=== PATIENT | male | born 1950 | race Two or more races ===

== ENCOUNTER 2021-02-14 07:01 | Day surgery (SDC) | payer OTHER, MEDICAID, SELFPAY ==
--- NOTE | 2021-02-11 16:35 | MHC.SHP ---
Pre-Procedural Eval Section A Date of Service: 02/11/21 The patient is an INPATIENT: No Changes since office visit: No Cold of Flu in the past 2 weeks, No New Medical Problems, No Changes in Medication and No Patient answered all questions The History & Physical has been completed within 30 days and I have reviewed it.: Yes Section B Chief Complaint: cataract Allergies: Allergies Allergy/AdvReac Type Severity Reaction Status Date / Time aspirin [ASPIRIN] Allergy Severe ANAPHYLAXIS Unverified 02/19/20 15:27 ibuprofen [From MOTRIN] Allergy Severe ANAPHYLAXIS Unverified 02/19/20 15:27 Penicillins Allergy Severe ANAPHYLAXIS Unverified 02/19/20 15:27 asenapine [From SAPHRIS] Allergy Intermediate ITCHING Unverified 02/19/20 15:27 influenza virus vaccine, Allergy Intermediate DIZZINESS/S Unverified 02/19/20 15:27 specific OB/CP [FLU VACCINE] quetiapine [From SEROQUEL] Allergy Intermediate HTN Unverified 02/19/20 15:27 morphine [MORPHINE] Allergy Unknown Unknown Unverified 02/08/21 14:53 penicillin G Allergy Unknown Unknown Verified 02/08/21 14:53 ChlorproMAZINE Allergy Unknown Unknown Uncoded 02/08/21 14:53 Clindamycin HCl Allergy Unknown Unknown Uncoded 02/08/21 14:53 Plan Diagnosis/Plan: Unchanged I have reviewed the history and physical and performed a pertinent physical examination on my patient. No changes have occurred unless specified.
[2021-02-14 08:24] VITALS: BP 133/89; PULSE 76; RESP 16; TEMP 36.2; O2SAT 96; BMI 27.6
[2021-02-14] MEDS: Tetracaine HCl/PF 0.5% Oph Sol 4 ML DROPS 1 DROP EYE-RIGHT (08:28)
--- NOTE | 2021-02-14 08:31 | HO.ANESPROP2 ---
HPI - Anesthesia Eval Consult details Narrative: 70 yo male patient for Right cataract extraction, IOL insertion PMFSH Active Problems Active Problems: States heart does not pump well . No documentation of this in medical records. Last echo from 2011 done for CP was normal with EF 60-65%. 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 Past Medical History Medical History Arthritis Back pain BPH (benign prostatic hyperplasia) Depression Elevated cholesterol History of traumatic head injury HTN (hypertension) Schizophrenia Sleep apnea Family History Family history of problems with anesthesia: No Surgical History Surgical History H/O colonoscopy History of esophagogastroduodenoscopy (EGD) History of gastric surgery History of surgery Hx of cataract extraction Hx of cholecystectomy Hx of cystoscopy History of Problems with Anesthesia: No Social History Social History Patient Tobacco Use Status: Never used Tobacco Use of substances other than those prescribed or required for medical reasons: No Advance Directives Information Provided: No Meds Allergies Allergy/AdvReac Type Severity Reaction Status Date / Time aspirin [ASPIRIN] Allergy Severe ANAPHYLAXIS Verified 02/14/21 08:28 ibuprofen [From MOTRIN] Allergy Severe ANAPHYLAXIS Verified 02/14/21 08:28 Penicillins Allergy Severe ANAPHYLAXIS Verified 02/14/21 08:28 asenapine [From SAPHRIS] Allergy Intermediate ITCHING Verified 02/14/21 08:28 influenza virus vaccine, Allergy Intermediate DIZZINESS/S Verified 02/14/21 08:28 specific OB/CP [FLU VACCINE] quetiapine [From SEROQUEL] Allergy Intermediate HTN Verified 02/14/21 08:28 morphine [MORPHINE] Allergy Unknown Unknown Verified 02/14/21 08:28 penicillin G Allergy Unknown Unknown Verified 02/14/21 08:28 ChlorproMAZINE Allergy Unknown Unknown Uncoded 02/08/21 14:53 Clindamycin HCl Allergy Unknown Unknown Uncoded 02/08/21 14:53 Active Medications: Current Medications Generic Name Dose Route Start Last Admin Trade Name Freq PRN Reason Stop Dose Admin Povidone Iodine 1 appl 02/14/21 07:49 Povidone Iodine 5 % Ophth Soln 30 Ml Bottle EYE-RIGHT PREOP PRN Pre-Op Surgical Implant Prophy Home Medications Medication Instructions Recorded Confirmed Last Taken Type Rexulti 02/08/21 02/08/21 Unknown History acetaminophen 325 mg tablet (Mapap mg 02/08/21 Unknown History (acetaminophen)) amlodipine 02/08/21 Unknown History atorvastatin 20 mg tablet 20 mg PO DAILY 02/08/21 02/08/21 Unknown History fluticasone propionate 50 1 spray INTRANASAL DAILY 02/08/21 02/08/21 Unknown History mcg/actuation nasal spray,suspension lorazepam 0.5 mg tablet (Ativan) mg 02/08/21 Unknown History losartan 02/08/21 Unknown History metoprolol tartrate 25 mg tablet mg 02/08/21 Unknown History mirtazapine 45 mg tablet 45 mg PO BEDTIME 02/08/21 02/08/21 Unknown History olanzapine 10 mg tablet 10 mg PO BEDTIME 02/08/21 02/08/21 Unknown History pantoprazole 02/08/21 Unknown History prazosin 5 mg capsule mg 02/08/21 Unknown History sildenafil 50 mg tablet (Viagra) 50 mg PO DAILY PRN 02/08/21 02/08/21 Unknown History solifenacin 5 mg tablet (Vesicare) mg PO 02/08/21 Unknown History trazodone 50 mg tablet 50 mg PO BEDTIME 02/08/21 02/08/21 Unknown History venlafaxine 225 mg tablet,extended mg PO 02/08/21 Unknown History release 24 hr Exam Exam Date and Time: February 14, 2021 0831 Height,Weight and Vital Signs: Height 5 ft 9 in Weight 84.822 kg Last Vital Signs Temp 97.2 F 02/14/21 08:24 Pulse 76 02/14/21 08:24 Resp 16 02/14/21 08:24 BP 133/89 02/14/21 08:24 Pulse Ox 96 02/14/21 08:24 Airway Mallampati Class: III TM Dist: >3cm Neck ROM: Full Loose/Missing/Broken Teeth: Yes (Some missing) Heart: RRR Lungs: CTAB Assessment and Plan Assessment Anesthesia Assessment: Anesthesia Plan Discussed and Chart Reviewed Final Anesthetic Review Family History of Problems with Anesthesia: No History of Problems with Anesthesia: No NPO: Yes ASA Class: III Final Preanesthetic Review: No Changes in Pt Med Stat, Meds/Allgs Chart Reviewed, Consent Obtained/Reviewed and Anes Risks/Benef Reviewed Patient Risk: Intermediate Procedure Risk: Low Assessment/Block/Sedation in SS: Assess/Block/Sedation-SS Anesthetic Plan Anesthetic Plan: MAC: Disposition: Standard PACU
[2021-02-14] MEDS: Tropicamide 1 % Ophth Sol 3 ML BTL 1 DROP EYE-RIGHT ×3 (08:33→08:38)
[2021-02-14] MEDS: Phenylephrine HCL 2.5% Oph SoL 2 ML BOTTLE 1 DROP EYE-RIGHT ×3 (08:35→08:39)
--- NOTE | 2021-02-14 09:30 | HO.PNOPHT ---
Ophthalmology Procedure Procedure Date of Service: 02/14/21 Ophthalmology Viscoelastic: Priyank Cedeñot Dual Pack Pro Ophthalmology Lenses: [id number] [id number] (19) Procedure Notes: PREOPERATIVE DIAGNOSIS: Decreased visual acuity right eye secondary to cataract POSTOPERATIVE DIAGNOSIS: Same PROCEDURE: Right cataract extraction with intraocular lens insertion SURGEON: Heladio Rossi M.D. ANESTHESIA: Topical/MAC ESTIMATED BLOOD LOSS: None COMPLICATIONS: None After obtaining informed consent, the patient was brought to the operating room suite and placed in the supine position. After adequate sedation per anesthesia, topical drops of Tetracaine were given to the right eye. The eye was then prepped and draped in the usual sterile fashion. The operating room microscope was then positioned over the operative eye and a lid speculum placed. A paracentesis was created. Viscoelastic was then instilled into the anterior chamber. A three plane incision was then created temporally, utilizing a 2.85 mm keratome. Capsulotomy forceps were then utilized to create a circular tear capsulotomy. Hydrodissection and hydrodelineation were carried out until adequate mobilization of the nucleus occurred. Phacoemulsification was then utilized to remove the dense central nucleus followed by removal of the cortical material utilizing the automated aspiration irrigation unit. Viscoelastic was instilled into the posterior capsular bag followed by placement of a posterior chamber intraocular lens without difficulty. The residual Viscoelastic was then removed utilizing the automated IA machine. The wound was checked and found to be watertight. The patient tolerated the procedure well and the lid speculum was removed. Intracameral injection of Vigamox 0.1 mL followed by a subtenon injection of Kenalog-40 0.2 mL were administered. The patient will be seen in the a.m.
[2021-02-14 10:00] VITALS: BP 145/90; PULSE 73; RESP 16; TEMP 36.1; O2SAT 98
== END 2021-02-14 10:14 | disposition home or self-care (01) ==
PROVIDERS: Visit Provider Ophthalmology
PROC: (CPT 66985; principal; 2021-02-14 09:40)
DX: H25.11 Age-related nuclear cataract, right eye (principal); H53.8 Other visual disturbances; Z96.1 Presence of intraocular lens; I10 Essential (primary) hypertension; J45.909 Unspecified asthma, uncomplicated; Z79.899 Other long term (current) drug therapy; Z88.8 Allergy status to other drugs, medicaments and biological substances
CPT/HCPCS: 66984; J2250; J3010; J3300; V2632

== ENCOUNTER 2021-09-09 04:22 | Emergency (ER) | payer OTHER, MEDICAID, SELFPAY ==
--- NOTE | ~2021-09-09 | XR_ITS ---
EXAMINATION: XR CHEST CLINICAL INFORMATION: Cough, Covid positive COMPARISON: 07/23/2013 TECHNIQUE: Frontal view of the chest was obtained. FINDINGS: Lung volumes are symmetric. No focal consolidation is seen. No evidence of pneumothorax, pleural effusion, or pulmonary edema. The cardiomediastinal contour is unremarkable. No acute osseous findings are seen. XR/XR chest 1V IMPRESSION: No acute cardiopulmonary findings.
[2021-09-09 04:42] VITALS: BP 129/77; BP 130/88; PULSE 81; PULSE 90; RESP 18; TEMP 37.2; O2SAT 95; O2SAT 99; BMI 28.0
--- NOTE | 2021-09-09 04:52 | ED.URI ---
HPI - URI/Sore Throat General Chief Complaint: General Medical Stated Complaint: COVID SYMPTOMS Time Seen by Provider: 09/09/21 04:51 Source: patient and foreign language interpreter Mode of arrival: EMS Limitations: no limitations History of Present Illness HPI Narrative: vaccinated x 3 first two were Pfizer he has the booster but is not sure which one it was MD elicited complaint: rhinorrhea and other (nausea, myalgias, doesn't feel well, feels weak) Pertinent past history: other (home COVID test positive yesterday) Onset (ago): day(s) (symptoms started on 09/08) Consistency: constant Severity: mild Description of mucous: watery Able to tolerate fluids by mouth: Yes Exacerbating factors: nothing Relieving factors: nothing Context: sick contacts (spoke to someone on a bus who wasn't wearing a mask) Associated symptoms: chills, myalgias, rhinorrhea, cough and nausea Treatments prior to arrival: none Related Data Home Medications Medication Instructions Recorded Confirmed Rexulti 02/08/21 02/08/21 acetaminophen 325 mg tablet (Mapap mg 02/08/21 (acetaminophen)) amlodipine 02/08/21 atorvastatin 20 mg tablet 20 mg PO DAILY 02/08/21 02/08/21 fluticasone propionate 50 1 spray INTRANASAL DAILY 02/08/21 02/08/21 mcg/actuation nasal spray,suspension lorazepam 0.5 mg tablet (Ativan) mg 02/08/21 losartan 02/08/21 metoprolol tartrate 25 mg tablet mg 02/08/21 mirtazapine 45 mg tablet 45 mg PO BEDTIME 02/08/21 02/08/21 olanzapine 10 mg tablet 10 mg PO BEDTIME 02/08/21 02/08/21 pantoprazole 02/08/21 prazosin 5 mg capsule mg 02/08/21 sildenafil 50 mg tablet (Viagra) 50 mg PO DAILY PRN 02/08/21 02/08/21 solifenacin 5 mg tablet (Vesicare) mg PO 02/08/21 trazodone 50 mg tablet 50 mg PO BEDTIME 02/08/21 02/08/21 venlafaxine 225 mg tablet,extended mg PO 02/08/21 release 24 hr Allergies Allergy/AdvReac Type Severity Reaction Status Date / Time aspirin [ASPIRIN] Allergy Severe ANAPHYLAXIS Verified 02/14/21 08:28 ibuprofen [From MOTRIN] Allergy Severe ANAPHYLAXIS Verified 02/14/21 08:28 Penicillins Allergy Severe ANAPHYLAXIS Verified 02/14/21 08:28 asenapine [From SAPHRIS] Allergy Intermediate ITCHING Verified 02/14/21 08:28 influenza virus vaccine, Allergy Intermediate DIZZINESS/S Verified 02/14/21 08:28 specific OB/CP [FLU VACCINE] quetiapine [From SEROQUEL] Allergy Intermediate HTN Verified 02/14/21 08:28 morphine [MORPHINE] Allergy Unknown Unknown Verified 02/14/21 08:28 penicillin G Allergy Unknown Unknown Verified 02/14/21 08:28 ChlorproMAZINE Allergy Unknown Unknown Uncoded 02/08/21 14:53 Clindamycin HCl Allergy Unknown Unknown Uncoded 02/08/21 14:53 Review of Systems Review of Systems: Constitutional : No Fever, pos Chills, pos Fatigue, pos Malaise ENT/Mouth : No sore throat, pos Rhinorrhea Eyes: No Eye Pain, No Swelling, No Redness Cardiovascular : No Chest Pain, No SOB, No Dyspnea on Exertion, No Orthopnea, No Edema, No Palpitations Respiratory : pos Cough, No Sputum, No Wheezing Gastrointestinal : pos Nausea, No Vomiting, No Diarrhea, No Constipation, No abdominal Pain, No Hematochezia, No Melena Genitourinary : No Dysuria, No Urinary Frequency, No Hematuria, Musculoskeletal : No joint pain, No Myalgias, No Joint Swelling Skin : No Skin Lesions, No rash Neuro : pos Weakness, No Numbness, No Dizziness, No Headache Psych : No Anxiety/Panic, No Depression Heme/Lymph: No Bruising, No Bleeding,No Lymphadenopathy Endocrine : No Polyuria, No Polydipsia All other systems reviewed and are negative PMFSH Past Medical History Attestation statement: The following information was validated with the patient. Medical History Arthritis Asthma Back pain BPH (benign prostatic hyperplasia) Depression Elevated cholesterol History of traumatic head injury HTN (hypertension) Schizophrenia Sleep apnea Surgical History H/O colonoscopy History of esophagogastroduodenoscopy (EGD) History of gastric surgery History of surgery Hx of cataract extraction Hx of cholecystectomy Hx of cystoscopy Social History Social History Patient Tobacco Use Status: Never used Tobacco Advance Directives: No Physical Exam Vital Signs: Vital Signs: Last Vital Signs Temp 99.0 F 09/09/21 04:42 Pulse 81 09/09/21 04:42 Resp 18 09/09/21 04:42 BP 129/77 09/09/21 04:42 Pulse Ox 95 09/09/21 04:42 BMI result Body Mass Index 28.0 Appearance: Alert. Oriented X3. No acute distress. Eyes: Pupils equal, round and reactive to light. ENT: Pharynx normal. Neck: Normal inspection. Neck supple. CVS: Normal heart rate and rhythm. Pulses normal. Respiratory: No respiratory distress. Breath sounds normal. Abdomen: Soft and non-tender. Skin: Skin warm and dry. Normal skin color. Normal skin turgor. Extremities: No lower extremity edema. No calf ttp Neuro: Oriented X 3. No motor deficit. No sensory deficit. Course Course Course Narrative: referral form sent for mAb at [facility] patient aware and agrees to go labs stable, no CP/SOB 95% on RA, CXR negative for pneumonia can be managed as outpatient MDM - URI/Sore Throat MDM Narrative Medical decision making narrative: 71 yo male with hx of TBI, HTN, HLD, asthma vaccinated x 3 for COVID reports not feeling well, runny nose, nausea and home COVID test positive yesterday. At this time VS are stable. Will obtain basic labs, CXR, tylenol and zofran. Will refer to [facility] Ab center - he isn't good candidate for paxlovid given his medications including amlodipine, trazodone, atorvastatin. Dispo per results and findings O2 sat > 94% Lab Data Result diagrams: 09/09/21 05:30 09/09/21 05:30 Labs: Lab Results 09/09/21 09/09/21 09/09/21 Range/Units 05:30 05:30 05:30 WBC 6.7 (4.8-10.8) X10*3/uL RBC 3.86 L (4.60-5.80) X10*6/uL Hgb 12.1 L (14.0-18.0) g/dl Hct 36.0 L (42.0-52.0) % MCV 93.3 (80.0-98.0) fL MCH 31.3 (27.0-33.0) pg MCHC 33.6 (31.0-36.0) g/dl RDW 13.4 (11.0-16.0) % Plt Count 158 L (160-400) X10*3/uL MPV 10.5 (9.4-12.4) fL Immature Gran % (Auto) 0.3 (0.0-0.4) % Neut % (Auto) 64.1 (45-73) % Lymph % (Auto) 17.0 L (20-40) % Boyd % (Auto) 12.9 H (2-11) % Eos % (Auto) 5.4 H (0-4) % Baso % (Auto) 0.3 (0-2) % Lymph # (Auto) 1.1 L (1.2-4.9) X10*3/uL Boyd # (Auto) 0.9 (0.1-1.2) X10*3/uL Eos # (Auto) 0.4 (0.0-0.4) X10*3/uL Baso # (Auto) 0.0 (0.0-0.2) X10*3/uL Abs Immat Gran (auto) 0.02 (0.00-0.03) X10*3/uL Absolute Neuts (auto) 4.3 (2.0-8.3) x10*3/uL Absolute Nucleated RBC 0.000 (0.0-0.012) X10*3/uL Nucleated RBC % (auto) 0.0 (0.0-0.2) /100WBC Sodium 137 (135-145) mmol/L Potassium 4.0 (3.3-5.1) mmol/L Chloride 102 (96-108) mmol/L Carbon Dioxide 28 (22-29) mmol/L Anion Gap 11 L (12-20) BUN 9 (9-16) mg/dL Creatinine 1.16 (0.5-1.4) mg/dL Estim Creat Clear Calc 64.3 Estimated GFR > 60 Random Glucose 81 (60-115) mg/dL Calcium 8.4 (8.4-10.2) mg/dL Magnesium 2.1 (1.6-2.6) mg/dL Total Bilirubin 0.6 (0.0-1.0) mg/dL Direct Bilirubin 0.2 (0.0-0.5) mg/dL AST 23 (5-37) U/L ALT 17 (0-40) U/L Alkaline Phosphatase 73 (39-117) U/L Troponin I High Sens (<3.5-35.0) ng/L Total Protein 5.6 L (6.5-8.0) g/dL Albumin 3.6 (3.5-5.0) g/dL COVID-19 (MIKEY) Positive A (Negative) COVID-19 Clin Com See Note Influenza Type A (YULI) (Negative) Influenza Type B (YULI) (Negative) Influenza A & B Note 09/09/21 09/09/21 Range/Units 05:30 05:30 WBC (4.8-10.8) X10*3/uL RBC (4.60-5.80) X10*6/uL Hgb (14.0-18.0) g/dl Hct (42.0-52.0) % MCV (80.0-98.0) fL MCH (27.0-33.0) pg MCHC (31.0-36.0) g/dl RDW (11.0-16.0) % Plt Count (160-400) X10*3/uL MPV (9.4-12.4) fL Immature Gran % (Auto) (0.0-0.4) % Neut % (Auto) (45-73) % Lymph % (Auto) (20-40) % Boyd % (Auto) (2-11) % Eos % (Auto) (0-4) % Baso % (Auto) (0-2) % Lymph # (Auto) (1.2-4.9) X10*3/uL Boyd # (Auto) (0.1-1.2) X10*3/uL Eos # (Auto) (0.0-0.4) X10*3/uL Baso # (Auto) (0.0-0.2) X10*3/uL Abs Immat Gran (auto) (0.00-0.03) X10*3/uL Absolute Neuts (auto) (2.0-8.3) x10*3/uL Absolute Nucleated RBC (0.0-0.012) X10*3/uL Nucleated RBC % (auto) (0.0-0.2) /100WBC Sodium (135-145) mmol/L Potassium (3.3-5.1) mmol/L Chloride (96-108) mmol/L Carbon Dioxide (22-29) mmol/L Anion Gap (12-20) BUN (9-16) mg/dL Creatinine (0.5-1.4) mg/dL Estim Creat Clear Calc Estimated GFR Random Glucose (60-115) mg/dL Calcium (8.4-10.2) mg/dL Magnesium (1.6-2.6) mg/dL Total Bilirubin (0.0-1.0) mg/dL Direct Bilirubin (0.0-0.5) mg/dL AST (5-37) U/L ALT (0-40) U/L Alkaline Phosphatase (39-117) U/L Troponin I High Sens < 3.5 (<3.5-35.0) ng/L Total Protein (6.5-8.0) g/dL Albumin (3.5-5.0) g/dL COVID-19 (MIKEY) (Negative) COVID-19 Clin Com Influenza Type A (YULI) Negative (Negative) Influenza Type B (YULI) Negative (Negative) Influenza A & B Note See Note ECG Data Attestation: I personally reviewed and interpreted this ECG as follows: ECG interpretation date: 09/09/21 ECG interpretation time: 05:35 Interpretation: Rate: 77 Rhythm: NSR [place]: keft Normal P waves. Normal JESS. RBBB ST T wave : nonspecific no ZABRINA qTC: slightly prolonged prior studies: no acute ischemia RBBB is old 2011 The study has been interpreted contemporaneously by me. Discharge Plan Discharge Clinical Impression: COVID-19 Patient Disposition: Home, Self-Care Instructions: COVID-19 (Coronavirus Disease 2019) (ED) Additional Instructions: return to ED for any worsening symptoms or concerns regrese al departamento de emergencias si tiene dificultad para respirar o si mcdowell saturaci?n de ox?maurizio por debajo del 92%. El centro monoclonal lo llamar? a mcdowell casa para recibir tratamiento. use aleshia m?scara, ponga en cuarentena y proteja a los dem?s por favor cuarentena por 7 bocanegra Prescriptions: No Action acetaminophen [Mapap (acetaminophen)] 325 mg Tablet 0RF atorvastatin 20 mg Tablet 20 mg PO DAILY 0RF olanzapine 10 mg Tablet 10 mg PO BEDTIME 0RF prazosin 5 mg Capsule 0RF lorazepam [Ativan] 0.5 mg Tablet 0RF mirtazapine 45 mg Tablet 45 mg PO BEDTIME 0RF fluticasone propionate [Flonase] 50 mcg/actuation [place],Suspension 1 spray INTRANASAL DAILY 0RF metoprolol tartrate 25 mg Tablet 0RF amlodipine 0RF losartan 0RF pantoprazole 0RF trazodone 50 mg Tablet 50 mg PO BEDTIME 0RF sildenafil [Viagra] 50 mg Tablet 50 mg PO DAILY PRN (Reason: Erectile Dysfunction) 0RF solifenacin [Vesicare] 5 mg Tablet PO 0RF venlafaxine 225 mg Tablet Extended Release 24hr PO 0RF Rexulti 0RF Print Language: Icelandic
--- NOTE | 2021-09-09 04:54 | ECG_ITS ---
Test Reason : CHEST PAIN Blood Pressure : / mmHG Vent. Rate : 077 BPM Atrial Rate : 077 BPM P-R Int : 192 ms QRS Dur : 152 ms QT Int : 448 ms P-R-T Axes : 050 -21 021 degrees QTc Int : 506 ms Normal sinus rhythm Right bundle branch block Abnormal ECG When compared with ECG of 26-SEP-2011 10:29, Nonspecific T wave abnormality now evident in Anterior leads Referred By: Daniella Lloyd Electronically Signed By:LISSETTE RIDDLE MD
[2021-09-09] MEDS: Acetaminophen 325 MG TABLET 650 MG PO (05:32)
[2021-09-09] MEDS: Ondansetron ODT 4 MG TAB.RAPDIS TRANSLINGU (05:33)
[2021-09-09 05:37] LABS: Basophils Percent Auto 0.3 % (0-2); Eosinophils Absolute Auto 0.4 X10*3/uL (0.0-0.4); Eosinophils Percent Auto 5.4 % (0-4); Hemoglobin 12.1 g/dl (14.0-18.0); Imm Gran Abs Auto 0.02 X10*3/uL (0.00-0.03); Imm Gran Pct Auto 0.3 % (0.0-0.4); Lymphocytes Absolute Auto 1.1 X10*3/uL (1.2-4.9); MANUAL DIFF FLAG NO; Mean Corpuscular HGB Conc 33.6 g/dl (31.0-36.0); Mean Corpuscular Hemoglobin 31.3 pg (27.0-33.0); Mean Corpuscular Volume 93.3 fL (80.0-98.0); Mean Platelet Volume 10.5 fL (9.4-12.4); Monocytes Absolute Auto 0.9 X10*3/uL (0.1-1.2); Monocytes Percent Auto 12.9 % (2-11); Neutrophils Absolute Auto 4.3 x10*3/uL (2.0-8.3); Neutrophils Percent Auto 64.1 % (45-73); Platelet Count 158 X10*3/uL (160-400); Red Blood Count 3.86 X10*6/uL (4.60-5.80); Red Cell Distribution Width 13.4 % (11.0-16.0); White Blood Count 6.7 X10*3/uL (4.8-10.8)
[2021-09-09 05:42] LABS: COVID-19 Test Positive (Negative); IDNOW Serial# 16C4AD1C
[2021-09-09 05:52] LABS: Influenza A Negative (Negative); Influenza B2 Negative (Negative)
[2021-09-09 05:56] LABS: Troponin-I High Sensitivity < 3.5 ng/L (<3.5-35.0)
[2021-09-09 06:10] LABS: Alanine Aminotransferase 17 U/L (0-40); Albumin Level 3.6 g/dL (3.5-5.0); Alkaline Phosphatase 73 U/L (39-117); Aspartate Amino Transferase 23 U/L (5-37); Bilirubin Direct 0.2 mg/dL (0.0-0.5); Bilirubin Total 0.6 mg/dL (0.0-1.0); Blood Urea Nitrogen 9 mg/dL (9-16); Calcium 8.4 mg/dL (8.4-10.2); Creatinine Clr Calc Pharmacy 64.3; Estimated Glomerular Filt Rate > 60; Glucose Random 81 mg/dL (60-115); Magnesium 2.1 mg/dL (1.6-2.6); Total Protein 5.6 g/dL (6.5-8.0)
[2021-09-09 06:19] LABS: Anion Gap 11 (12-20); Carbon Dioxide 28 mmol/L (22-29); Chloride 102 mmol/L (96-108); Sodium 137 mmol/L (135-145)
== END 2021-09-09 07:34 | disposition home or self-care (01) ==
PROVIDERS: Emergency Provider Emergency Medicine
DX: U07.1 COVID-19 (principal); M79.10 Myalgia, unspecified site; R05.9 Cough, unspecified; R68.83 Chills (without fever); Z79.899 Other long term (current) drug therapy
CPT/HCPCS: 71045; 80048; 80076; 83735; 84484; 85025; 87502; 87635; 93005; 99283

== ENCOUNTER 2022-08-16 10:39 | Outpatient (REF) | payer MEDICARE, OTHER, SELFPAY ==
[2022-08-16 13:32] LABS: MANUAL DIFF FLAG NO
[2022-08-16 13:47] LABS: Basophils Absolute Auto 0.1 X10*3/uL (0.0-0.2); Basophils Percent Auto 0.7 % (0-2); Eosinophils Absolute Auto 0.5 X10*3/uL (0.0-0.4); Eosinophils Percent Auto 6.9 % (0-4); Hematocrit 41.1 % (42.0-52.0); Hemoglobin 13.8 g/dl (14.0-18.0); Imm Gran Abs Auto 0.01 X10*3/uL (0.00-0.03); Imm Gran Pct Auto 0.1 % (0.0-0.4); Lymphocytes Absolute Auto 2.3 X10*3/uL (1.2-4.9); Lymphocytes Percent Auto 33.3 % (20-40); Mean Corpuscular HGB Conc 33.6 g/dl (31.0-36.0); Mean Corpuscular Hemoglobin 31.7 pg (27.0-33.0); Mean Corpuscular Volume 94.5 fL (80.0-98.0); Mean Platelet Volume 10.9 fL (9.4-12.4); Monocytes Absolute Auto 0.7 X10*3/uL (0.1-1.2); Monocytes Percent Auto 10.3 % (2-11); Neutrophils Absolute Auto 3.3 x10*3/uL (2.0-8.3); Neutrophils Percent Auto 48.7 % (45-73); Platelet Count 190 X10*3/uL (160-400); Red Blood Count 4.35 X10*6/uL (4.60-5.80); Red Cell Distribution Width 13.1 % (11.0-16.0); White Blood Count 6.8 X10*3/uL (4.8-10.8)
[2022-08-16 14:01] LABS: Alanine Aminotransferase 23 U/L (0-40); Albumin Level 3.9 g/dL (3.5-5.0); Alkaline Phosphatase 79 U/L (39-117); Anion Gap 10 (12-20); Aspartate Amino Transferase 23 U/L (5-37); Bilirubin Total 0.5 mg/dL (0.0-1.0); Blood Urea Nitrogen 10 mg/dL (9-16); Calcium 8.9 mg/dL (8.4-10.2); Carbon Dioxide 31 mmol/L (22-29); Chloride 104 mmol/L (96-108); Estimated Glomerular Filt Rate > 60; Glucose Random 95 mg/dL (60-115); Sodium 141 mmol/L (135-145); Total Protein 5.9 g/dL (6.5-8.0)
[2022-08-16 14:06] LABS: Estimated Average Glucose 126 mg/dL
[2022-08-16 14:11] LABS: PSA,Total (Free>4and<10) 0.27 ng/mL (0.00-4.00); TSH reflex Free T4 2.96 uIU/mL (0.32-4.0)
== END 2022-08-16 10:40 | disposition home or self-care (01) ==
LOC: HO.10HDL 10:39
PROVIDERS: Visit Provider Nurse Practitioner Family
DX: Z13.0 Encounter for screening for diseases of the blood and blood-forming organs and certain disorders involving the immune mechanism (principal); Z12.5 Encounter for screening for malignant neoplasm of prostate; Z13.29 Encounter for screening for other suspected endocrine disorder; D64.9 Anemia, unspecified
CPT/HCPCS: 36415; 80053; 83036; 84153; 84443; 85025

== ENCOUNTER 2022-09-21 15:23 | Outpatient (REF) | payer MEDICARE, OTHER, SELFPAY ==
--- NOTE | ~2022-09-21 | XR_ITS ---
EXAMINATION: XR CHEST CLINICAL INFORMATION: R06.02 - Shortness of breath COMPARISON: Chest radiographs 09/09/2021, 07/14/2013 TECHNIQUE: 2 views of the chest were obtained. FINDINGS: There is subtle subsegmental airspace opacity anterior lateral right mid zone. There is no lobar or segmental airspace consolidation. No air bronchogram. The costophrenic sulci are clear and there is no effusion. Heart size normal. The hilar and mediastinal contours are normal. No acute bony abnormality. Again, there are numerous surgical clips upper abdomen. XR/XR chest 2V IMPRESSION: -Small subsegmental airspace opacity or atelectasis anterior lateral right mid zone. -Lungs otherwise clear. No vascular congestion. No effusion.
== END 2022-09-21 15:24 | disposition home or self-care (01) ==
LOC: HO.XRAY 15:23
PROVIDERS: PCP Internal Medicine; Visit Provider Nurse Practitioner Family
DX: R06.02 Shortness of breath (principal); R50.9 Fever, unspecified
CPT/HCPCS: 71046

== ENCOUNTER 2022-11-22 07:33 | Outpatient (REF) | payer MEDICARE, SELFPAY ==
[2022-11-22 07:43] LABS: MANUAL DIFF FLAG NO
[2022-11-22 08:37] LABS: Basophils Percent Auto 0.6 % (0-2); Eosinophils Absolute Auto 0.6 X10*3/uL (0.0-0.4); Eosinophils Percent Auto 8.3 % (0-4); Hematocrit 41.7 % (42.0-52.0); Hemoglobin 13.9 g/dl (14.0-18.0); Imm Gran Abs Auto 0.01 X10*3/uL (0.00-0.03); Imm Gran Pct Auto 0.1 % (0.0-0.4); Lymphocytes Absolute Auto 2.2 X10*3/uL (1.2-4.9); Lymphocytes Percent Auto 31.9 % (20-40); Mean Corpuscular HGB Conc 33.3 g/dl (31.0-36.0); Mean Corpuscular Hemoglobin 31.4 pg (27.0-33.0); Mean Corpuscular Volume 94.3 fL (80.0-98.0); Mean Platelet Volume 10.9 fL (9.4-12.4); Monocytes Absolute Auto 0.7 X10*3/uL (0.1-1.2); Monocytes Percent Auto 9.5 % (2-11); Neutrophils Absolute Auto 3.4 x10*3/uL (2.0-8.3); Neutrophils Percent Auto 49.6 % (45-73); Platelet Count 181 X10*3/uL (160-400); Red Blood Count 4.42 X10*6/uL (4.60-5.80); Red Cell Distribution Width 13.2 % (11.0-16.0); White Blood Count 6.9 X10*3/uL (4.8-10.8)
[2022-11-22 09:17] LABS: Cholesterol 150 mg/dL; HDL Cholesterol 45 mg/dL; Iron 110 mcg/dL (45-160); LDL Cholesterol Calculated 75 mg/dl; Percent Iron Saturation 37 % (15-50); Total Iron Binding Capacity 297 mcg/dL (228-428); Triglycerides 152 mg/dL; Unsaturated Iron Binding 187 ug/dL
[2022-11-22 09:37] LABS: Ferritin 119 ng/mL (20-250); Vitamin D 25-OH Total 64.5 ng/mL (>30)
[2022-11-22 09:50] LABS: Creatinine Urine 120.69 mg/dL; Microalbumin Urine < 5.0 mg/L
== END 2022-11-22 07:34 | disposition home or self-care (01) ==
LOC: HO.LAB 07:33
PROVIDERS: PCP Nurse Practitioner Family; Visit Provider Nurse Practitioner Family
DX: Z13.21 Encounter for screening for nutritional disorder (principal); Z13.220 Encounter for screening for lipoid disorders; Z13.0 Encounter for screening for diseases of the blood and blood-forming organs and certain disorders involving the immune mechanism; I10 Essential (primary) hypertension; D64.9 Anemia, unspecified
CPT/HCPCS: 36415; 80061; 82043; 82306; 82728; 83540; 85025

== ENCOUNTER → 2022-12-15 08:36 | Outpatient (BNVA) | payer MEDICARE, OTHER, SELFPAY | PROVIDERS: Visit Provider Nurse Practitioner ==

== ENCOUNTER 2022-12-28 14:22 | Outpatient (REF) | payer MEDICARE, OTHER, SELFPAY ==
[2022-12-28 15:35] LABS: Vitamin D 25-OH Total 60.3 ng/mL (>30)
== END 2022-12-28 14:23 | disposition home or self-care (01) ==
LOC: HO.LAB 14:22
PROVIDERS: PCP Nurse Practitioner Family; Visit Provider Nurse Practitioner Family
DX: E55.9 Vitamin D deficiency, unspecified (principal)
CPT/HCPCS: 36415; 82306

== ENCOUNTER 2023-01-05 08:15 | Outpatient (AMB) | payer MEDICARE, OTHER, SELFPAY ==
--- NOTE | 2023-01-05 08:19 | A.OFFVIS_ITS ---
Intake Vital Signs 01/05/23 08:20 Height 5 ft 9 in Weight 193 lb BMI 28.5 BP 140/76 H Blood Pressure Location Lt brachial Position Sitting Pulse 76 Intake Visit Reasons: Follow up constipation Intake Note: Follow up for Constipation. Patient cc: acid reflex with burning sensation and some swallowing problems. Denies any other GI issues. Electrical Installation Supervisor Required: Yes Electrical Installation Supervisor Name: Amy [facility] Accompanied by: Self / Same As Patient Allergies aspirin [ASPIRIN] Allergy (Severe, Verified 01/05/23 08:18) ANAPHYLAXIS ibuprofen [From MOTRIN] Allergy (Severe, Verified 01/05/23 08:18) ANAPHYLAXIS Penicillins Allergy (Severe, Verified 01/05/23 08:18) ANAPHYLAXIS asenapine [From SAPHRIS] Allergy (Intermediate, Verified 01/05/23 08:18) ITCHING influenza virus vaccine, specific [FLU VACCINE] Allergy (Intermediate, Verified 01/05/23 08:18) DIZZINESS/SOB/CP quetiapine [From SEROQUEL] Allergy (Intermediate, Verified 01/05/23 08:18) HTN morphine [MORPHINE] Allergy (Unknown, Verified 01/05/23 08:18) Unknown penicillin G Allergy (Unknown, Verified 01/05/23 08:18) Unknown ChlorproMAZINE Allergy (Unknown, Uncoded 08/10/22 12:53) Unknown Clindamycin HCl Allergy (Unknown, Uncoded 08/10/22 12:53) Unknown HPI Follow up constipation HPI Details Assessment & Plan (1) Pre-op examination: ?Code(s): Z01.818 - Encounter for other preprocedural examination ?Plan: [place] #[place] His last scope was [address] Pendleton. He complains of a lot of gas and bloating. He has a gas pill he takes every 6 hours that is not very helpful. He also has periumbilical pain. 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 He complains of bloating and with discussion he is suffering CIC with incomplete evacuation and tenesmus. Has failed all OTC's will start LInzess? 72 and titrate. He is also c/o N/V that happens about 5 times a week, usually in the afternoon. I will try to get an EGD as well. There are no prior problems with anesthesia or sedation His asthma is well controlled and he has a hx of CHF and no insight into how well this is controlled, he shows me he has nitrogylcerin for heart pain. He does not have a account officer at the moment. He has had cardiac tests at [facility]. He will now need cardiac clearance. No ID problems. He says his sister had CRC at age 50.? Return office visit in 3 weeks and of course after the procedures (2) Sleep apnea: ?Comment: uses CPAP ?Code(s): G47.30 - Sleep apnea, unspecified (3) Congestive heart failure: ?Code(s): I50.9 - Heart failure, unspecified (4) Schizophrenia: ?Code(s): F20.9 - Schizophrenia, unspecified (5) Chronic idiopathic constipation: ?Code(s): K59.04 - Chronic idiopathic constipation (6) Family history of colon cancer: ?Comment: sister in 50's ?Code(s): Z80.0 - Family history of malignant neoplasm of digestive organs ? ? ? Medications: New linaclotide (Linze ss) 72 mcg PO QAM 30 c aps 3RF K59.04 - Chronic i diopathic constipa tion ? peg 3350-electroly pedro 236-22.74-6.74 -5.86 gram (Golyt rukhsana) ?? until feca l effluent is najma r; do not exceed a total volume of 2 ,000 mL 240 mL PO Q10M 4,0 00 mL 0RF 1 day Z12.11 - Encounter for screening for malignant neoplas m of colon ? COLONOSCOPY not yet scheduled BIOPSY TODAY'S VISIT [place] # Amy, Live He received the LInzess and at 72mcg it is moving his bowels well. This has resolved the tenesmus but not the upper abd bloating with eating. This continues to be puzzling but of course were also still waiting on the upper endoscopy to see if this can to our diagnostic information. Again, he has a history of having stomach surgery for severe ulcer disease and I am uncertain how much this is impacting his symptoms. Doorknob c/o itching on shins. No new meds, no bauer, no other locations. I will prescribe Hydrocortisone cream as a courtesy. RJOV 3 mos [facility] Medical History (Updated 01/05/23 @ 08:39 by ANN Banda) Anemia Arthritis Asthma Back pain BPH (benign prostatic hyperplasia) Depression Elevated cholesterol History of traumatic head injury HTN (hypertension) Nausea and vomiting Schizophrenia Shortness of breath Sleep apnea Surgical History H/O colonoscopy History of esophagogastroduodenoscopy (EGD) History of gastric surgery History of surgery Hx of cataract extraction Hx of cholecystectomy Hx of cystoscopy Family History Mother Cancer Father Prostate cancer Brother No problems noted. Sister Colon cancer Social History Housing: Apartment Alcohol intake: never Patient Tobacco Use Status: Never used Tobacco e-Cigarette/Vaping Use: Never Used service: No Current occupational status: disabled Cognitive needs: No Hearing needs: No Vision needs: No Review of Systems Const Denies fatigue, Denies fever(s), Denies night sweats, Denies poor appetite and Denies weight loss ENT Reports Normal hearing present, Denies dental pain, Denies dysphagia, Denies hearing loss, Denies mouth pain, Denies odynophagia, Denies throat swelling, Denies tongue swelling and Reports other (Dentition adequate) Card Reports no additional complaints Resp Reports no additional complaints GI Denies abdominal pain, Denies melena, Reports bloating, Denies hematochezia, Reports constipation, Denies GI cramping, Denies dysphagia, Denies excessive flatus, Denies early satiety, Reports heartburn, Denies diarrhea, Denies nausea, Denies odynophagia, Denies vomiting and Denies hematemesis Skin/Breast Denies pruritus, Denies lesions, Denies rash and Denies jaundice Neuro Reports Normal hearing present and Denies Abnormal speech present Endo Denies fatigue Aller/Immun Denies throat swelling and Denies tongue swelling Physical Exam Vital Signs: Last Vital Signs Pulse 76 01/05/23 08:20 BP 140/76 H 01/05/23 08:20 BMI result Body Mass Index 28.5 Const General: cooperative, no acute distress, well developed and well groomed Nutritional Appearance: average body habitus and well nourished Orientation/consciousness: oriented to person, oriented to place and oriented to time Limitations: language barrier HEENT Head: Yes normocephalic and Yes atraumatic Eyes General: appearance normal, both eyes and all related structures Pupils: Equal, round and reactive pupils present Neck Neck: Yes normal visual inspection and Yes no lymphadenopathy Thyroid: Thyroid normal Resp Effort & Inspection: normal respiratory effort and able to speak in complete sentences Auscultation: clear to auscultation bilaterally Cardio Rate: regular rate Rhythm: regular rhythm Heart sounds: Normal, physiologic split S2 sound present Peripheral pulses: radial pulses present and posterior tibial pulses present GI Inspection: No distended and No Abdominal panniculus present Palpation (GI): Soft to palpation, nontender, no guarding, not rigid and No hepatosplenomegaly present Percussion: Yes normal to percussion Auscultation: normal bowel sounds Rectal Exam - Male: Yes deferred Skin General skin exam: no rashes or lesions noted, turgor normal, skin not dry, no jaundice, No spider nevi and no striae Rashes: no rashes Nails: normal Neuro General: oriented to person, oriented to place and oriented to time Cranial nerves: Yes Equal, round and reactive pupils present and Yes Normal hearing present Speech: No Abnormal speech present Extrem General: Yes normal to inspection, No clubbing, No cyanosis and No edema Psych Appearance: grossly normal and well kempt Mental Status: mental status grossly normal Speech and movement: Normal speech and movement present Affect: normal affect Attitude: cooperative Thought process: Normal thought process present and not confabulating Thought content: Normal thought content present Insight: Limited insight present (Psych) Judgement: Limited judgement present (Psych) Assessment & Plan Assessment & Plan (1) Chronic idiopathic constipation: Code(s): K59.04 - Chronic idiopathic constipation Plan: . COLONOSCOPY/EGD not yet scheduled BIOPSY TODAY'S VISIT [place] # Amy, Live He received the LInzess and at 72mcg it is moving his bowels well. This has resolved the tenesmus but not the upper abd bloating with eating. This continues to be puzzling but of course were also still waiting on the upper endoscopy to see if this can to our diagnostic information. Again, he has a history of having stomach surgery for severe ulcer disease and I am uncertain how much this is impacting his symptoms. Doorknob c/o itching on shins. No new meds, no bauer, no other locations. I will prescribe Hydrocortisone cream as a courtesy. PRESTON 3 mos (2) Family history of colon cancer: Comment: sister in 50's Code(s): Z80.0 - Family history of malignant neoplasm of digestive organs (3) Rash and nonspecific skin eruption: Comment: on shins bilaterally Code(s): R21 - Rash and other nonspecific skin eruption Medications: New hydrocortisone 1% (Anti-Itch (hydrocortisone)) 1 appl topical TID 28.4 grams 3RF R21 - Rash and other nonspecific skin eruption Refilled linaclotide (Linzess) 72 mcg PO QAM 30 caps 6RF K59.04 - Chronic idiopathic constipation Coding Level of Care Code Est Pt Level 3 (42638) Diagnoses Chronic idiopathic constipation K59.04 Family history of colon cancer Z80.0 Rash and nonspecific skin eruption R21
[2023-01-05 08:20] VITALS: BP 140/76; PULSE 76; BMI 28.5
== END 2023-01-05 09:06 | disposition home or self-care (01) ==
PROVIDERS: PCP Nurse Practitioner Family; Visit Provider Nurse Practitioner
DX: K59.04 Chronic idiopathic constipation (principal); Z80.0 Family history of malignant neoplasm of digestive organs; R21 Rash and other nonspecific skin eruption
CPT/HCPCS: 99213

== ENCOUNTER → 2023-01-05 08:15 | Outpatient (BNVA) | payer MEDICARE, OTHER, SELFPAY | PROVIDERS: PCP Nurse Practitioner Family; Visit Provider Nurse Practitioner | DX: K59.04 Chronic idiopathic constipation (principal); R21 Rash and other nonspecific skin eruption; Z80.0 Family history of malignant neoplasm of digestive organs | CPT/HCPCS: 99212 ==

== ENCOUNTER 2023-02-20 09:07 | Outpatient (AMB) | payer MEDICARE, OTHER, SELFPAY ==
--- NOTE | 2023-02-20 09:19 | MHC.PC.OV ---
Vital Signs 02/20/23 09:22 02/20/23 09:41 Height 5 ft 9 in Weight 197 lb 4 oz BMI 29.1 BP 110/70 Blood Pressure Location Lt brachial Position Sitting Pulse 47 L 64 Pulse Source Pulse Oximeter Pulse Oximeter Pulse Oximetry (%) 96 Oxygen Delivery Method Room Air Intake Visit Reasons: F/Up HTN, CHF, schizophrenia Intake Note: Patient is here to follow up on HTN, CHF, Schizopgernia. Liquefied Natural Gas Operator Required: Yes Liquefied Natural Gas Operator Language: Entertainment Centre Manager Name: Jackie [id number]) Information Interpreted: non-clinical & clinical User Experience Designer: Not Required per policy Accompanied by: Self / Same As Patient Allergies aspirin [ASPIRIN] Allergy (Severe, Verified 02/20/23 09:22) ANAPHYLAXIS ibuprofen [From MOTRIN] Allergy (Severe, Verified 02/20/23 09:22) ANAPHYLAXIS Penicillins Allergy (Severe, Verified 02/20/23 09:22) ANAPHYLAXIS asenapine [From SAPHRIS] Allergy (Intermediate, Verified 02/20/23 09:22) ITCHING influenza virus vaccine, specific [FLU VACCINE] Allergy (Intermediate, Verified 02/20/23 09:22) DIZZINESS/SOB/CP quetiapine [From SEROQUEL] Allergy (Intermediate, Verified 02/20/23 09:22) HTN morphine [MORPHINE] Allergy (Unknown, Verified 02/20/23 09:22) Unknown penicillin G Allergy (Unknown, Verified 02/20/23 09:22) Unknown ChlorproMAZINE Allergy (Unknown, Uncoded 02/20/23 09:22) Unknown Clindamycin HCl Allergy (Unknown, Uncoded 02/20/23 09:22) Unknown Tobacco use date assessed: 02/20/23 Fall risk assessment: No Falls in past year Last assessed Fall Risk: 02/20/23 Dental Screening Dental Screen Date: 02/20/23 Did you have a dental visit in the last 12 months?: Yes Did you have a dental problem in the last 6 months where you did not have access to dental care?: No Was dental information given to patient?: Patient has dentist HPI HPI Comments History of Present Illness Details 72-year-old male the history of hypertension,ED, depression,CHF, schizophrenia, ANAYA and elevated cholesterol.?Patient last seen in November presents today for follow up. Review of the notes patient has been seen by Gastroenterology for history of chronic idiopathic constipation patient was started on Linzess with good effect, patient's last colonoscopy was over 15 years ago plan for EGD and colonoscopy. However patient reported that he had nitroglycerin for chest pain to be will require cardiac clearance, patient was previously referred to Dr. Montgomery for history CHF however he no showed for this appointment. Patient reports today that he follows with Dr Danuta Torrespden [facility], will request last office note. Patient has a noted subconjunctival hemorrhage to right eye that he states occurred from blowing his nose. Denies any vison changes Patient also reports that he has pain in his right nostril, scabbed noted in right nostril patient advised to use humidifier to put moisture into the air can use [id number] nasal saline to help moisten mucous membranes. [facility] Medical History (Updated 01/05/23 @ 08:39 by ANN Banda) Nausea and vomiting Shortness of breath Anemia Asthma BPH (benign prostatic hyperplasia) Arthritis Back pain History of traumatic head injury Schizophrenia Depression Sleep apnea Elevated cholesterol HTN (hypertension) Surgical History History of surgery Hx of cataract extraction Hx of cystoscopy Hx of cholecystectomy History of gastric surgery History of esophagogastroduodenoscopy (EGD) H/O colonoscopy Family History (Updated 02/20/23 @ 09:21 by DARREN Rucker) Mother Cancer Father Prostate cancer Brother No problems noted. Sister Colon cancer Other Mental health disorder Social History Housing: Apartment Alcohol intake: never Patient Tobacco Use Status: Never used Tobacco e-Cigarette/Vaping Use: Never Used Second Hand Smoke Exposure: No service: No Current occupational status: disabled Cognitive needs: No Hearing needs: No Vision needs: No Questionnaire Thrive Questionnaire Date Thrive assessed: 08/10/22 BENY-7 AMB Questionnaire BENY-7 Date BENY - 7 assessed: 11/20/22 Source: Developed by Drs. Sourav Dela Cruz, Camila Lau, Gerard Nuñez and colleagues, with an educational dc from [employer] Review of Systems Const Denies chills, Denies fatigue, Denies fever(s) and Denies poor appetite Eyes Denies no additional complaints ENT Reports Normal hearing present Card Denies chest pain, Denies syncope, Denies rapid heart rate and Denies dyspnea Resp Denies cough and Denies dyspnea GI Denies change in stool character, Denies constipation, Denies diarrhea, Denies nausea and Denies vomiting Denies dysuria, Denies urinary frequency and Denies urinary urgency Neuro Reports Normal hearing present, Denies confusion and Denies syncope Psych Denies confusion Endo Denies fatigue Physical exam (Primary Care) Vital Signs: Last Vital Signs Pulse 64 02/20/23 09:41 BP 110/70 02/20/23 09:22 Pulse Ox 96 02/20/23 09:22 Oxygen Delivery Method Room Air 02/20/23 09:22 BMI result Body Mass Index 29.1 Tobacco/Smoking Status: Tobacco use Status Tobacco use date assessed 02/20/23 02/20/23 09:32 Patient Tobacco Use Status Never used Tobacco 02/20/23 09:19 e-Cigarette/Vaping Use Never Used 02/20/23 09:19 Thrive Assessment: Date of Thrive Assessment Date Thrive assessed 08/10/22 02/20/23 09:19 Const General: No confusion Orientation/consciousness: No confusion HENMT Head: Yes normocephalic and Yes atraumatic Eyes Conjunctivae: conjunctivae normal Chest Chest palpation & inspection: normal inspection of the chest Resp Effort & Inspection: normal respiratory effort Auscultation: clear to auscultation bilaterally, no crackles, no rhonchi and no wheezes Cardio Rate: regular rate Rhythm: regular rhythm Heart sounds: S1 normal heart sound present and S2 normal heart sound present GI Inspection: Yes normal to inspection Neuro General: No confusion Cranial nerves: Yes Normal hearing present Extrem General: No edema Assessment and Plan Assessment & Plan (1) Schizophrenia: Code(s): F20.9 - Schizophrenia, unspecified Plan: Continue to follow with Dr. Eagle psychiatrist. Continue on current medications. (2) HTN (hypertension): Code(s): I10 - Essential (primary) hypertension Plan: Continue on Imdur and metoprolol (3) Congestive heart failure: Code(s): I50.9 - Heart failure, unspecified Plan: Last office note requested by patient's user experience designer Dr. Tipton. (4) Hypercholesteremia: Code(s): E78.00 - Pure hypercholesterolemia, unspecified Plan: Continue on atorvastatin 20 mg daily. Avoid fried foods, chicken skin, eggs, butter,margarine, pastries and?? red meat. (5) Depression: Code(s): F32.9 - Major depressive disorder, single episode, unspecified Plan: Continue on current medications and continue to follow with psychiatrist. (6) Subconjunctival hemorrhage of right eye: Code(s): H11.31 - Conjunctival hemorrhage, right eye Plan: should resolve in 1-2 weeks. Plan follow up in 3 months Orders: Orders Complete Blood Count Auto Diff Today Z13.0 - Encounter for screening for diseases of the blood and blood-forming organs and certain disorders involving the immune mechanism Lipid Panel Today E78.00 - Pure hypercholesterolemia, unspecified Comprehensive Delta. Panel Fast Today I10 - Essential (primary) hypertension Medications: Refilled ascorbic acid (vitamin C) 500 mg PO DAILY 90 caps 3RF triamcinolone acetonide 0.5% 1 appl topical BID 15 grams 3RF Coding Level of Care Code Est Pt Level 4 (39663) Diagnoses Schizophrenia F20.9 HTN (hypertension) I10 Congestive heart failure I50.9 Hypercholesteremia E78.00 Depression F32.9 Subconjunctival hemorrhage of right eye H11.31
[2023-02-20 09:22] VITALS: BP 110/70; PULSE 47; O2SAT 96; BMI 29.1
[2023-02-20 09:41] VITALS: PULSE 64
== END 2023-02-20 09:54 | disposition home or self-care (01) ==
PROVIDERS: PCP Internal Medicine; Visit Provider Nurse Practitioner Family
DX: F20.9 Schizophrenia, unspecified (principal); I11.0 Hypertensive heart disease with heart failure; I50.9 Heart failure, unspecified; F32.9 Major depressive disorder, single episode, unspecified; E78.00 Pure hypercholesterolemia, unspecified; H11.31 Conjunctival hemorrhage, right eye
CPT/HCPCS: 99214

== ENCOUNTER 2023-04-06 08:30 | Outpatient (AMB) | payer MEDICARE, OTHER, SELFPAY ==
--- NOTE | 2023-04-06 08:32 | A.OFFVIS_ITS ---
Intake Vital Signs 04/06/23 08:35 Height 5 ft 9 in Weight 194 lb 0.108 oz BMI 28.6 BP 149/81 H Blood Pressure Location Lt brachial Position Sitting Pulse 55 Intake Visit Reasons: 3 weeks follow up Intake Note: Bill presents in the office as a 3 week follow up. CC: He states that he is not having any GI concerns but he does have a vein that popped out on his left left. He states that the cardio dr said he heart tests all came out good so he is unsure of this vein in his leg. Obiee Lead Developer Required: Yes Obiee Lead Developer Name: Chanda [id number] Allergies aspirin [ASPIRIN] Allergy (Severe, Verified 04/06/23 08:36) ANAPHYLAXIS ibuprofen [From MOTRIN] Allergy (Severe, Verified 04/06/23 08:36) ANAPHYLAXIS Penicillins Allergy (Severe, Verified 04/06/23 08:36) ANAPHYLAXIS asenapine [From SAPHRIS] Allergy (Intermediate, Verified 04/06/23 08:36) ITCHING influenza virus vaccine, specific [FLU VACCINE] Allergy (Intermediate, Verified 04/06/23 08:36) DIZZINESS/SOB/CP quetiapine [From SEROQUEL] Allergy (Intermediate, Verified 04/06/23 08:36) HTN morphine [MORPHINE] Allergy (Unknown, Verified 04/06/23 08:36) Unknown penicillin G Allergy (Unknown, Verified 04/06/23 08:36) Unknown ChlorproMAZINE Allergy (Unknown, Uncoded 04/06/23 08:36) Unknown Clindamycin HCl Allergy (Unknown, Uncoded 04/06/23 08:36) Unknown HPI 3 weeks follow up HPI Details Assessment & Plan (1) Chronic idiopathic constipation: Code(s): K59.04 - Chronic idiopathic constipation Plan: . He received the LInzess and at 72mcg it is moving his bowels well. This has resolved the tenesmus but not the upper abd bloating with eating. This continues to be puzzling but of course were also still waiting on the upper endoscopy to see if this can to our diagnostic information. Again, he has a history of having stomach surgery for severe ulcer disease and I am uncertain how much this is impacting his symptoms. Doorknob c/o itching on shins. No new meds, no bauer, no other locations. I will prescribe Hydrocortisone cream as a courtesy. RJOV 3 mos (2) Family history of colon cancer: Comment: sister in 50's Code(s): Z80.0 - Family history of malignant neoplasm of digestive organs (3) Rash and nonspecific skin eruption: Comment: on shins bilaterally Code(s): R21 - Rash and other nonspecific skin eruption Medications: New hydrocortisone 1% (Anti-Itch (hydroc ortisone)) 1 appl topical TI D 28.4 grams 3RF R21 - Rash and oth er nonspecific ski n eruption Refilled linaclotide (Linze ss) 72 mcg PO QAM 30 caps 6RF K59.04 - Chronic i diopathic constipa tion EGD/COLONOSCOPY BIOPSY TODAY'S VISIT [place] #Khushboo Davis His upper abd bloating has resolved, unsure why. Per haps the Linzess needed more time to work. He is doing well moving his bowels. The only problem is the ongoing itching on his shins and he never received of cortisone cream so I will try res sending it. We will waiting for cardiology clearance to schedule the procedures but he now has been cleared. He says all of his test to come out good in his cardiac conditions are well controlled. Return office visit in 6 months and of course I will see him after the procedures as well. [facility] Medical History Nausea and vomiting Shortness of breath Anemia Asthma BPH (benign prostatic hyperplasia) Arthritis Back pain History of traumatic head injury Schizophrenia Depression Sleep apnea Elevated cholesterol HTN (hypertension) Surgical History History of surgery Hx of cataract extraction Hx of cystoscopy Hx of cholecystectomy History of gastric surgery History of esophagogastroduodenoscopy (EGD) H/O colonoscopy Family History Mother Cancer Father Prostate cancer Brother No problems noted. Sister Colon cancer Other Mental health disorder Social History Housing: Apartment Alcohol intake: never Patient Tobacco Use Status: Never used Tobacco e-Cigarette/Vaping Use: Never Used Second Hand Smoke Exposure: No service: No Current occupational status: disabled Cognitive needs: No Hearing needs: No Vision needs: No Review of Systems Const Denies fatigue, Denies fever(s), Denies night sweats, Denies poor appetite and Denies weight loss ENT Reports Normal hearing present, Denies dental pain, Denies dysphagia, Denies hearing loss, Denies mouth pain, Denies odynophagia, Denies throat swelling, Denies tongue swelling and Reports other (Dentition adequate) Card Reports no additional complaints Resp Reports no additional complaints GI Denies abdominal pain, Denies melena, Reports bloating, Denies hematochezia, Reports constipation, Denies GI cramping, Denies dysphagia, Denies excessive flatus, Denies early satiety, Denies heartburn, Denies diarrhea, Denies nausea, Denies odynophagia, Denies vomiting and Denies hematemesis Skin/Breast Denies pruritus, Denies lesions, Denies rash and Denies jaundice Neuro Reports Normal hearing present and Denies Abnormal speech present Endo Denies fatigue Aller/Immun Denies throat swelling and Denies tongue swelling Physical Exam Vital Signs: Last Vital Signs Pulse 55 04/06/23 08:35 BP 149/81 H 04/06/23 08:35 BMI result Body Mass Index 28.6 Const General: cooperative, no acute distress, well developed and well groomed Nutritional Appearance: average body habitus and well nourished Orientation/consciousness: oriented to person, oriented to place and oriented to time Limitations: language barrier HEENT Head: Yes normocephalic and Yes atraumatic Eyes General: appearance normal, both eyes and all related structures Pupils: Equal, round and reactive pupils present Neck Neck: Yes normal visual inspection and Yes no lymphadenopathy Thyroid: Thyroid normal Resp Effort & Inspection: normal respiratory effort and able to speak in complete sentences Auscultation: clear to auscultation bilaterally Cardio Rate: regular rate Rhythm: regular rhythm Heart sounds: Normal, physiologic split S2 sound present Peripheral pulses: radial pulses present and posterior tibial pulses present GI Inspection: No distended and No Abdominal panniculus present Palpation (GI): Soft to palpation, nontender, no guarding, not rigid and No h epatosplenomegaly present Percussion: Yes normal to percussion Auscultation: normal bowel sounds Rectal Exam - Male: Yes deferred Skin General skin exam: no rashes or lesions noted, turgor normal, skin not dry, no jaundice, No spider nevi and no striae Rashes: no rashes Nails: normal Neuro General: oriented to person, oriented to place and oriented to time Cranial nerves: Yes Equal, round and reactive pupils present and Yes Normal hearing present Speech: No Abnormal speech present Extrem General: Yes normal to inspection, No clubbing, No cyanosis and No edema Psych Appearance: grossly normal and well kempt Mental Status: mental status grossly normal Speech and movement: Normal speech and movement present Affect: normal affect Attitude: cooperative Thought process: Normal thought process present and not confabulating Thought content: Normal thought content present Insight: Fair insight present (Psych) Judgement: Fair judgement present (Psych) Assessment & Plan Assessment & Plan (1) Chronic idiopathic constipation: Code(s): K59.04 - Chronic idiopathic constipation Plan: EGD/COLONOSCOPY BIOPSY TODAY'S VISIT [place] #Khushboo Davis His upper abd bloating has resolved, unsure why. Per haps the Christines needed more time to work. He is doing well moving his bowels. The only problem is the ongoing itching on his shins and he never received of cortisone cream so I will try res sending it. We will waiting for cardiology clearance to schedule the procedures but he now has been cleared. He says all of his test to come out good in his cardiac conditions are well controlled. Return office visit in 6 months and of course I will see him after the procedures as well. (2) Rash and nonspecific skin eruption: Comment: on shins bilaterally Code(s): R21 - Rash and other nonspecific skin eruption Medications: Refilled hydrocortisone 1% (Anti-Itch (hydrocortisone)) 1 appl topical TID 28.4 grams 3RF R21 - Rash and other nonspecific skin eruption linaclotide (Linzess) 72 mcg PO QAM 30 caps 6RF K59.04 - Chronic idiopathic constipation Coding Level of Care Code Est Pt Level 3 (79913) Diagnoses Chronic idiopathic constipation K59.04 Rash and nonspecific skin eruption R21
[2023-04-06 08:35] VITALS: BP 149/81; PULSE 55; BMI 28.6
== END 2023-04-06 08:53 | disposition home or self-care (01) ==
PROVIDERS: PCP Nurse Practitioner Family; Visit Provider Nurse Practitioner
DX: K59.04 Chronic idiopathic constipation (principal); R21 Rash and other nonspecific skin eruption
CPT/HCPCS: 99213

== ENCOUNTER → 2023-04-06 08:30 | Outpatient (BNVA) | payer MEDICARE, OTHER, SELFPAY | PROVIDERS: PCP Nurse Practitioner Family; Visit Provider Nurse Practitioner | DX: K59.04 Chronic idiopathic constipation (principal); R21 Rash and other nonspecific skin eruption | CPT/HCPCS: 99212 ==

== ENCOUNTER 2023-04-27 08:41 | Outpatient (REF) | payer MEDICARE, OTHER, SELFPAY ==
[2023-04-27 08:52] LABS: MANUAL DIFF FLAG NO
[2023-04-27 09:25] LABS: Basophils Percent Auto 0.7 % (0-2); Eosinophils Absolute Auto 0.3 X10*3/uL (0.0-0.4); Eosinophils Percent Auto 4.5 % (0-4); Hematocrit 42.4 % (42.0-52.0); Hemoglobin 14.2 g/dl (14.0-18.0); Imm Gran Abs Auto 0.01 X10*3/uL (0.00-0.03); Imm Gran Pct Auto 0.2 % (0.0-0.4); Lymphocytes Absolute Auto 2.1 X10*3/uL (1.2-4.9); Lymphocytes Percent Auto 34.5 % (20-40); Mean Corpuscular HGB Conc 33.5 g/dl (31.0-36.0); Mean Corpuscular Hemoglobin 31.7 pg (27.0-33.0); Mean Corpuscular Volume 94.6 fL (80.0-98.0); Mean Platelet Volume 11.3 fL (9.4-12.4); Monocytes Absolute Auto 0.5 X10*3/uL (0.1-1.2); Monocytes Percent Auto 8.9 % (2-11); Neutrophils Absolute Auto 3.1 x10*3/uL (2.0-8.3); Neutrophils Percent Auto 51.2 % (45-73); Platelet Count 144 X10*3/uL (160-400); Red Blood Count 4.48 X10*6/uL (4.60-5.80); Red Cell Distribution Width 13.2 % (11.0-16.0); White Blood Count 6.1 X10*3/uL (4.8-10.8)
[2023-04-27 10:01] LABS: Alanine Aminotransferase 25 U/L (0-40); Albumin Level 4.3 g/dL (3.5-5.0); Alkaline Phosphatase 71 U/L (39-117); Anion Gap 10 (12-20); Aspartate Amino Transferase 34 U/L (5-37); Bilirubin Total 0.6 mg/dL (0.0-1.0); Blood Urea Nitrogen 12 mg/dL (9-16); Calcium 9.2 mg/dL (8.4-10.2); Carbon Dioxide 30 mmol/L (22-29); Chloride 106 mmol/L (96-108); Cholesterol 104 mg/dL (<200); Estimated Glomerular Filt Rate > 60; Glucose Fasting 109 mg/dL (60-99); HDL Cholesterol 42 mg/dL (>40); LDL Cholesterol Calculated 47 mg/dL (<100); Potassium 3.9 mmol/L (3.3-5.1); Sodium 142 mmol/L (135-145); Total Protein 6.7 g/dL (6.5-8.0); Triglycerides 77 mg/dL (<150)
== END 2023-04-27 08:42 | disposition home or self-care (01) ==
LOC: HO.LAB 08:41
PROVIDERS: PCP Nurse Practitioner Family; Visit Provider Nurse Practitioner Family
DX: Z13.0 Encounter for screening for diseases of the blood and blood-forming organs and certain disorders involving the immune mechanism (principal); E78.00 Pure hypercholesterolemia, unspecified; I10 Essential (primary) hypertension
CPT/HCPCS: 36415; 80053; 80061; 85025

== ENCOUNTER 2023-06-07 10:42 | Outpatient (AMB) | payer MEDICARE, OTHER, SELFPAY ==
[2023-06-07 10:43] VITALS: BP 130/82; PULSE 70; O2SAT 97; BMI 28.4
--- NOTE | 2023-06-07 10:43 | MHC.PC.OV ---
Vital Signs 06/07/23 10:43 Height 5 ft 9 in Weight 192 lb BMI 28.4 BP 130/82 Blood Pressure Location Lt brachial Position Sitting Pulse 70 Pulse Source Pulse Oximeter Pulse Oximetry (%) 97 Oxygen Delivery Method Room Air Intake Visit Reasons: 3 month f/u Fuel Pilot Engineer Required: Yes Accounts Payable Processor: Not Required per policy Accompanied by: Self / Same As Patient Allergies aspirin [ASPIRIN] Allergy (Severe, Verified 06/07/23 10:44) ANAPHYLAXIS ibuprofen [From MOTRIN] Allergy (Severe, Verified 06/07/23 10:44) ANAPHYLAXIS Penicillins Allergy (Severe, Verified 06/07/23 10:44) ANAPHYLAXIS asenapine [From SAPHRIS] Allergy (Intermediate, Verified 06/07/23 10:44) ITCHING influenza virus vaccine, specific [FLU VACCINE] Allergy (Intermediate, Verified 06/07/23 10:44) DIZZINESS/SOB/CP quetiapine [From SEROQUEL] Allergy (Intermediate, Verified 06/07/23 10:44) HTN morphine [MORPHINE] Allergy (Unknown, Verified 06/07/23 10:44) Unknown penicillin G Allergy (Unknown, Verified 06/07/23 10:44) Unknown ChlorproMAZINE Allergy (Unknown, Uncoded 06/07/23 10:44) Unknown Clindamycin HCl Allergy (Unknown, Uncoded 06/07/23 10:44) Unknown Medication List - Last Reconciled 06/07/23 by Frank Ochoa MD acetaminophen ER (Arthritis Pain Relief (acetaminophen) ER) 650 mg PO BID PRN albuterol 90 mcg/actuation 90 mcg inhalation Q6H PRN ascorbic acid (vitamin C) 500 mg PO DAILY atorvastatin 20 mg PO DAILY blood sugar diagnostic ([facility] G2 strips) test daily blood-glucose meter ([facility] G2) As directed chlorpromazine 100 mg orally 1 tab orally at 4pm and at bedtime; chlorpromazine 25 mg PO TID clonidine HCl 0.1 mg PO BEDTIME CPAP CPAP supplies CPAP (CPAP Machine/Device) As directed ferrous sulfate 325 mg PO DAILY fexofenadine (Allergy Relief (fexofenadine)) 180 mg PO DAILY fluticasone propionate 50 mcg/actuation 1 spray intranasal DAILY hydrocortisone 1% (Anti-Itch (hydrocortisone)) 1 appl topical TID isosorbide mononitrate ER 30 mg PO QAM linaclotide (Linzess) 72 mcg PO QAM metoprolol succinate ER 50 mg PO DAILY mirtazapine 30 mg PO BEDTIME nystatin 5 mL PO QID olanzapine (Zyprexa) 20 mg PO BEDTIME pantoprazole (Protonix) 20 mg PO DAILY peg 3350-electrolytes 236-22.74-6.74 -5.86 gram (Golytely) 240 mL PO Q10M 1 day polyvinyl alcohol 1.4% 1 drp ophthalmic (eye) QID prazosin 2 mg orally 1 cap QHS, take with 5mg dose to make 7mg; prazosin 5 mg PO BEDTIME sacubitril-valsartan 49-51 mg (Entresto) 1 tab PO BID sildenafil (Viagra) 50 mg PO DAILY PRN simethicone 125 mg PO BEDTIME PRN solifenacin (Vesicare) 5 mg PO DAILY trazodone 150 mg PO DAILY venlafaxine ER 150 mg PO DAILY Tobacco use date assessed: 02/20/23 Fall risk assessment: No Falls in past year Last assessed Fall Risk: 06/07/23 Dental Screening Dental Screen Date: 06/07/23 Did you have a dental visit in the last 12 months?: Yes Did you have a dental problem in the last 6 months where you did not have access to dental care?: No Was dental information given to patient?: Patient has dentist HPI 3 month f/u HPI Details asthma hypertension and irritable bowel disease; stable on rx; compliant [facility] Medical History Nausea and vomiting Shortness of breath Anemia Asthma BPH (benign prostatic hyperplasia) Arthritis Back pain History of traumatic head injury Schizophrenia Depression Sleep apnea Elevated cholesterol HTN (hypertension) Surgical History History of surgery Hx of cataract extraction Hx of cystoscopy Hx of cholecystectomy History of gastric surgery History of esophagogastroduodenoscopy (EGD) H/O colonoscopy Family History Mother Cancer Father Prostate cancer Brother No problems noted. Sister Colon cancer Other Mental health disorder Social History Housing: Apartment Alcohol intake: never Patient Tobacco Use Status: Never used Tobacco e-Cigarette/Vaping Use: Never Used Second Hand Smoke Exposure: No service: No Current occupational status: disabled Cognitive needs: No Hearing needs: No Vision needs: No Questionnaire PHQ-9 Over the last 2 weeks, how often have you been bothered by any of the following problems? 1. Little interest or pleasure in doing things: several days 2. Feeling down, depressed, or hopeless: several days 3. Trouble falling or staying asleep, or sleeping too much: not at all 4. Feeling tired or having little energy: not at all 5. Poor appetite or overeating: not at all 6. Feeling bad about yourself - or that you are a failure or have let yourself or your family down: not at all 7. Trouble concentrating on things, such as reading the newspaper or watching television: not at all 8. Moving or speaking so slowly that other people could have noticed. Or the opposite - being so fidgety or restless that you have been moving around a lot more than usual: not at all 9. Thoughts that you would be better off or of hurting yourself in some way: not at all Total score: 2 Depression Screening Interpretation: Negative Depression Screening Done: Yes Source: Developed by Drs. Sourav Dela Cruz, Camila Lau, Gerard Nuñez and colleagues, with an educational dc from [email or web address]. Thrive Questionnaire Date Thrive assessed: 06/07/23 I am a: Patient What is your living situation today?: I have a steady place to live Within the past 12 months, did the food you bought not last and you didn't have the money to get more?: Never true Within the past 12 months, did you worry whether your food would run out before you got money to buy more?: Never true Do you have trouble paying for medicines?: No Do you have trouble getting transportation to medical appointments?: No Do you have trouble paying your heating and electricity bill?: No Do you have trouble taking care of your child, family member or friend?: No Do you have trouble with day-to-day activities such as bathing, preparing meals, shopping, managing finances, etc.?: No Are you currently unemployed and looking for a job?: No Are you interested in more education?: No Please select the resources that you would like help with: None AUDIT C Alcohol Use Questionnaire (AUDIT-C) 1. How often do you have a drink containing alcohol?: Never 3. How often do you have six or more drinks on one occasion?: Never Total Score: 0 BENY-7 AMB Questionnaire BENY-7 Date BENY - 7 assessed: 06/07/23 Feeling nervous, anxious, or on edge: 0 = Not at all Not being able to stop or control worryin = Not at all Worrying too much about different things: 0 = Not at all Trouble relaxin = Not at all Being so restless that it is hard to sit still: 0 = Not at all Becoming easily annoyed or irritable: 0 = Not at all Feeling afraid as if something awful might happen: 0 = Not at all Total BENY-7 score (0-4 normal; 5-9 mild; 10-14 moderate; 15-21 severe): 0 Source: Developed by Drs. Sourav Dela Cruz, Camila Lau, Gerard Nuñez and colleagues, with an educational dc from [email or web address]. Review of Systems Const Denies chills, Denies headache(s) and Denies weight loss ENT Denies headache(s) Card Denies chest pain, Denies syncope, Denies irregular heart rhythm and Denies dyspnea Resp Denies chest congestion, Denies cough and Denies dyspnea GI Denies abdominal pain, Denies change in stool character, Denies nausea and Denies vomiting Musc Denies deformity and Denies joint swelling Neuro Denies syncope and Denies headache(s) Physical exam (Primary Care) Vital Signs: Last Vital Signs Pulse 70 06/07/23 10:43 BP 130/82 06/07/23 10:43 Pulse Ox 97 06/07/23 10:43 Oxygen Delivery Method Room Air 06/07/23 10:43 BMI result Body Mass Index 28.4 Tobacco/Smoking Status: Tobacco use Status Tobacco use date assessed 02/20/23 06/07/23 10:47 Patient Tobacco Use Status Never used Tobacco 06/07/23 10:47 e-Cigarette/Vaping Use Never Used 06/07/23 10:47 PHQ-9: PHQ-9 Score PHQ-9: Total score 2 06/07/23 10:58 Depression Screening Interpretation: Negative Thrive Assessment: Date of Thrive Assessment Date Thrive assessed 06/07/23 06/07/23 10:47 Const General: cooperative, comfortable, no acute distress and alert Neck Neck: Yes no lymphadenopathy Thyroid: Thyroid normal Resp Effort & Inspection: normal respiratory effort Auscultation: clear to auscultation bilaterally Percussion: percussion normal Cardio Jugular venous distension: no JVD Palpation: normal PMI Rate: regular rate Rhythm: regular rhythm Heart sounds: S1 normal heart sound present and S2 normal heart sound present GI Inspection: Yes normal to inspection Palpation (GI): No hepatosplenomegaly present Skin General skin exam: no rashes or lesions noted Extrem General: Yes no clubbing, cyanosis or edema Assessment and Plan Assessment & Plan (1) Asthma: Code(s): J45.909 - Unspecified asthma, uncomplicated Plan: stable; same rx (2) Elevated cholesterol: Code(s): E78.00 - Pure hypercholesterolemia, unspecified Plan: stable; same rx (3) HTN (hypertension): Code(s): I10 - Essential (primary) hypertension Plan: stable; same rx Orders: Orders XR lumbar spine 2-3V Today M54.9 - Dorsalgia, unspecified Medications: Refilled ascorbic acid (vitamin C) 500 mg PO DAILY 90 caps 3RF isosorbide mononitrate ER 30 mg PO QAM 90 tabs 3RF I20.9 - Angina pectoris, unspecified pantoprazole (Protonix) 20 mg PO DAILY 90 tabs 3RF R12 - Heartburn metoprolol succinate ER 50 mg PO DAILY 90 tabs 3RF I10 - Essential (primary) hypertension atorvastatin 20 mg PO DAILY 90 tabs 3RF E78.00 - Pure hypercholesterolemia, unspecified Coding Level of Care Code Est Pt Level 4 (88360) Diagnoses Asthma J45.909 Elevated cholesterol E78.00 HTN (hypertension) I10
== END 2023-06-07 11:05 | disposition home or self-care (01) ==
PROVIDERS: PCP Nurse Practitioner Family; Visit Provider Internal Medicine
DX: J45.909 Unspecified asthma, uncomplicated (principal); E78.00 Pure hypercholesterolemia, unspecified; I10 Essential (primary) hypertension
CPT/HCPCS: 99214

== ENCOUNTER 2023-06-07 11:12 | Outpatient (REF) | payer MEDICARE, SELFPAY ==
--- NOTE | ~2023-06-07 | XR_ITS ---
EXAMINATION: XR LUMBOSACRAL SPINE CLINICAL INFORMATION: Patient could not lay on left side, so right laterals were performed COMPARISON: January 30, 2017 TECHNIQUE: Three views of the lumbosacral spine. FINDINGS: Surgical clips in the upper abdomen. Mild levoscoliosis of the lumbar spine. Facet arthritis in the mid to lower lumbar spine. Straightening of the normal lumbar lordosis. Progression of advanced multilevel lumbar spondylosis with multilevel loss of disc space height and hypertrophic change most notable at L4-L5 and L5-S1. XR/XR lumbar spine 2-3V IMPRESSION: Progression of advanced multilevel lumbar spondylosis most notable at L4-L5 and L5-S1.
== END 2023-06-07 11:13 | disposition home or self-care (01) ==
LOC: HO.XRAY 11:12
PROVIDERS: PCP Internal Medicine; Visit Provider Internal Medicine
DX: M54.9 Dorsalgia, unspecified (principal)
CPT/HCPCS: 72100

== ENCOUNTER 2023-08-27 08:00 | Outpatient (REF) | payer MEDICARE, SELFPAY ==
[2023-08-27 08:48] LABS: Alanine Aminotransferase 28 U/L (0-40); Albumin Level 3.9 g/dL (3.5-5.0); Alkaline Phosphatase 82 U/L (39-117); Anion Gap 9 (12-20); Aspartate Amino Transferase 38 U/L (5-37); Bilirubin Total 0.7 mg/dL (0.0-1.0); Blood Urea Nitrogen 10 mg/dL (9-16); Calcium 8.6 mg/dL (8.4-10.2); Carbon Dioxide 31 mmol/L (22-29); Chloride 105 mmol/L (96-108); Cholesterol 110 mg/dL (<200); Estimated Glomerular Filt Rate > 60; Glucose Fasting 96 mg/dL (60-99); HDL Cholesterol 49 mg/dL (>40); LDL Cholesterol Calculated 50 mg/dL (<100); Potassium 3.5 mmol/L (3.3-5.1); Sodium 141 mmol/L (135-145); Total Protein 6.1 g/dL (6.5-8.0); Triglycerides 59 mg/dL (<150)
== END 2023-08-27 08:01 | disposition home or self-care (01) ==
LOC: HO.LAB 08:00
PROVIDERS: PCP Internal Medicine; Visit Provider Nurse Practitioner Family
DX: I10 Essential (primary) hypertension (principal); E78.00 Pure hypercholesterolemia, unspecified
CPT/HCPCS: 36415; 80053; 80061

== ENCOUNTER 2023-09-11 08:31 | Outpatient (AMB) | payer MEDICARE, SELFPAY ==
[2023-09-11 08:36] VITALS: BP 130/62; PULSE 49; O2SAT 97; BMI 28.8
--- NOTE | 2023-09-11 08:36 | A.OFFPC_ITS ---
Vital Signs 09/11/23 08:36 Height 5 ft 9 in Weight 195 lb BMI 28.8 BP 130/62 Blood Pressure Location Lt brachial Position Sitting Pulse 49 L Pulse Source Pulse Oximeter Pulse Oximetry (%) 97 Oxygen Delivery Method Room Air Intake Visit Reasons: 3 month f/u Intake Note: Patient is here to follow up on 3 months Asbestos Pipe Supervisor Required: Yes Asbestos Pipe Supervisor Language: Albanian Allergies aspirin [ASPIRIN] Allergy (Severe, Verified 09/11/23 08:37) ANAPHYLAXIS ibuprofen [From MOTRIN] Allergy (Severe, Verified 09/11/23 08:37) ANAPHYLAXIS Penicillins Allergy (Severe, Verified 09/11/23 08:37) ANAPHYLAXIS asenapine [From SAPHRIS] Allergy (Intermediate, Verified 09/11/23 08:37) ITCHING influenza virus vaccine, specific [FLU VACCINE] Allergy (Intermediate, Verified 09/11/23 08:37) DIZZINESS/SOB/CP quetiapine [From SEROQUEL] Allergy (Intermediate, Verified 09/11/23 08:37) HTN morphine [MORPHINE] Allergy (Unknown, Verified 09/11/23 08:37) Unknown penicillin G Allergy (Unknown, Verified 09/11/23 08:37) Unknown ChlorproMAZINE Allergy (Unknown, Uncoded 09/11/23 08:37) Unknown Clindamycin HCl Allergy (Unknown, Uncoded 09/11/23 08:37) Unknown Medication List - Last Reconciled 09/11/23 by Frank Ochoa MD acetaminophen ER (Arthritis Pain Relief (acetaminophen) ER) 650 mg PO BID PRN albuterol 90 mcg/actuation 90 mcg inhalation Q6H PRN ascorbic acid (vitamin C) 500 mg PO DAILY atorvastatin 20 mg PO DAILY blood sugar diagnostic ([employer] G2 strips) test daily blood-glucose meter ([employer] G2) As directed chlorpromazine 100 mg orally 1 tab orally at 4pm and at bedtime; chlorpromazine 25 mg PO TID clonidine HCl 0.1 mg PO BEDTIME CPAP CPAP supplies CPAP (CPAP Machine/Device) As directed ferrous sulfate 325 mg PO DAILY fexofenadine (Allergy Relief (fexofenadine)) 180 mg PO DAILY fluticasone propionate 50 mcg/actuation 1 spray intranasal DAILY hydrocortisone 1% (Anti-Itch (hydrocortisone)) 1 appl topical TID isosorbide mononitrate ER 30 mg PO QAM linaclotide (Linzess) 72 mcg PO QAM metoprolol succinate ER 50 mg PO DAILY mirtazapine 30 mg PO BEDTIME nystatin 5 mL PO QID olanzapine (Zyprexa) 20 mg PO BEDTIME pantoprazole (Protonix) 20 mg PO DAILY peg 3350-electrolytes 236-22.74-6.74 -5.86 gram (Golytely) 240 mL PO Q10M 1 day polyvinyl alcohol 1.4% 1 drp ophthalmic (eye) QID prazosin 2 mg orally 1 cap QHS, take with 5mg dose to make 7mg; prazosin 5 mg PO BEDTIME sacubitril-valsartan 49-51 mg (Entresto) 1 tab PO BID sildenafil (Viagra) 50 mg PO DAILY PRN simethicone 125 mg PO BEDTIME PRN solifenacin 5 mg PO DAILY trazodone 150 mg PO DAILY venlafaxine ER 150 mg PO DAILY Tobacco use date assessed: 09/11/23 Fall risk assessment: No Falls in past year Last assessed Fall Risk: 09/11/23 Dental Screening Dental Screen Date: 06/07/23 HPI 3 month f/u HPI Details hyperlipidemia on rx; doing well and compliant on rx PFSH Medical History Nausea and vomiting Shortness of breath Anemia Asthma BPH (benign prostatic hyperplasia) Arthritis Back pain History of traumatic head injury Schizophrenia Depression Sleep apnea Elevated cholesterol HTN (hypertension) Surgical History History of surgery Hx of cataract extraction Hx of cystoscopy Hx of cholecystectomy History of gastric surgery History of esophagogastroduodenoscopy (EGD) H/O colonoscopy Family History Mother Cancer Father Prostate cancer Brother No problems noted. Sister Colon cancer Other Mental health disorder Social History Housing: Apartment Alcohol intake: never Patient Tobacco Use Status: Never used Tobacco e-Cigarette/Vaping Use: Never Used Second Hand Smoke Exposure: No service: No Current occupational status: disabled Cognitive needs: No Hearing needs: No Vision needs: No Questionnaire Thrive Questionnaire Date Thrive assessed: 06/07/23 AUDIT C Alcohol Use Questionnaire (AUDIT-C) 1. How often do you have a drink containing alcohol?: Never 3. How often do you have six or more drinks on one occasion?: Never Total Score: 0 BENY-7 AMB Questionnaire BENY-7 Date BENY - 7 assessed: 06/07/23 Source: Developed by Drs. Sourav Dela Cruz, Camila Lau, Gerard Nuñez and colleagues, with an educational dc from [employer]. Review of Systems Const Denies chills, Denies headache(s) and Denies weight loss ENT Denies headache(s) Card Denies chest pain, Denies syncope, Denies irregular heart rhythm and Denies dyspnea Resp Denies chest congestion, Denies cough and Denies dyspnea GI Denies abdominal pain, Denies change in stool character, Denies nausea and Denies vomiting Musc Denies deformity and Denies joint swelling Neuro Denies syncope and Denies headache(s) Physical exam (Primary Care) Vital Signs: Last Vital Signs Pulse 49 L 09/11/23 08:36 BP 130/62 09/11/23 08:36 Pulse Ox 97 09/11/23 08:36 Oxygen Delivery Method Room Air 09/11/23 08:36 BMI result Body Mass Index 28.8 Tobacco/Smoking Status: Tobacco use Status Tobacco use date assessed 09/11/23 09/11/23 08:38 Patient Tobacco Use Status Never used Tobacco 09/11/23 08:38 e-Cigarette/Vaping Use Never Used 09/11/23 08:38 Thrive Assessment: Date of Thrive Assessment Date Thrive assessed 06/07/23 09/11/23 08:38 Const General: cooperative, comfortable, no acute distress and alert Neck Neck: Yes no lymphadenopathy Thyroid: Thyroid normal Resp Effort & Inspection: normal respiratory effort Auscultation: clear to auscultation bilaterally Percussion: percussion normal Cardio Jugular venous distension: no JVD Palpation: normal PMI Rate: regular rate Rhythm: regular rhythm Heart sounds: S1 normal heart sound present and S2 normal heart sound present GI Inspection: Yes normal to inspection Palpation (GI): No hepatosplenomegaly present Skin General skin exam: no rashes or lesions noted Extrem General: Yes no clubbing, cyanosis or edema Assessment and Plan Assessment & Plan (1) Hypercholesteremia: Code(s): E78.00 - Pure hypercholesterolemia, unspecified Plan: stable; same rx Orders: Orders Lipid Panel Today Z13.220 - Encounter for screening for lipoid disorders Glucose Fasting Today R73.9 - Hyperglycemia, unspecified Hemoglobin A1c Today R73.9 - Hyperglycemia, unspecified Thyroid Stimulating Hormone Today Z13.29 - Encounter for screening for other suspected endocrine disorder Coding Level of Care Code Est Pt Level 3 (90010) Diagnoses Hypercholesteremia E78.00
== END 2023-09-11 09:20 | disposition home or self-care (01) ==
PROVIDERS: PCP Nurse Practitioner Family; Visit Provider Internal Medicine
DX: E78.00 Pure hypercholesterolemia, unspecified (principal)
CPT/HCPCS: 99213

== ENCOUNTER 2023-09-11 09:26 | Outpatient (REF) | payer MEDICARE, SELFPAY ==
[2023-09-11 12:22] LABS: Thyroid Stimulating Hormone 1.91 uIU/mL (0.32-4.0)
== END 2023-09-11 09:27 | disposition home or self-care (01) ==
LOC: HO.LAB 09:26
PROVIDERS: PCP Internal Medicine; Visit Provider Internal Medicine
DX: R73.9 Hyperglycemia, unspecified (principal); Z13.29 Encounter for screening for other suspected endocrine disorder; Z13.220 Encounter for screening for lipoid disorders
CPT/HCPCS: 36415; 84443

== ENCOUNTER 2023-10-05 08:30 | Outpatient (AMB) | payer MEDICARE, SELFPAY ==
--- NOTE | 2023-10-05 08:30 | A.OFFVIS_ITS ---
Vital Signs 10/05/23 08:50 Height 5 ft 9 in Weight 199 lb 11.821 oz BMI 29.5 BP 125/75 Blood Pressure Location Rt brachial Position Sitting Pulse 85 Intake Visit Reasons: 6 month follow up CIC Intake Note: Bill returns to in office 6 months follow up of CIC. CC: Patient c/o acid reflux that is worst at night. He also reports feeling the need to have a BM but when he goes nothing comes out. He also c/o epigastric pain. Patient requesting more cream for the itching . [employer]eer [employer] Required: Yes Allergies aspirin [ASPIRIN] Allergy (Severe, Verified 10/05/23 09:00) ANAPHYLAXIS ibuprofen [From MOTRIN] Allergy (Severe, Verified 10/05/23 09:00) ANAPHYLAXIS Penicillins Allergy (Severe, Verified 10/05/23 09:00) ANAPHYLAXIS asenapine [From SAPHRIS] Allergy (Intermediate, Verified 10/05/23 09:00) ITCHING influenza virus vaccine, specific [FLU VACCINE] Allergy (Intermediate, Verified 10/05/23 09:00) DIZZINESS/SOB/CP quetiapine [From SEROQUEL] Allergy (Intermediate, Verified 10/05/23 09:00) HTN morphine [MORPHINE] Allergy (Unknown, Verified 10/05/23 09:00) Unknown penicillin G Allergy (Unknown, Verified 10/05/23 09:00) Unknown ChlorproMAZINE Allergy (Unknown, Uncoded 09/11/23 08:37) Unknown Clindamycin HCl Allergy (Unknown, Uncoded 09/11/23 08:37) Unknown HPI HPI 6 month follow up CIC: Details: Assessment & Plan (1) Chronic idiopathic constipation: Code(s): K59.04 - Chronic idiopathic constipation Plan: Sinhala #[facility] His upper abd bloating has resolved, unsure why. Per haps the Linzess needed more time to work. He is doing well moving his bowels. The only problem is the ongoing itching on his shins and he never received of cortisone cream so I will try res sending it. We will waiting for cardiology clearance to schedule the procedures but he now has been cleared. He says all of his test to come out good in his cardiac conditions are well controlled. Return office visit in 6 months and of course I will see him after the procedures as well. (2) Rash and nonspecific skin eruption: Comment: on shins bilaterally Code(s): R21 - Rash and other nonspecific skin eruption Medications: Refilled hydrocortisone 1% (Anti-Itch (hydrocortisone)) 1 appl topical TID 28.4 grams 3RF R21 - Rash and other nonspecific skin eruption linaclotide (Linzess) 72 mcg PO QAM 30 caps 6RF K59.04 - Chronic idiopathic constipation CORRESPONDENCE On 06/29/23 @ 09:54 Janna Browning Wrote To Janna Browning our office has made several attempts to get ahold of pt 2calls and a ltr was mailed, with no response from pt. removing from list. On 06/07/23 @ 10:59 Janna Browning Wrote To Janna Browning Janna Browning completed item. On 06/07/23 @ 09:06 Janna Browning Wrote To Janna Browning pt called to scheduled, lvm to cb. On 05/25/23 @ 10:27 Janna Browning Wrote To Janna Browning lvm, ltr mailed On 05/02/23 @ 14:12 Janna Browning Wrote To Janna Browning ty, added to booking note, contacting pt to scheduled. Janna Browning completed item. COLONOSCOPY BIOPSY TODAY'S VISIT Sinhala #[id number] He is having more burning in his chest despite taking his protonix qam. I sounds like he is having a fade later in the day. He has not been getting his Linzess and is having bloating and CIC, so I will have my staff call and look in to this. I also will add famotidine qhs to his pantoprazole he also has hemorrhoid cream. Walking him down to schedulers for colonoscopy ROV 4 weeks. [facility]MERLY [facility] Medical History (Updated 10/05/23 @ 08:32 by ANN Banda) Pre-op examination COVID-19 Nausea and vomiting Shortness of breath Anemia Asthma BPH (benign prostatic hyperplasia) Arthritis Back pain History of traumatic head injury Schizophrenia Depression Sleep apnea Elevated cholesterol HTN (hypertension) Surgical History History of surgery Hx of cataract extraction Hx of cystoscopy Hx of cholecystectomy History of gastric surgery History of esophagogastroduodenoscopy (EGD) H/O colonoscopy Family History Mother Cancer Father Prostate cancer Brother No problems noted. Sister Colon cancer Other Mental health disorder Social History Housing: Apartment Alcohol intake: never Patient Tobacco Use Status: Never used Tobacco e-Cigarette/Vaping Use: Never Used Second Hand Smoke Exposure: No service: No Current occupational status: disabled Cognitive needs: No Hearing needs: No Vision needs: No Review of Systems Const Denies fatigue, Denies fever(s), Denies night sweats, Denies poor appetite and Denies weight loss ENT Reports Normal hearing present, Denies dental pain, Denies dysphagia, Denies hearing loss, Denies mouth pain, Denies odynophagia, Denies throat swelling, D enies tongue swelling and Reports other (Dentition adequate) Card Reports no additional complaints Resp Reports no additional complaints GI Details: Denies abdominal pain, Denies melena, Reports bloating, Denies hematochezia, Reports constipation, Denies GI cramping, Denies dysphagia, Denies excessive flatus, Denies early satiety, Reports heartburn, Denies diarrhea, Denies nausea, Denies odynophagia, Denies vomiting and Denies hematemesis Skin/Breast Denies pruritus, Denies lesions, Denies rash and Denies jaundice Neuro Reports Normal hearing present and Denies Abnormal speech present Endo Denies fatigue Aller/Immun Denies throat swelling and Denies tongue swelling Physical Exam Vital Signs: Last Vital Signs Pulse 85 10/05/23 08:50 BP 125/75 10/05/23 08:50 BMI result Body Mass Index 29.5 Const General: cooperative, no acute distress, well developed and well groomed Nutritional Appearance: well nourished and overweight Orientation/consciousness: oriented to person, oriented to place and oriented to time Limitations: language barrier HEENT Head: Yes normocephalic and Yes atraumatic Eyes General: appearance normal, both eyes and all related structures Pupils: Equal, round and reactive pupils present Neck Neck: Yes normal visual inspection and Yes no lymphadenopathy Thyroid: Thyroid normal Resp Effort & Inspection: normal respiratory effort and able to speak in complete sentences Auscultation: clear to auscultation bilaterally Cardio Rate: regular rate Rhythm: regular rhythm Heart sounds: Normal, physiologic split S2 sound present Peripheral pulses: radial pulses present and posterior tibial pulses present GI Inspection: No distended and No Abdominal panniculus present Palpation (GI): Soft to palpation, nontender, no guarding, not rigid and No hepatosplenomegaly present Percussion: Yes normal to percussion Auscultation: normal bowel sounds Rectal Exam - Male: Yes deferred Skin General skin exam: no rashes or lesions noted, turgor normal, skin not dry, no jaundice, No spider nevi and no striae Rashes: no rashes Nails: normal Neuro General: oriented to person, oriented to place and oriented to time Cranial nerves: Yes Equal, round and reactive pupils present and Yes Normal hearing present Speech: No Abnormal speech present Extrem General: Yes normal to inspection, No clubbing, No cyanosis and No edema Psych Appearance: grossly normal and well kempt Mental Status: mental status grossly normal Speech and movement: Normal speech and movement present Affect: normal affect Attitude: cooperative Thought process: Normal thought process present and not confabulating Thought content: Normal thought content present Insight: Limited insight present (Psych) Judgement: Limited judgement present (Psych) Assessment & Plan Assessment & Plan (1) Chronic idiopathic constipation: Code(s): K59.04 - Chronic idiopathic constipation Category: Medical (2) Family history of colon cancer: Comment: sister in 50's Code(s): Z80.0 - Family history of malignant neoplasm of digestive organs Category: Medical (3) Nausea and vomiting: Code(s): R11.2 - Nausea with vomiting, unspecified Category: Medical Plan Sinhala #[id number] He is having more burning in his chest despite taking his protonix qam. I sounds like he is having a fade later in the day. He has not been getting his Linzess and is having bloating and CIC, so I will have my staff call and look in to this. I also will add famotidine qhs to his pantoprazole he also has hemorrhoid cream. Walking him down to schedulers for colonoscopy ROV 4 weeks. Medications: New famotidine (Pepcid) 40 mg PO BEDTIME 30 tabs 6RF Refilled linaclotide (Linzess) 72 mcg PO QAM 30 caps 6RF K59.04 - Chronic idiopathic constipation Coding Level of Care Code Est Pt Level 3 (69844) Diagnoses Chronic idiopathic constipation K59.04 Family history of colon cancer Z80.0 Nausea and vomiting R11.2
[2023-10-05 08:50] VITALS: BP 125/75; PULSE 85; BMI 29.5
== END 2023-10-05 09:40 | disposition home or self-care (01) ==
PROVIDERS: PCP Internal Medicine; Visit Provider Nurse Practitioner
DX: K59.04 Chronic idiopathic constipation (principal); Z80.0 Family history of malignant neoplasm of digestive organs; R11.2 Nausea with vomiting, unspecified
CPT/HCPCS: 99213

== ENCOUNTER → 2023-10-05 08:30 | Outpatient (BNVA) | payer MEDICARE, SELFPAY | PROVIDERS: PCP Internal Medicine; Visit Provider Nurse Practitioner | DX: K59.04 Chronic idiopathic constipation (principal); R11.2 Nausea with vomiting, unspecified; Z80.0 Family history of malignant neoplasm of digestive organs; Z79.899 Other long term (current) drug therapy | CPT/HCPCS: 99212 ==

== ENCOUNTER 2023-11-09 11:52 | Outpatient (AMB) | payer MEDICARE, SELFPAY ==
--- NOTE | 2023-11-09 12:14 | A.OFFVIS_ITS ---
Vital Signs 11/09/23 12:35 Height 5 ft 9 in Weight 196 lb 3.382 oz BMI 29.0 BP 154/93 H Blood Pressure Location Lt brachial Position Sitting Pulse 65 Intake Visit Reasons: 4 week follow up Intake Note: Bill presents in the office as a 4 week follow up. CC: He states that he is not having any concerns today - he feels much better than he did from his last visit. Exit Booth Agent Required: Yes Exit Booth Agent Name: Miguel [id number] Allergies aspirin [ASPIRIN] Allergy (Severe, Verified 11/09/23 12:38) ANAPHYLAXIS ibuprofen [From MOTRIN] Allergy (Severe, Verified 11/09/23 12:38) ANAPHYLAXIS Penicillins Allergy (Severe, Verified 11/09/23 12:38) ANAPHYLAXIS asenapine [From SAPHRIS] Allergy (Intermediate, Verified 11/09/23 12:38) ITCHING influenza virus vaccine, specific [FLU VACCINE] Allergy (Intermediate, Verified 11/09/23 12:38) DIZZINESS/SOB/CP quetiapine [From SEROQUEL] Allergy (Intermediate, Verified 11/09/23 12:38) HTN morphine [MORPHINE] Allergy (Unknown, Verified 11/09/23 12:38) Unknown penicillin G Allergy (Unknown, Verified 11/09/23 12:38) Unknown ChlorproMAZINE Allergy (Unknown, Uncoded 11/09/23 12:38) Unknown Clindamycin HCl Allergy (Unknown, Uncoded 11/09/23 12:38) Unknown HPI HPI 4 week follow up: Details: Assessment & Plan (1) Chronic idiopathic constipation: Code(s): K59.04 - Chronic idiopathic constipation Category: Medical (2) Family history of colon cancer: Comment: sister in 50's Code(s): Z80.0 - Family history of malignant neoplasm of digestive organs Category: Medical (3) Nausea and vomiting: Code(s): R11.2 - Nausea with vomiting, unspecified Category: Medical Plan Polish #[id number] He is having more burning in his chest despite taking his protonix qam. I sounds like he is having a fade later in the day. He has not been getting his Linzess and is having bloating and CIC, so I will have my staff call and look in to this. I also will add famotidine qhs to his pantoprazole he also has hemorrhoid cream. Walking him down to schedulers for colonoscopy ROV 4 weeks. Medications: New famotidine (Pepcid) 40 mg PO BEDTIME 30 tabs 6RF Refilled linaclotide (Linzess) 72 mcg PO QAM 30 caps 6RF K59.04 - Chronic idiopathic constipation COLONOSCOPY Scheduled for 03/31/2024 BIOPSY CORRESPONDENCE On 10/09/23 @ 09:08 Jenn aVlle Wrote To ÁngelSeptember Per pharmacist they can't run it until they receive Rx for Pantoprazole BID. On 10/05/23 @ 16:46 Jaz Neal Wrote To Jenn Valle V see if we can get his pantoprazole for twice a day dosing and if this is better. On 10/05/23 @ 15:45 Hetal Morales Wrote To ÁngelSeptember (2) Nimesh patients - LVM on MA line stating that his pepcid has a copay of $30 and she states this is too expensive and it is not working for him. She wants to know if there is something else that can sent that would be a better alternative for patient. Her phone number is TODAY'S VISIT Polish #[phone] With the addition of bid pantoprazole, he is now doing well! We were not able to get the famotidine. Now with the LInzess he is satisfied with his GI regimen. He is aware of his colonoscopy date. He already has an appt to see me after the colonoscopy He will call if he needs me prior to then. [facility] Medical History Pre-op examination COVID-19 Nausea and vomiting Shortness of breath Anemia Asthma BPH (benign prostatic hyperplasia) Arthritis Back pain History of traumatic head injury Schizophrenia Depression Sleep apnea Elevated cholesterol HTN (hypertension) Surgical History History of surgery Hx of cataract extraction Hx of cystoscopy Hx of cholecystectomy History of gastric surgery History of esophagogastroduodenoscopy (EGD) H/O colonoscopy Family History Mother Cancer Father Prostate cancer Brother No problems noted. Sister Colon cancer Other Mental health disorder Social History Housing: Apartment Alcohol intake: never Patient Tobacco Use Status: Never used Tobacco e-Cigarette/Vaping Use: Never Used Second Hand Smoke Exposure: No service: No Current occupational status: disabled Cognitive needs: No Hearing needs: No Vision needs: No Review of Systems Const Denies fatigue, Denies fever(s), Denies night sweats, Denies poor appetite and Denies weight loss ENT Reports Normal hearing present, Denies dental pain, Denies dysphagia, Denies hearing loss, Denies mouth pain, Denies odynophagia, Denies throat swelling, Denies tongue swelling and Reports other (Dentition adequate) Card Reports no additional complaints Resp Reports no additional complaints GI Details: Denies abdominal pain, Denies melena, Denies bloating, Denies hematochezia, Reports constipation, Denies GI cramping, Denies dysphagia, Denies excessive flatus, Denies early satiety, Reports heartburn, Denies diarrhea, Denies nausea, Denies odynophagia, Denies vomiting and Denies hematemesis Skin/Breast Denies pruritus, Denies lesions, Denies rash and Denies jaundice Neuro Reports Normal hearing present and Denies Abnormal speech present Endo Denies fatigue Aller/Immun Denies throat swelling and Denies tongue swelling Physical Exam Vital Signs: Last Vital Signs Pulse 65 11/09/23 12:35 BP 154/93 H 11/09/23 12:35 BMI result Body Mass Index 29.0 Const General: cooperative, no acute distress, well developed and well groomed Nutritional Appearance: well nourished and overweight Orientation/consciousness: oriented to person, oriented to place and oriented to time Limitations: language barrier HEENT Head: Yes normocephalic and Yes atraumatic Eyes General: appearance normal, both eyes and all related structures Pupils: Equal, round and reactive pupils present Neck Neck: Yes normal visual inspection and Yes no lymphadenopathy Thyroid: Thyroid normal Resp Effort & Inspection: normal respiratory effort and able to speak in complete sentences Auscultation: clear to auscultation bilaterally Cardio Rate: regular rate Rhythm: regular rhythm Heart sounds: Normal, physiologic split S2 sound present Peripheral pulses: radial pulses present and posterior tibial pulses present GI Inspection: No distended and No Abdominal panniculus present Palpation (GI): Soft to palpation, nontender, no guarding, not rigid and No hepatosplenomegaly present Percussion: Yes normal to percussion Auscultation: normal bowel sounds Rectal Exam - Male: Yes deferred Skin General skin exam: no rashes or lesions noted, turgor normal, skin not dry, no jaundice, No spider nevi and no striae Rashes: no rashes Nails: normal Neuro General: oriented to person, oriented to place and oriented to time Cranial nerves: Yes Equal, round and reactive pupils present and Yes Normal hearing present Speech: No Abnormal speech present Extrem General: Yes normal to inspection, No clubbing, No cyanosis and No edema Psych Appearance: grossly normal and well kempt Mental Status: mental status grossly normal Speech and movement: Normal speech and movement present Affect: normal affect Attitude: cooperative Thought process: Normal thought process present and not confabulating Thought content: Normal thought content present Insight: Fair insight present (Psych) and Limited insight present (Psych) Judgement: Fair judgement present (Psych) and Limited judgement present (Psych) Assessment & Plan Assessment & Plan (1) Nausea and vomiting: Code(s): R11.2 - Nausea with vomiting, unspecified Category: Medical (2) Chronic idiopathic constipation: Code(s): K59.04 - Chronic idiopathic constipation Category: Medical Plan Polish #[id number] With the addition of bid pantoprazole, he is now doing well! We were not able to get the famotidine. Now with the LInzess he is satisfied with his GI regimen. He is aware of his colonoscopy date. He already has an appt to see me after the colonoscopy He will call if he needs me prior to then. Coding Level of Care Code Est Pt Level 3 (99764) Diagnoses Nausea and vomiting R11.2 Chronic idiopathic constipation K59.04
[2023-11-09 12:35] VITALS: BP 154/93; PULSE 65; BMI 29.0
== END 2023-11-09 12:50 | disposition home or self-care (01) ==
PROVIDERS: PCP Internal Medicine; Visit Provider Nurse Practitioner
DX: R11.2 Nausea with vomiting, unspecified (principal); K59.04 Chronic idiopathic constipation
CPT/HCPCS: 99213

== ENCOUNTER → 2023-11-09 11:52 | Outpatient (BNVA) | payer MEDICARE, SELFPAY | PROVIDERS: PCP Internal Medicine; Visit Provider Nurse Practitioner | DX: K59.04 Chronic idiopathic constipation (principal); R11.2 Nausea with vomiting, unspecified | CPT/HCPCS: 99212 ==

== ENCOUNTER 2023-12-11 09:16 | Outpatient (AMB) | payer MEDICARE, SELFPAY ==
[2023-12-11 09:27] VITALS: BP 120/60; PULSE 66; O2SAT 98; BMI 28.9
--- NOTE | 2023-12-11 09:27 | A.OFFPC_ITS ---
Vital Signs 12/11/23 09:27 Height 5 ft 9 in Weight 196 lb BMI 28.9 BP 120/60 Blood Pressure Location Lt brachial Position Sitting Pulse 66 Pulse Source Pulse Oximeter Pulse Oximetry (%) 98 Oxygen Delivery Method Room Air Intake Visit Reasons: 3 Month F/U Lining Cementer Required: Yes Lining Cementer Name: [email or web address]) Technology Instructor: Not Required per policy Accompanied by: Self / Same As Patient Allergies aspirin [ASPIRIN] Allergy (Severe, Verified 12/11/23 09:28) ANAPHYLAXIS ibuprofen [From MOTRIN] Allergy (Severe, Verified 12/11/23 09:28) ANAPHYLAXIS Penicillins Allergy (Severe, Verified 12/11/23 09:28) ANAPHYLAXIS asenapine [From SAPHRIS] Allergy (Intermediate, Verified 12/11/23 09:28) ITCHING influenza virus vaccine, specific [FLU VACCINE] Allergy (Intermediate, Verified 12/11/23 09:28) DIZZINESS/SOB/CP quetiapine [From SEROQUEL] Allergy (Intermediate, Verified 12/11/23 09:28) HTN morphine [MORPHINE] Allergy (Unknown, Verified 12/11/23 09:28) Unknown penicillin G Allergy (Unknown, Verified 12/11/23 09:28) Unknown ChlorproMAZINE Allergy (Unknown, Uncoded 12/11/23 09:28) Unknown Clindamycin HCl Allergy (Unknown, Uncoded 12/11/23 09:28) Unknown Medication List - Last Reconciled 12/11/23 by Frank Ochoa MD acetaminophen ER (Arthritis Pain Relief (acetaminophen) ER) 650 mg PO BID PRN albuterol 90 mcg/actuation 90 mcg inhalation Q6H PRN ascorbic acid (vitamin C) (Vitamin C) 500 mg PO DAILY atorvastatin 20 mg PO DAILY blood sugar diagnostic (HOTEL Top-Level Domain G2 strips) test daily blood-glucose meter (HOTEL Top-Level Domain G2) As directed brexpiprazole (Rexulti) 1 mg PO DAILY chlorpromazine 100 mg orally 1 tab orally at 4pm and at bedtime; chlorpromazine 25 mg PO TID CPAP CPAP supplies CPAP (CPAP Machine/Device) As directed famotidine (Pepcid) 40 mg PO BEDTIME ferrous sulfate 325 mg PO DAILY fexofenadine (Allergy Relief (fexofenadine)) 180 mg PO DAILY fluticasone propionate 50 mcg/actuation 1 spray intranasal DAILY hydroxyzine HCl 25 mg PO BID PRN linaclotide (Linzess) 72 mcg PO QAM metoprolol succinate ER 50 mg PO DAILY mirtazapine 30 mg PO BEDTIME olanzapine (Zyprexa) 20 mg PO BEDTIME pantoprazole (Protonix) 20 mg PO BID peg 3350-electrolytes 236-22.74-6.74 -5.86 gram (Golytely) 240 mL PO Q10M 1 day polyvinyl alcohol 1.4% 1 drp ophthalmic (eye) QID prazosin 5 mg PO BEDTIME sacubitril-valsartan 49-51 mg (Entresto) 1 tab PO BID solifenacin 5 mg PO DAILY trazodone 150 mg PO DAILY venlafaxine ER 150 mg PO DAILY Tobacco use date assessed: 09/11/23 Fall risk assessment: No Falls in past year Last assessed Fall Risk: 12/11/23 Dental Screening Dental Screen Date: 06/07/23 HPI 3 Month F/U HPI Details HTN ANAYA and schizophrenia; sees psych and doing well; uses CPAP regul jack PFS Medical History Pre-op examination COVID-19 Nausea and vomiting Shortness of breath Anemia Asthma BPH (benign prostatic hyperplasia) Arthritis Back pain History of traumatic head injury Schizophrenia Depression Sleep apnea Elevated cholesterol HTN (hypertension) Surgical History History of surgery Hx of cataract extraction Hx of cystoscopy Hx of cholecystectomy History of gastric surgery History of esophagogastroduodenoscopy (EGD) H/O colonoscopy Family History Mother Cancer Father Prostate cancer Brother No problems noted. Sister Colon cancer Other Mental health disorder Social History Housing: Apartment Alcohol intake: never Patient Tobacco Use Status: Never used Tobacco e-Cigarette/Vaping Use: Never Used Second Hand Smoke Exposure: No service: No Current occupational status: disabled Cognitive needs: No Hearing needs: No Vision needs: No Questionnaire Thrive Questionnaire Date Thrive assessed: 06/07/23 BENY-7 AMB Questionnaire BENY-7 Date BENY - 7 assessed: 06/07/23 Source: Developed by Drs. Sourav Dela Cruz, Camila Lau, Gerard Nuñez and colleagues, with an educational dc from [employer]. Review of Systems Const Denies chills, Denies headache(s) and Denies weight loss ENT Denies headache(s) Card Denies chest pain, Denies syncope, Denies irregular heart rhythm and Denies dyspnea Resp Denies chest congestion, Denies cough and Denies dyspnea GI Denies abdominal pain, Denies change in stool character, Denies nausea and Denies vomiting Musc Denies deformity and Denies joint swelling Neuro Denies syncope and Denies headache(s) Physical exam (Primary Care) Vital Signs: Last Vital Signs Pulse 66 12/11/23 09:27 BP 120/60 12/11/23 09:27 Pulse Ox 98 12/11/23 09:27 Oxygen Delivery Method Room Air 12/11/23 09:27 BMI result Body Mass Index 28.9 Tobacco/Smoking Status: Tobacco use Status Tobacco use date assessed 09/11/23 12/11/23 09:37 Patient Tobacco Use Status Never used Tobacco 12/11/23 09:37 e-Cigarette/Vaping Use Never Used 12/11/23 09:37 Thrive Assessment: Date of Thrive Assessment Date Thrive assessed 06/07/23 12/11/23 09:37 Const General: cooperative, comfortable, no acute distress and alert Neck Neck: Yes no lymphadenopathy Thyroid: Thyroid normal Resp Effort & Inspection: normal respiratory effort Auscultation: clear to auscultation bilaterally Percussion: percussion normal Cardio Jugular venous distension: no JVD Palpation: normal PMI Rate: regular rate Rhythm: regular rhythm Heart sounds: S1 normal heart sound present and S2 normal heart sound present GI Inspection: Yes normal to inspection Palpation (GI): No hepatosplenomegaly present Skin General skin exam: no rashes or lesions noted Extrem General: Yes no clubbing, cyanosis or edema Assessment and Plan Assessment & Plan (1) HTN (hypertension): Code(s): I10 - Essential (primary) hypertension Plan: stable; same rx (2) Schizophrenia: Code(s): F20.9 - Schizophrenia, unspecified Plan: stable; per psych (3) Sleep apnea: Comment: uses CPAP Code(s): G47.30 - Sleep apnea, unspecified Plan: cont rx Coding Level of Care Code Est Pt Level 4 (14481) Diagnoses HTN (hypertension) I10 Schizophrenia F20.9 Sleep apnea G47.30
== END 2023-12-11 09:43 | disposition home or self-care (01) ==
PROVIDERS: PCP Internal Medicine; Visit Provider Internal Medicine
DX: I10 Essential (primary) hypertension (principal); F20.9 Schizophrenia, unspecified; G47.30 Sleep apnea, unspecified
CPT/HCPCS: 99214

== ENCOUNTER 2024-01-04 08:14 | Emergency (ER) | payer MEDICARE, SELFPAY ==
--- NOTE | ~2024-01-04 | CT_ITS ---
EXAMINATION: CT ABDOMEN AND PELVIS WITHOUT CONTRAST CLINICAL INFORMATION: Left flank pain. COMPARISON: 11/17/2012 TECHNIQUE: Multidetector volumetric imaging was performed from the superior aspect of the liver through the pubic symphysis. Sagittal and coronal reformatted images were obtained on the technologist's workstation. This CT examination was performed using dose optimization techniques as appropriate, variously including the following: *Automated exposure control *Adjustment of mA and/or kV according to patient size (this includes techniques or standardized protocols for targeted exams where dose is matched to indication/reason for exam; i.e. extremities or head) *Use of iterative reconstruction technique DLP: 539 mGy-cm FINDINGS: LUNG BASES: No pleural or pericardial effusion. Small hiatal hernia. LIVER, GALLBLADDER, AND BILIARY TREE: The noncontrast liver is unremarkable. No biliary ductal dilatation is present. The gallbladder is surgically absent. PANCREAS: Fatty infiltration. SPLEEN: Not enlarged. ADRENAL GLANDS: No adrenal mass. KIDNEYS AND URETERS: Mild fullness of the right renal collecting system. No left hydronephrosis. No obstructing calculus is identified. No perinephric fluid collection. BLADDER: Underdistended. No bladder calculus. GASTROINTESTINAL TRACT: No small bowel obstruction. The appendix is within normal limits. ABDOMINAL WALL: No significant hernia is appreciated. LYMPH NODES: No bulky lymphadenopathy. VASCULAR: Multiple caliber abdominal aorta. PELVIC VISCERA: Unremarkable. OSSEOUS STRUCTURES: No destructive bone lesions. CT/CT abdomen pelvis wo IV con IMPRESSION: Mild fullness of the right renal collecting system. No obstructing calculus.
[2024-01-04 08:19] VITALS: BP 148/93; PULSE 80; RESP 16; TEMP 36.1; O2SAT 96; BMI 32.7
[2024-01-04 08:33] LABS: MANUAL DIFF FLAG NO
[2024-01-04 08:35] LABS: Basophils Absolute Auto 0.1 X10*3/uL (0.0-0.2); Basophils Percent Auto 0.6 % (0-2); Eosinophils Absolute Auto 0.3 X10*3/uL (0.0-0.4); Eosinophils Percent Auto 3.1 % (0-4); Hematocrit 40.8 % (42.0-52.0); Imm Gran Abs Auto 0.03 X10*3/uL (0.00-0.03); Imm Gran Pct Auto 0.4 % (0.0-0.4); Lymphocytes Absolute Auto 1.4 X10*3/uL (1.2-4.9); Lymphocytes Percent Auto 17.2 % (20-40); Mean Corpuscular HGB Conc 34.3 g/dl (31.0-36.0); Mean Corpuscular Hemoglobin 32.6 pg (27.0-33.0); Mean Corpuscular Volume 95.1 fL (80.0-98.0); Mean Platelet Volume 10.5 fL (9.4-12.4); Monocytes Absolute Auto 0.8 X10*3/uL (0.1-1.2); Monocytes Percent Auto 9.3 % (2-11); Neutrophils Absolute Auto 5.8 x10*3/uL (2.0-8.3); Neutrophils Percent Auto 69.4 % (45-73); Platelet Count 145 X10*3/uL (160-400); Red Blood Count 4.29 X10*6/uL (4.60-5.80); Red Cell Distribution Width 13.2 % (11.0-16.0); White Blood Count 8.3 X10*3/uL (4.8-10.8)
[2024-01-04 08:42] LABS: Appearance Urine Clear; Color Urine Yellow; Glucose Urine UA Negative (Negative); Leukocyte Esterase Urine Negative (Negative); Nitrite Urine Negative (Negative); PH 5.5 (5.0-9.0); Specific Gravity - Urine <= 1.005 (1.005-1.025); Urine Blood Negative (Negative); Urine Ketones Negative (Negative); Urine Protein Negative (Neg-Trace)
[2024-01-04 08:55] LABS: Alanine Aminotransferase 18 U/L (0-40); Alkaline Phosphatase 81 U/L (39-117); Anion Gap 10 (12-20); Aspartate Amino Transferase 23 U/L (5-37); Bilirubin Total 0.8 mg/dL (0.0-1.0); Blood Urea Nitrogen 9 mg/dL (9-16); Calcium 9.4 mg/dL (8.4-10.2); Carbon Dioxide 29 mmol/L (22-29); Chloride 105 mmol/L (96-108); Creatinine Clr Calc Pharmacy 65.1; Estimated Glomerular Filt Rate > 60; Glucose Random 93 mg/dL (60-115); Sodium 140 mmol/L (135-145); Total Protein 6.4 g/dL (6.5-8.0)
--- NOTE | 2024-01-04 10:18 | ED.MALEGU ---
HPI - Male Genitourinary General Chief complaint: Urogenital-Male Stated complaint: groin pain Time Seen by Provider: 01/04/24 09:15 History of Present Illness HPI Narrative: Patient complains of discomfort with urination for 1-2 weeks, there is a burning sensation, no fever no vomiting He also complains of some back pain in the middle and on the left side worse with movement, pain does radiate towards the groin area He denies any incontinence no change to bowel or bladder he is eating and drinking normally and has no significant abdominal pain Denies headache neck pain, no chest pain He did have some diarrhea yesterday but today it is all normal, no nausea or vomiting Related Data Home Medications ?Medication ?Instructions ?Recorded ?Confirmed chlorpromazine 100 mg tablet 100 mg PO .COMPLEX 08/10/22 12/11/23 olanzapine 20 mg tablet (Zyprexa) 20 mg PO BEDTIME 08/10/22 12/11/23 prazosin 5 mg capsule 5 mg PO BEDTIME 08/10/22 12/11/23 trazodone 150 mg tablet 150 mg PO DAILY 08/10/22 12/11/23 venlafaxine 150 mg 150 mg PO DAILY 08/10/22 12/11/23 capsule,extended release 24 hr albuterol 90 mcg/actuation aerosol 90 mcg inhalation Q6H PRN 09/25/22 12/11/23 inhaler polyvinyl alcohol 1.4 % eye drops 1 drp ophthalmic (eye) QID 02/20/23 12/11/23 chlorpromazine 25 mg tablet 25 mg PO TID 04/06/23 12/11/23 mirtazapine 30 mg tablet 30 mg PO BEDTIME 04/06/23 12/11/23 brexpiprazole 1 mg tablet (Rexulti) 1 mg PO DAILY 10/05/23 12/11/23 hydroxyzine HCl 25 mg tablet 25 mg PO BID PRN 10/05/23 12/11/23 ascorbic acid (vitamin C) 500 mg 500 mg PO DAILY 11/09/23 12/11/23 tablet (Vitamin C) Previous Rx's ?Medication ?Instructions ?Recorded acetaminophen 650 mg 650 mg PO BID PRN pain #180 tabs 09/25/22 tablet,extended release (Arthritis Pain Relief (acetaminophen) ER) blood sugar diagnostic ([facility] #50 ea 10/27/22 G2 strips) blood-glucose meter (Totsy G2) #1 ea 10/27/22 CPAP #1 ea 11/22/22 CPAP (CPAP Machine/Device) #1 ea 11/22/22 peg 3350-electrolytes 236 240 ml PO Q10M 1 day #4,000 mL 12/15/22 gram-22.74 gram-6.74 gram-5.86 gram solution (Golytely) atorvastatin 20 mg tablet 20 mg PO DAILY #90 tabs 06/07/23 solifenacin 5 mg tablet 5 mg PO DAILY #90 tabs 08/10/23 metoprolol succinate 50 mg 50 mg PO DAILY #90 tabs 09/15/23 tablet,extended release 24 hr famotidine 40 mg tablet (Pepcid) 40 mg PO BEDTIME #30 tabs 10/05/23 linaclotide 72 mcg capsule 72 mcg PO QAM #30 caps 10/05/23 (Linzess) pantoprazole 20 mg tablet,delayed 20 mg PO BID #180 tabs 10/09/23 release (Protonix) sacubitril 49 mg-valsartan 51 mg 1 tab PO BID #180 tabs 10/27/23 tablet (Entresto) fexofenadine 180 mg tablet 180 mg PO DAILY #30 tabs 12/14/23 (Allergy Relief (fexofenadine)) ferrous sulfate 325 mg (65 mg 325 mg PO DAILY #90 tabs 12/22/23 iron) tablet fluticasone propionate 50 1 spray intranasal DAILY #16 grams 12/23/23 mcg/actuation nasal spray,suspension phenazopyridine 200 mg tablet 200 mg PO TID Discomfort with 01/04/24 (Pyridium) urination 6 doses #6 tabs Allergies Allergy/AdvReac Type Severity Reaction Status Date / Time aspirin [ASPIRIN] Allergy Severe ANAPHYLAXIS Verified 01/04/24 08:25 ibuprofen [From MOTRIN] Allergy Severe ANAPHYLAXIS Verified 01/04/24 08:25 Penicillins Allergy Severe ANAPHYLAXIS Verified 01/04/24 08:25 asenapine [From SAPHRIS] Allergy Intermediate ITCHING Verified 01/04/24 08:25 influenza virus vaccine, Allergy Intermediate DIZZINESS/S Verified 01/04/24 08:25 specific OB/CP [FLU VACCINE] quetiapine [From SEROQUEL] Allergy Intermediate HTN Verified 01/04/24 08:25 morphine [MORPHINE] Allergy Unknown Unknown Verified 01/04/24 08:25 ChlorproMAZINE Allergy Unknown Unknown Uncoded 12/11/23 09:28 Clindamycin HCl Allergy Unknown Unknown Uncoded 12/11/23 09:28 [facility] Past Medical History Source: nursing notes reviewed Medical History Pre-op examination COVID-19 Nausea and vomiting Shortness of breath Anemia Asthma BPH (benign prostatic hyperplasia) Arthritis Back pain History of traumatic head injury Schizophrenia Depression Sleep apnea Elevated cholesterol HTN (hypertension) Surgical History History of surgery Hx of cataract extraction Hx of cystoscopy Hx of cholecystectomy History of gastric surgery History of esophagogastroduodenoscopy (EGD) H/O colonoscopy Family History Family History Mother Cancer Father Prostate cancer Brother No problems noted. Sister Colon cancer Other Mental health disorder Social History Social History Housing: Apartment Alcohol intake: never Patient Tobacco Use Status: Never used Tobacco e-Cigarette/Vaping Use: Never Used Second Hand Smoke Exposure: No Advance Directives: No Advance Directives Information Provided: Yes service: No Current occupational status: disabled Cognitive needs: No Hearing needs: No Vision needs: No Physical Exam Vital Signs: Vital Signs: Last Vital Signs Temp 96.9 F 01/04/24 08:19 Pulse 72 01/04/24 12:15 Resp 17 01/04/24 12:15 BP 144/65 H 01/04/24 12:15 Pulse Ox 97 01/04/24 12:15 O2 Del Method Room Air 01/04/24 12:15 BMI result Body Mass Index 32.7 General appearance no distress, comfortable cooperative The neck is supple Chest is clear to auscultation bilateral Heart no murmur auscultated Abdomen was soft and nontender no rebound no guarding The back had some mild left lower lumbar tenderness and some left midline tenderness Skin no rashes Extremities full range motion x4 Neuro gait and balance are normal, interaction comprehension expression all normal, motor is 5/5 x4 and sensation in distal extremities intact and symmetrical Course Course Course Narrative: Patient remained comfortable throughout ER visit, a urinalysis was double checked because of his complaint about burning urination both samples were clear and normal no sign of infection A CBC showed normal white count, hemoglobin 14 and hematocrit 40.8 with platelets of 145, this is not new and he will follow with his doctor Chemistry was without any acute abnormalities, LFTs without acute abnormality Chlamydia and gonorrhea tests were negative Urinalysis negative CT abdomen and pelvis was done to make sure he did not have a kidney stone and there were no acute findings on the CT of abdomen and pelvis Patient remains comfortable throughout visit and repeat abdominal exam remains benign Likely patient has some musculoskeletal back pain, I could not explain the dysuria and to see if it helps I wrote for a few days of Pyridium Medical Decision Making Lab Data MDM Lab Attestation statement: I reviewed the patient's lab results. 01/04/24 08:30 01/04/24 08:30 Labs: Lab Results 01/04/24 01/04/24 01/04/24 Range/Units 08:30 08:35 10:58 WBC 8.3 (4.8-10.8) X10*3/uL RBC 4.29 L (4.60-5.80) X10*6/uL Hgb 14.0 (14.0-18.0) g/dl Hct 40.8 L (42.0-52.0) % MCV 95.1 (80.0-98.0) fL MCH 32.6 (27.0-33.0) pg MCHC 34.3 (31.0-36.0) g/dl RDW 13.2 (11.0-16.0) % Plt Count 145 L (160-400) X10*3/uL MPV 10.5 (9.4-12.4) fL Immature Gran % (Auto) 0.4 (0.0-0.4) % Neut % (Auto) 69.4 (45-73) % Lymph % (Auto) 17.2 L (20-40) % Campbell % (Auto) 9.3 (2-11) % Eos % (Auto) 3.1 (0-4) % Baso % (Auto) 0.6 (0-2) % Lymph # (Auto) 1.4 (1.2-4.9) X10*3/uL [place] # (Auto) 0.8 (0.1-1.2) X10*3/uL Eos # (Auto) 0.3 (0.0-0.4) X10*3/uL Baso # (Auto) 0.1 (0.0-0.2) X10*3/uL Abs Immat Gran (auto) 0.03 (0.00-0.03) X10*3/uL Absolute Neuts (auto) 5.8 (2.0-8.3) x10*3/uL Absolute Nucleated RBC 0.000 (0.0-0.012) X10*3/uL Nucleated RBC % (auto) 0.0 (0.0-0.2) /100WBC Sodium 140 (135-145) mmol/L Potassium 4.0 (3.3-5.1) mmol/L Chloride 105 (96-108) mmol/L Carbon Dioxide 29 (22-29) mmol/L Anion Gap 10 L (12-20) BUN 9 (9-16) mg/dL Creatinine 1.06 (0.5-1.4) mg/dL Estim Creat Clear Calc 65.1 Estimated GFR > 60 Random Glucose 93 (60-115) mg/dL Calcium 9.4 D (8.4-10.2) mg/dL Total Bilirubin 0.8 (0.0-1.0) mg/dL AST 23 (5-37) U/L ALT 18 (0-40) U/L Alkaline Phosphatase 81 (39-117) U/L Total Protein 6.4 L (6.5-8.0) g/dL Albumin 4.0 (3.5-5.0) g/dL Urine Color Yellow Urine Appearance Clear Urine pH 5.5 (5.0-9.0) Ur Specific [place] <= 1.005 (1.005-1.025) Urine Protein Negative (Neg-Trace) mg/dL Urine Glucose (UA) Negative (Negative) mg/dL Urine Ketones Negative (Negative) mg/dL Urine Blood Negative (Negative) Urine Nitrite Negative (Negative) Ur Leukocyte Esterase Negative (Negative) Urine RBC (0-2) /HPF Urine WBC (0-5) /HPF Ur Squamous Epith Cells (0-2) /HPF Urine Bacteria (None Seen) Hyaline Casts (0-2) /LPF Chlam trachomat DNA PCR NOT DETECTED (Not Detect.) N.gonorrhoeae DNA (PCR) NOT DETECTED (Not Detect.) 01/04/24 Range/Units 13:14 WBC (4.8-10.8) X10*3/uL RBC (4.60-5.80) X10*6/uL Hgb (14.0-18.0) g/dl Hct (42.0-52.0) % MCV (80.0-98.0) fL MCH (27.0-33.0) pg MCHC (31.0-36.0) g/dl RDW (11.0-16.0) % Plt Count (160-400) X10*3/uL MPV (9.4-12.4) fL Immature Gran % (Auto) (0.0-0.4) % Neut % (Auto) (45-73) % Lymph % (Auto) (20-40) % [place] % (Auto) (2-11) % Eos % (Auto) (0-4) % Baso % (Auto) (0-2) % Lymph # (Auto) (1.2-4.9) X10*3/uL [place] # (Auto) (0.1-1.2) X10*3/uL Eos # (Auto) (0.0-0.4) X10*3/uL Baso # (Auto) (0.0-0.2) X10*3/uL Abs Immat Gran (auto) (0.00-0.03) X10*3/uL Absolute Neuts (auto) (2.0-8.3) x10*3/uL Absolute Nucleated RBC (0.0-0.012) X10*3/uL Nucleated RBC % (auto) (0.0-0.2) /100WBC Sodium (135-145) mmol/L Potassium (3.3-5.1) mmol/L Chloride (96-108) mmol/L Carbon Dioxide (22-29) mmol/L Anion Gap (12-20) BUN (9-16) mg/dL Creatinine (0.5-1.4) mg/dL Estim Creat Clear Calc Estimated GFR Random Glucose (60-115) mg/dL Calcium (8.4-10.2) mg/dL Total Bilirubin (0.0-1.0) mg/dL AST (5-37) U/L ALT (0-40) U/L Alkaline Phosphatase (39-117) U/L Total Protein (6.5-8.0) g/dL Albumin (3.5-5.0) g/dL Urine Color Yellow Urine Appearance Clear Urine pH 7.5 (5.0-9.0) Ur Specific [place] 1.010 (1.005-1.025) Urine Protein Negative (Neg-Trace) mg/dL Urine Glucose (UA) Negative (Negative) mg/dL Urine Ketones Negative (Negative) mg/dL Urine Blood Negative (Negative) Urine Nitrite Negative (Negative) Ur Leukocyte Esterase Trace H (Negative) Urine RBC 0-2 (0-2) /HPF Urine WBC 0-5 (0-5) /HPF Ur Squamous Epith Cells 0-2 (0-2) /HPF Urine Bacteria None Seen (None Seen) Hyaline Casts 0-2 (0-2) /LPF Chlam trachomat DNA PCR (Not Detect.) N.gonorrhoeae DNA (PCR) (Not Detect.) Discharge Plan Discharge Clinical Impression: Back pain, Dysuria Patient Disposition: Home, Self-Care Additional Instructions: CT scan did not show any kidney stones or any emergent or dangerous condition Test of the urine did not show any infection If symptoms continue you will need to see primary doctor for referral to a urologist We are trying Macrobid for a couple of days to see if it helps the burning with urination Continue to use Tylenol for the back pain Return to the ER any time any worse condition or any concerns Prescriptions: New phenazopyridine [Pyridium] 200 mg tablet 200 mg PO TID Qty: 6 0RF No Action acetaminophen [Arthritis Pain Relief (acetam)] 650 mg tablet extended release 650 mg PO BID PRN (Reason: pain) Qty: 180 3RF albuterol 90 mcg/actuation aerosol 90 mcg inhalation Q6H PRN (DME) blood-glucose meter [EvenCare G2] Misc See Rx Instructions .Route Qty: 1 0RF Rx Instructions: As directed (DME) EvenCare G2 Strip See Rx Instructions .Route Qty: 50 3RF Rx Instructions: test daily (DME) CPAP Device See Rx Instructions .Route Qty: 1 0RF Rx Instructions: CPAP supplies (DME) CPAP Machine/Device Device See Rx Instructions .Route Qty: 1 0RF Rx Instructions: As directed solifenacin 5 mg tablet 5 mg PO DAILY Qty: 90 1RF metoprolol succinate 50 mg tablet extended release 24 hr 50 mg PO DAILY Qty: 90 3RF pantoprazole [Protonix] 20 mg tablet,delayed release (DR/EC) 20 mg PO BID Qty: 180 1RF Entresto 49-51 mg tablet 1 tab PO BID Qty: 180 0RF fexofenadine [Allergy Relief (fexofenadine)] 180 mg tablet 180 mg PO DAILY Qty: 30 3RF ferrous sulfate 325 mg (65 mg iron) tablet 325 mg PO DAILY Qty: 90 3RF fluticasone propionate 50 mcg/actuation spray,suspension 1 spray INTRANASAL DAILY Qty: 16 3RF prazosin 5 mg capsule 5 mg PO BEDTIME tetanus-diphtheria toxoids-Td 2-2 Lf unit/0.5 mL suspension 0.5 ml IM ONCE Qty: 0.5 0RF venlafaxine 150 mg capsule,extended release 24hr 150 mg PO DAILY olanzapine [Zyprexa] 20 mg tablet 20 mg PO BEDTIME trazodone 150 mg tablet 150 mg PO DAILY chlorpromazine 100 mg tablet 100 mg PO .COMPLEX Rx Instructions: 100 mg orally 1 tab orally at 4pm and at bedtime; polyvinyl alcohol 1.4 % drops 1 drp ophthalmic (eye) QID atorvastatin 20 mg tablet 20 mg PO DAILY Qty: 90 3RF peg 3350-electrolytes [Golytely] 236-22.74-6.74 -5.86 gram recon soln 240 ml PO Q10M 1 Days Qty: 4000 0RF Rx Instructions: until fecal effluent is clear; do not exceed a total volume of 2,000 mL chlorpromazine 25 mg tablet 25 mg PO TID mirtazapine 30 mg tablet 30 mg PO BEDTIME ascorbic acid (vitamin C) [Vitamin C] 500 mg tablet 500 mg PO DAILY Rexulti 1 mg tablet 1 mg PO DAILY hydroxyzine HCl 25 mg tablet 25 mg PO BID PRN Linzess 72 mcg capsule 72 mcg PO QAM Qty: 30 6RF famotidine [Pepcid] 40 mg tablet 40 mg PO BEDTIME Qty: 30 6RF Referrals: Harry Márquez MD [Physician] - (Unexplained dysuria) Print Language: Sammarinese
--- NOTE | 2024-01-04 10:59 | PC.NURSE ---
urine sent per request of provider
[2024-01-04 12:15] VITALS: BP 144/65; PULSE 72; RESP 17; O2SAT 97
[2024-01-04 12:39] LABS: CT PCR NOT DETECTED (Not Detect.); NG PCR NOT DETECTED (Not Detect.)
[2024-01-04 13:21] LABS: Appearance Urine Clear; Color Urine Yellow; Glucose Urine UA Negative (Negative); Leukocyte Esterase Urine Trace (Negative); Nitrite Urine Negative (Negative); PH 7.5 (5.0-9.0); UMIC TRIGGER UACC YES; Urine Blood Negative (Negative); Urine Ketones Negative (Negative); Urine Protein Negative (Neg-Trace)
[2024-01-04 13:23] LABS: Bacteria Urine None Seen (None Seen); Hyaline Casts Urine 0-2 /LPF (0-2); RBC Urine 0-2 /HPF (0-2); Squamous Epithelial Cell Urine 0-2 /HPF (0-2); WBC Urine 0-5 /HPF (0-5)
[2024-01-04 14:14] VITALS: BP 144/65; PULSE 72; RESP 17; TEMP 37.1; O2SAT 97
== END 2024-01-04 14:15 | disposition home or self-care (01) ==
PROVIDERS: Physician Assistant Medical; Emergency Provider Student in an Organized Health Care Education/Training Program; PCP Internal Medicine
DX: R30.0 Dysuria (principal); R10.9 Unspecified abdominal pain; E78.00 Pure hypercholesterolemia, unspecified; I11.0 Hypertensive heart disease with heart failure; I50.9 Heart failure, unspecified; J45.909 Unspecified asthma, uncomplicated; Z79.899 Other long term (current) drug therapy; Z79.02 Long term (current) use of antithrombotics/antiplatelets
CPT/HCPCS: 36415; 74176; 80053; 81001; 81003; 85025; 87491; 87591; 99283; 99284

== ENCOUNTER 2024-02-26 08:09 | Outpatient (REF) | payer MEDICARE, SELFPAY ==
[2024-02-26 09:34] LABS: Estimated Average Glucose 120 mg/dL; Hemoglobin A1c % 5.8 % (<6.0)
[2024-02-26 09:48] LABS: Cholesterol 172 mg/dL (<200); Glucose Fasting 105 mg/dL (60-99); HDL Cholesterol 45 mg/dL (>40); LDL Cholesterol Calculated 102 mg/dL (<100); Triglycerides 129 mg/dL (<150)
== END 2024-02-26 08:10 | disposition home or self-care (01) ==
LOC: HO.LAB 08:09
PROVIDERS: PCP Internal Medicine; Visit Provider Internal Medicine
DX: R73.9 Hyperglycemia, unspecified (principal); Z13.220 Encounter for screening for lipoid disorders
CPT/HCPCS: 36415; 80061; 82947; 83036

== ENCOUNTER 2024-05-12 07:40 | Outpatient (AMB) | payer MEDICARE, SELFPAY ==
[2024-05-12 08:09] VITALS: BP 124/68; PULSE 71; O2SAT 95; BMI 30.8
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
--- OUTSIDE RECORDS SUMMARY | 2024-05-14 12:40 | XMS_ITS | Clinical Summary ---
Author Organization Unknown Care Team Providers Care Credit Associate Name Role Phone ASHA MYRICK, YESY Unavailable Unavailable USMAN JACK, ANDRE Unavailable Unavailable Payers Payer Name Policy Type Policy Number Effective Date Expira tion Date [employer] MEDICARE ADVANTAGE FFS [id number] MEDICARE - NGS CT/DE - [facility] [id number] Problems Condition Name Condition Details Condition Category Status Onset Date Resolution Date Last Treatment Date Treating Clinician Comments SCHIZOAFFECT PAUL DISORDER, DEPRESSIVE TYPE Active 2023-06 00:00: 00 Allergies, Adverse Reactions, Alerts Allergy Name Allergy Type Status Severity Reaction(s) Onset Date Inactive Date Treating Clinician Comments NKA Propensity to adverse reactions Active 2024-04 00:31:5 6 Medications Ordered Medication Name Filled Medication Name Start Date Stop Date Current Medication? Ordering Clinician Indication Dosage Frequency Signature (SIG) Comments Components chlorpromaz ine 25 mg tablet 2023-06 00:00: 00 Yes [id number] 25 mg DIRECTED 25 mg DIRECTED (route: oral) Med Classific ation: Central Nervous System Agents chlorpromaz ine 50 mg tablet 2023-06 00:00: 00 Yes [id number] 50 mg BEDTIME 50 mg BEDTIME (route: oral) Med Classific ation: Central Nervous System Agents clonidine HCl 0.1 mg tablet 2023-06 00:00: 00 Yes [id number] 0.1 mg EVERY AM 0.1 mg EVERY AM (route: oral) Med Classific ation: Cardiovas cular Therapy Agents clonidine HCl 0.2 mg tablet 2023-06 00:00: 00 Yes [id number] 0.2 mg BEDTIME 0.2 mg BEDTIME (route: oral) Med Classific ation: Cardiovas cular Therapy Agents famotidine 20 mg tablet 2023-06 00:00: 00 Yes [id number] 20 mg BEDTIME 20 mg BEDTIME (route: oral) Med Classific ation: Gastroint estinal Therapy Agents fluticasone propionate 50 mcg/actuati on nasal spray,suspe nsion 2023-06 00:00: 00 Yes [id number] 50 spray DAILY 50 spray DAILY (route: nasal) Med Classific ation: Respirato ry Therapy Agents Iron (ferrous sulfate) 325 mg (65 mg iron) tablet 2023-06 00:00: 00 Yes [id number] 325 mg DAILY 325 mg DAILY (route: oral) Med Classific ation: Electroly te Balance-N utritiona l Products isosorbide dinitrate 30 mg tablet 2023-06 00:00: 00 Yes [id number] 30 mg DAILY 30 mg DAILY (route: oral) Med Classific ation: Cardiovas cular Therapy Agents metoprolol succinate ER 50 mg tablet,exte nded release 24 hr 2023-06 00:00: 00 Yes [id number] 50 mg DAILY 50 mg DAILY (route: oral) Med Classific ation: Cardiovas cular Therapy Agents mirtazapine 30 mg tablet 2023-06 00:00: 00 Yes [id number] 30 mg BEDTIME 30 mg BEDTIME (route: oral) Med Classific ation: Central Nervous System Agents olanzapine 20 mg tablet 2023-06 00:00: 00 Yes [id number] 20 mg BEDTIME 20 mg BEDTIME (route: oral) Med Classific ation: Central Nervous System Agents prazosin 5 mg capsule 2023-06 00:00: 00 Yes [id number] 5 mg BEDTIME 5 mg BEDTIME (route: oral) Med Classific ation: Cardiovas cular Therapy Agents Protonix 20 mg tablet,marcin yed release 2023-06 00:00: 00 Yes [id number] 20 mg DAILY 20 mg DAILY (route: oral) Med Classific ation: Gastroint estinal Therapy Agents Rexulti 1 mg tablet 2023-06 00:00: 00 Yes [id number] 1 mg DAILY 1 mg CONNIE Y (route: oral) Med Classific ation: Central Nervous System Agents trazodone 150 mg tablet 2023-06 00:00: 00 Yes [id number] 150 mg BEDTIME 150 mg BEDTIME (route: oral) Med Classific ation: Central Nervous System Agents venlafaxine ER 150 mg capsule,ext ended release 24 hr 2023-06 00:00: 00 Yes [id number] 150 mg DAILY 150 mg DAILY (route: oral) Med Classific ation: Central Nervous System Agents Vitamin B-12 1,000 mcg tablet 2023-06 00:00: 00 Yes [id number] 1000 mcg DAILY 1000 mcg DAILY (route: oral) Med Classific ation: Electroly te Balance-N utritiona l Products Vital Signs Vital Name Observation Time Observation Value Commen ts Temperature 2024-05-13 13:03:00.000 98 [degF] Temperature 2024-05-12 11:42:00.000 97.5 [degF] Temperature 2024-05-11 10:48:00.000 97.5 [degF] Temperature 2024-05-10 12:41:00.000 97.5 [degF] Temperature 2024-05-09 16:40:00.000 98 [degF] Temperature 2024-05-08 13:37:00.000 98 [degF] Temperature 2024-05-07 15:05:00.000 98 [degF] Temperature 2024-05-06 14:34:00.000 97.8 [degF] Temperature 2024-05-05 13:35:00.000 97.5 [degF] Temperature 2024-05-04 22:11:00.000 97.6 [degF] Temperature 2024-05-04 21:59:00.000 97 [degF] Temperature 2024-05-04 11:46:00.000 97.5 [degF] Temperature 2024-05-03 12:44:00.000 97.6 [degF] Temperature 2024-05-01 13:56:00.000 97.5 [degF] Height 2024-05-01 12:28:58.000 70 [in_us] Pulse 2024-05-01 13:56:00.000 72 /min Respirations 2024-05-01 13:56:00.000 18 /min Weight (lbs) 2024-05-01 12:29:19.000 Systolic Blood Pressure 2024-05-01 13:56:00.000 114 mm [Hg] Diastolic Blood Pressure 2024-05-01 13:56:00.000 66 mm [Hg] Plan of Treatment Planned Activity Planned Date Details Comments Future Scheduled Test SKILLED NU RSE TO EVALUATE PATIENT, IDENTIFY PRIMARY AND CO-MORBID CONDITIONS CODED PER CODING GUIDELINES, AND DEVELOP PATIENT SPECIFIC PLAN OF CARE THAT INCLUDES PATIENT GOAL FOR HOME HEALTH. [code = SKILLED NURSE TO EVALUATE PATIENT, IDENTIFY PRIMARY AND CO-MORBID CONDITIONS CODED PER CODING GUIDELINES, AND DEVELOP PATIENT SPECIFIC PLAN OF CARE THAT INCLUDES PATIENT GOAL FOR HOME HEALTH.] Future Scheduled Test SKILLED NU RSE TO PERFORM HOME SAFETY AND FALL ASSESSMENT AND PROVIDE INSTRUCTION TO IMPLEMENT HOME SAFETY AND FALL PREVENTION STRATEGIES. [code = SKILLED NURSE TO PERFORM HOME SAFETY AND FALL ASSESSMENT AND PROVIDE INSTRUCTION TO IMPLEMENT HOME SAFETY AND FALL PREVENTION STRATEGIES.] Future Scheduled Test PATIENT NICOLE S A RISK OF HOSPITALIZATION AND ED USE. SKILLED NURSE TO ESTABLISH SUPPORT MEASURES TO MINIMIZE RISK OF HOSPITALIZATION AND ED USE, AND INSTRUCT PATIENT/CAREGIVER ON METHODS TO REDUCE AVOIDABLE HOSPITALIZATION AND ED USE. [code = PATIENT HAS A RISK OF HOSPITALIZATION AND ED USE. SKILLED NURSE TO ESTABLISH SUPPORT MEASURES TO MINIMIZE RISK OF HOSPITALIZATION AND ED USE, AND INSTRUCT PATIENT/CAREGIVER ON METHODS TO REDUCE AVOIDABLE HOSPITALIZATION AND ED USE.] Future Scheduled Test SKILLED NU RSE TO PROVIDE INSTRUCTION TO PATIENT/CAREGIVER RELATED TO DISCHARGE PLANNING. [code = SKILLED NURSE TO PROVIDE INSTRUCTION TO PATIENT/CAREGIVER RELATED TO DISCHARGE PLANNING.] Future Scheduled Test SKILLED NU RSE WILL MAINTAIN SITUATIONAL AWARENESS FOR SAFETY AND WILL NOTIFY CLINICAL LAUNDRY FOLDER AND PHYSICIAN/PROVIDER WITH ANY CHANGE IN CONDITION. [code = SKILLED NURSE WILL MAINTAIN SITUATIONAL AWARENESS FOR SAFETY AND WILL NOTIFY CLINICAL LAUNDRY FOLDER AND PHYSICIAN/PROVIDER WITH ANY CHANGE IN CONDITION.] Future Scheduled Test SKILLED NU RSE TO REVIEW PATIENT MEDICATIONS. INSTRUCT PATIENT/CAREGIVER ON MONITORING OF EFFECTIVENESS, ADVERSE DRUG REACTIONS, SIDE EFFECTS OF ALL MEDICATIONS (PRESCRIPTION/-OTC), AND HOW AND WHEN TO REPORT PROBLEMS. [code = SKILLED NURSE TO REVIEW PATIENT MEDICATIONS. INSTRUCT PATIENT/CAREGIVER ON MONITORING OF EFFECTIVENESS, ADVERSE DRUG REACTIONS, SIDE EFFECTS OF ALL MEDICATIONS (PRESCRIPTION/-OTC), AND HOW AND WHEN TO REPORT PROBLEMS.] Future Scheduled Test SKILLED NU RSE TO ADMINISTER MEDICATIONS DAILY AND PRE-POUR MEDICATIONS TILL NEXT RESIDENTIAL VISIT PER MEDICATION LIST. [code = SKILLED NURSE TO ADMINISTER MEDICATIONS DAILY AND PRE-POUR MEDICATIONS TILL NEXT RESIDENTIAL VISIT PER MEDICATION LIST.] Future Scheduled Test SKILLED NU RSE FOR MEDICATION ADMINISTRATION PER MEDICATION LIST TO BE PERFORMED DAILY [code = SKILLED NURSE FOR MEDICATION ADMINISTRATION PER MEDICATION LIST TO BE PERFORMED DAILY ] Future Scheduled Test SKILLED NU RSE TO PRE-POUR MEDICATION PER MEDICATION LIST TILL NEXT RESIDENTIAL VISIT [code = SKILLED NURSE TO PRE-POUR MEDICATION PER MEDICATION LIST TILL NEXT RESIDENTIAL VISIT ] Future Scheduled Test PATIENT MA Y HAVE ONE SET OF EMERGENCY MEDICATION NOT TO BE PRE-POURED ANY SOONER THAN 24 HOURS BEFORE SEVERE INCLEMENT WEATHER OR EMERGENT EVENT AND FOLLOWING SKILLED NURSE EVALUATION OF PATIENT SAFETY. [code = PATIENT MAY HAVE ONE SET OF EMERGENCY MEDICATION NOT TO BE PRE-POURED ANY SOONER THAN 24 HOURS BEFORE SEVERE INCLEMENT WEATHER OR EMERGENT EVENT AND FOLLOWING SKILLED NURSE EVALUATION OF PATIENT SAFETY.] Future Scheduled Test SKILLED NU RSE FOR O/A AND SKILLED TEACHING RELATED TO MANAGEMENT OF DEPRESSIVE SYMPTOMS AND/OR DEPRESSION. SN TO REPORT SIGNIFICANT CHANGE IN DEPRESSIVE SYMPTOMS TO CLINICAL PROVIDER FOR EARLY INTERVENTION. [code = SKILLED NURSE FOR O/A AND SKILLED TEACHING RELATED TO MANAGEMENT OF DEPRESSIVE SYMPTOMS AND/OR DEPRESSION. SN TO REPORT SIGNIFICANT CHANGE IN DEPRESSIVE SYMPTOMS TO CLINICAL PROVIDER FOR EARLY INTERVENTION.] Future Scheduled Test SKILLED NU RSE FOR O/A OF PATIENT'S RISK FOR VIOLENCE (TOWARD SELF OR OTHERS) AND TO PROVIDE INTERVENTION TECHNIQUES TO PROMOTE SAFETY TO PATIENT AND OTHERS [code = SKILLED NURSE FOR O/A OF PATIENT'S RISK FOR VIOLENCE (TOWARD SELF OR OTHERS) AND TO PROVIDE INTERVENTION TECHNIQUES TO PROMOTE SAFETY TO PATIENT AND OTHERS] Future Scheduled Test SKILLED NU RSE FOR O/A OF ALTERED MOOD [code = SKILLED NURSE FOR O/A OF ALTERED MOOD] Future Scheduled Test SKILLED NU RSE FOR O/A OF ALTERED THOUGHT PROCESS AND/OR DISRUPTION IN COGNITIVE OPERATIONS AND ACTIVITIES [code = SKILLED NURSE FOR O/A OF ALTERED THOUGHT PROCESS AND/OR DISRUPTION IN COGNITIVE OPERATIONS AND ACTIVITIES ] Future Scheduled Test SKILLED NU RSE TO ASSESS PATIENTS PSYCHOSOCIAL STATUS TO IDENTIFY POTENTIAL ISSUES THAT MAY COMPLICATE THE PROVISION OF THE PLAN OF CARE INCLUDING THE PATIENTS ABILITY TO ACCESS COMMUNITY RESOURCES AND PSYCHOSOCIAL SUPPORT SERVICES. [code = SKILLED NURSE TO ASSESS PATIENTS PSYCHOSOCIAL STATUS TO IDENTIFY POTENTIAL ISSUES THAT MAY COMPLICATE THE PROVISION OF THE PLAN OF CARE INCLUDING THE PATIENTS ABILITY TO ACCESS COMMUNITY RESOURCES AND PSYCHOSOCIAL SUPPORT SERVICES.] Future Scheduled Test SKILLED NU RSE FOR O/A OF CLIENT'S SOCIAL ISOLATION AND PROVIDE ASSISTANCE TO CLIENT IN DEVELOPMENT OF PLANNED ACTIVITIES [code = SKILLED NURSE FOR O/A OF CLIENT'S SOCIAL ISOLATION AND PROVIDE ASSISTANCE TO CLIENT IN DEVELOPMENT OF PLANNED ACTIVITIES] Future Scheduled Test MEDICATION S WILL BE HELD AND STORED IN LOCKBOX [code = MEDICATIONS WILL BE HELD AND STORED IN LOCKBOX] Goal Patient Goal - TAKING MY MED S Goal Provider Goal - A PLAN OF CARE WILL BE ESTABLISHED THAT MEETS PATIENT'S RESIDENTIAL NEEDS AND INCLUDES PATIENT GOAL FOR HOME HEALTH. Goal Provider Goal - PATIENT/CAREGIVER WILL VERBALIZE/DEMONSTRATE EFFECTIVE HOME SAFETY AND FALL PREVENTION STRATEGIES THROUGHOUT CERTIFICATION PERIOD. Goal Provider Goal - PATIENT WILL HAVE SUPPORT MEASURES ESTABLISHED TO PREVENT HOSPITALIZATION AND ED USE AND PATIENT/CAREGIVER WILL VERBALIZE/DEMONSTRATE METHODS TO REDUCE AVOIDABLE HOSPITALIZATION AND ED USE BY END OF EPISODE. Goal Provider Goal - PATIENT/CAREGIVER WILL VERBALIZE UNDERSTANDING OF DISCHARGE PLANNING INSTRUCTIONS BY DATE OF DISCHARGE. Goal Provider Goal - PATIENT WILL REMAIN SAFE IN THE COMMUNITY AND WILL BE FREE OF DANGER TO SELF AND OTHERS THROUGHOUT THE CERTIFICATION PERIOD. Goal Provider Goal - PATIENT/CAREGIVER WILL VERBALIZE UNDERSTANDING OF EDUCATION PROVIDED ON MEDICATIONS BY THE END OF THE CERTIFICATION PERIOD. Goal Provider Goal - PATIENT WILL COMPLY WITH MEDICATION WHEN SKILLED NURSE ADMINISTERS AND PRE-POURS MEDICATION THROUGHOUT CERTIFICATION PERIOD. Goal Provider Goal - PATIENT WILL COMPLY WITH MEDICATION WHEN NURSE ADMINISTERS THROUGHOUT CERTIFICATION PERIOD. Goal Provider Goal - PATIENT WILL COMPLY WITH MEDICATION WHEN SKILLED NURSE PRE-POURS MEDICATION THROUGHOUT CERTIFICATION PERIOD. Goal Provider Goal - MEDICATION WILL BE AVAILABLE DURING INCLEMENT WEATHER OR EMERGENT EVENT THROUGHOUT CERTIFICATION PERIOD. Goal Provider Goal - PATIENT WILL REMAIN SAFE WITHOUT DECOMPENSATION IN DEPRESSIVE CONDITION, WHILE MAINTAINING OPTIMAL LEVEL OF MENTAL HEALTH AND WELL BEING THROUGHOUT CERTIFICATION PERIOD. Goal Provider Goal - PATIENT WILL REMAIN SAFE IN COMMUNITY WITHOUT EVIDENCE OF INJURY/HARM TO SELF OR OTHERS THROUGHOUT CERTIFICATION PERIOD. Goal Provider Goal - PATIENT WILL BE ABLE TO PERFORM DAILY FUNCTIONS AND HAVE OPTIMAL IMPROVEMENT IN MOOD STABILITY THROUGHOUT CERTIFICATION PERIOD. Goal Provider Goal - PATIENT WILL BE ABLE TO PERFORM DAILY FUNCTIONS AND HAVE OPTIMAL IMPROVEMENT IN THOUGHT PROCESS THROUGHOUT CERTIFICATION PERIOD. Goal Provider Goal - PSYCHOSOCIAL NEEDS WILL BE IDENTIFIED AND PLAN IMPLEMENTED TO MINIMIZE RISK THROUGHOUT CERTIFICATION PERIOD. Goal Provider Goal - PATIENT WILL DEMONSTRATE AN INCREASED INTEREST IN SOCIALIZATION AND ACTIVITIES BY THE END OF THE CERTIFICATION PERIOD. Goal Provider Goal - MEDICATION WILL BE STORED IN LOCKBOX FOR SAFETY. Progress Notes Progress Notes <paragraph>[Visit Date: 2023 by ANDRE MARY RN]:</paragraph><paragraph>PATIENT EDUCATED ABOUT AVOIDING DRUGS/ALCOHOL, ATTEND ACCOUNTABILITY GROUPS LIKE AA, AVOID OLD RELATIONSHIPS/CONNECTIONS TO DRUGS, AND ENGAGE IN POSITIVE ACTIVITIES LIKE EXERCISE OR DAY PROGRAMS, PATIENT VERBALIZED UNDERSTANDING, WILL NEED ONGOING REINFORCEMENT.</paragraph> <paragraph>[Visit Date: 2023 by ANDRE MARY RN]:</paragraph><paragraph>PATIENT EDUCATED ABOUT WAYS TO EXPRESS FEELINGS SUCH THROUGH TALKING ABOUT IT, WRITING, MUSIC, OR DOING ART, PATIENT VERBALIZED UNDERSTANDING.</paragraph> <paragraph>[Visit Date: 2023 by ANDRE MARY RN]:</paragraph><paragraph>PATIENT EDUCATED ABOUT COPING SKILLS INCLUDING ENGAGING IN A HOBBY, AVOIDING W THAT CAUSE DEPRESSION/ANXIETY, AND TALKING TO A PROFESSIONAL/TRUSTED FRIENDS/FAMILY ABOUT FEELINGS, PATIENT VERBALIZED UNDERSTANDING.</paragraph> <paragraph>[Visit Date: 2023 by ANDRE MARY RN]:</paragraph><paragraph>PATIENT EDUCATED ABOUT WAYS TO PREVENT SICKNESS INCLUDING WASHING HANDS WITH SOAP/WARM WATER FREQUENTLY, EATING A WELL BALANCED DIET/DRINKING PLENTY OF FLUIDS, AND AVOIDING PEOPLE WHO ARE SICK, PATIENT VERBALIZED UNDERSTANDING.</paragraph> <paragraph>[Visit Date: 2023 by ANDRE MARY RN]:</paragraph><paragraph>PATIENT EDUCATED ABOUT COPING SKILLS INCLUDING ENGAGING IN A HOBBY, AVOIDING W THAT CAUSE DEPRESSION/ANXIETY, AND TALKING TO A PROFESSIONAL/TRUSTED FRIENDS/FAMILY ABOUT FEELINGS, PATIENT VERBALIZED UNDERSTANDING.</paragraph> <paragraph>[Visit Date: 2023 by ANDRE MARY RN]:</paragraph><paragraph>PATIENT EDUCATED ABOUT NOT CONSUMING ALCOHOL WHILE ON MEDICATIONS IT CAN CAUSE ADVERSE REACTIONS, PATIENT VERBALIZED UNDERSTANDING.</paragraph> Encounters Start Date/Time End Date/Time Encounter Type Admission Type Attending [facility] Care Department Encounter ID Discharge Date Discharge Status Discharge Condition Discharge Reason Percent Goals Met 2024-04-30 00:00:00 2024-06-28 00:00:00 Outpatient NEW ADMISSION ANDRE MARY [facility] [id number] 29.41
== END 2024-05-12 08:49 | disposition home or self-care (01) ==
PROVIDERS: PCP Internal Medicine; Visit Provider Internal Medicine
DX: E78.00 Pure hypercholesterolemia, unspecified (principal)

== ENCOUNTER → 2024-05-12 07:40 | Outpatient (BNVA) | payer MEDICARE, SELFPAY | PROVIDERS: PCP Internal Medicine; Visit Provider Internal Medicine | DX: E78.00 Pure hypercholesterolemia, unspecified (principal) | CPT/HCPCS: 96127; 99212 ==

== ENCOUNTER 2024-05-14 08:42 | Outpatient (REF) | payer MEDICARE, SELFPAY ==
[2024-05-14 09:02] LABS: MANUAL DIFF FLAG NO
[2024-05-14 10:09] LABS: Basophils Absolute Auto 0.1 X10*3/uL (0.0-0.2); Basophils Percent Auto 0.7 % (0-2); Eosinophils Absolute Auto 0.6 X10*3/uL (0.0-0.4); Eosinophils Percent Auto 8.3 % (0-4); Hematocrit 42.2 % (42.0-52.0); Hemoglobin 14.6 g/dl (14.0-18.0); Imm Gran Abs Auto 0.02 X10*3/uL (0.00-0.03); Imm Gran Pct Auto 0.3 % (0.0-0.4); Lymphocytes Absolute Auto 2.5 X10*3/uL (1.2-4.9); Lymphocytes Percent Auto 34.3 % (20-40); Mean Corpuscular HGB Conc 34.6 g/dl (31.0-36.0); Mean Corpuscular Hemoglobin 32.5 pg (27.0-33.0); Mean Platelet Volume 10.6 fL (9.4-12.4); Monocytes Absolute Auto 0.8 X10*3/uL (0.1-1.2); Monocytes Percent Auto 10.8 % (2-11); Neutrophils Absolute Auto 3.3 x10*3/uL (2.0-8.3); Neutrophils Percent Auto 45.6 % (45-73); Platelet Count 167 X10*3/uL (160-400); Red Blood Count 4.49 X10*6/uL (4.60-5.80); Red Cell Distribution Width 13.3 % (11.0-16.0); White Blood Count 7.2 X10*3/uL (4.8-10.8)
[2024-05-14 10:53] LABS: Alanine Aminotransferase 33 U/L (0-40); Alkaline Phosphatase 97 U/L (39-117); Anion Gap 9 (12-20); Aspartate Amino Transferase 30 U/L (5-37); Bilirubin Total 0.5 mg/dL (0.0-1.0); Blood Urea Nitrogen 16 mg/dL (9-16); Calcium 9.3 mg/dL (8.4-10.2); Carbon Dioxide 31 mmol/L (22-29); Chloride 106 mmol/L (96-108); Cholesterol 191 mg/dL (<200); Estimated Glomerular Filt Rate > 60; Glucose Fasting 90 mg/dL (60-99); HDL Cholesterol 49 mg/dL (>40); LDL Cholesterol Calculated 121 mg/dL (<100); Potassium 3.6 mmol/L (3.3-5.1); Sodium 142 mmol/L (135-145); Total Protein 6.6 g/dL (6.5-8.0); Triglycerides 107 mg/dL (<150)
[2024-05-14 11:11] LABS: Thyroid Stimulating Hormone 3.42 uIU/mL (0.32-4.0)
--- OUTSIDE RECORDS SUMMARY | 2024-05-14 23:08 | XMS_ITS | Clinical Summary ---
Author Organization Unknown Care Team Providers Care Retail Loan Originator Assistant Name Role Phone ASHA MYRICK, YESY Unavailable Unavailable USMAN JACK, ANDRE Unavailable Unavailable Payers Payer Name Policy Type Policy Number Effective Date Expira tion Date [employer] MEDICARE ADVANTAGE FFS [id number] [place] - [place] - [facility] [id number] Problems Condition Name Condition Details Condition Category [...] 25 mg tablet 2023-06 00:00: 00 Yes [id number] 25 mg DIRECTED 25 mg DIRECTED (route: oral) Med Classific ation: Central Nervous System Agents chlorpromaz ine 50 mg tablet 2023-06 00:00: 00 Yes [id number] 50 mg BEDTIME 50 mg BEDTIME (route: oral) Med Classific ation: Central Nervous System Agents clonidine HCl 0.1 mg tablet 2023-06 00:00: 00 Yes [id number] 0.1 mg EVERY AM 0.1 mg EVERY AM (route: oral) Med Classific ation: Cardiovas cular Therapy Agents clonidine HCl 0.2 mg tablet 2023-06 00:00: 00 Yes [id number] 0.2 mg BEDTIME 0.2 mg BEDTIME (route: oral) Med Classific ation: Cardiovas cular Therapy Agents famotidine 20 mg tablet 2023-06 00:00: 00 Yes [id number] 20 mg BEDTIME 20 mg BEDTIME (route: oral) Med Classific ation: Gastroint estinal Therapy Agents fluticasone propionate 50 mcg/actuati on nasal spray,suspe nsion 2023-06 00:00: 00 Yes [id number] 50 spray DAILY 50 spray DAILY (route: nasal) Med Classific ation: Respirato ry Therapy Agents Iron (ferrous sulfate) 325 mg (65 mg iron) tablet 2023-06 00:00: 00 Yes [id number] 325 mg DAILY 325 mg DAILY (route: oral) Med Classific ation: Electroly te Balance-N utritiona l Products isosorbide dinitrate 30 mg tablet 2023-06 00:00: 00 Yes [id number] 30 mg DAILY 30 mg DAILY (route: oral) Med Classific ation: Cardiovas cular Therapy Agents metoprolol succinate ER 50 mg tablet,exte nded release 24 hr 2023-06 00:00: 00 Yes [id number] 50 mg DAILY 50 mg DAILY (route: oral) Med Classific ation: Cardiovas cular Therapy Agents mirtazapine 30 mg tablet 2023-06 00:00: 00 Yes [id number] 30 mg BEDTIME 30 mg BEDTIME (route: oral) Med Classific ation: Central Nervous System Agents olanzapine 20 mg tablet 2023-06 00:00: 00 Yes [id number] 20 mg BEDTIME 20 mg BEDTIME (route: oral) Med Classific ation: Central Nervous System Agents prazosin 5 mg capsule 2023-06 00:00: 00 Yes [id number] 5 mg BEDTIME 5 mg BEDTIME (route: oral) Med Classific ation: Cardiovas cular Therapy Agents Protonix 20 mg tablet,marcin yed release 2023-06 00:00: 00 Yes [id number] 20 mg DAILY 20 mg DAILY (route: oral) Med Classific ation: Gastroint estinal Therapy Agents Rexulti 1 mg tablet 2023-06 00:00: 00 Yes [id number] 1 mg DAILY 1 mg CONNIE Y (route: oral) Med Classific ation: Central Nervous System Agents trazodone 150 mg tablet 2023-06 00:00: 00 Yes [id number] 150 mg BEDTIME 150 mg BEDTIME (route: oral) Med Classific ation: Central Nervous System Agents venlafaxine ER 150 mg capsule,ext ended release 24 hr 2023-06 00:00: 00 Yes [id number] 150 mg DAILY 150 mg DAILY (route: oral) Med Classific ation: Central Nervous System Agents Vitamin B-12 1,000 mcg tablet 2023-06 00:00: 00 Yes [id number] 1000 mcg DAILY 1000 mcg DAILY (route: [...] AWARENESS FOR SAFETY AND WILL NOTIFY CLINICAL SUSTAINABILITY COORDINATOR AND PHYSICIAN/PROVIDER WITH ANY CHANGE IN CONDITION. [code = SKILLED NURSE WILL MAINTAIN SITUATIONAL AWARENESS FOR SAFETY AND WILL NOTIFY CLINICAL SUSTAINABILITY COORDINATOR AND PHYSICIAN/PROVIDER WITH ANY CHANGE IN CONDITION.] [...] MEDICATIONS DAILY AND PRE-POUR MEDICATIONS TILL NEXT INTERMEDIATE VISIT PER MEDICATION LIST. [code = SKILLED NURSE TO ADMINISTER MEDICATIONS DAILY AND PRE-POUR MEDICATIONS TILL NEXT INTERMEDIATE VISIT PER MEDICATION LIST.] Future Scheduled Test SKILLED NU RSE FOR MEDICATION ADMINISTRATION PER MEDICATION LIST TO BE PERFORMED DAILY [code = SKILLED NURSE FOR MEDICATION ADMINISTRATION PER MEDICATION LIST TO BE PERFORMED DAILY ] Future Scheduled Test SKILLED NU RSE TO PRE-POUR MEDICATION PER MEDICATION LIST TILL NEXT INTERMEDIATE VISIT [code = SKILLED NURSE TO PRE-POUR MEDICATION PER MEDICATION LIST TILL NEXT INTERMEDIATE VISIT ] Future Scheduled Test PATIENT MA [...] CARE WILL BE ESTABLISHED THAT MEETS PATIENT'S INTERMEDIATE NEEDS AND INCLUDES PATIENT GOAL FOR HOME [...] End Date/Time Encounter Type Admission Type Attending [facility] Care Department Encounter ID Discharge Date Discharge Status Discharge Condition Discharge Reason Percent Goals Met 2024-04-30 00:00:00 2024-06-28 00:00:00 Outpatient NEW ADMISSION ANDRE MARY [facility] [id number] 29.41
--- OUTSIDE RECORDS SUMMARY | 2024-05-14 23:08 | XMS_ITS | Clinical Summary ---
Author Organization Unknown Care Team Providers Care Mask Inspector Name Role Phone ASHA MYRICK, YESY Unavailable Unavailable USMAN JACK, ANDRE Unavailable Unavailable Payers Payer Name Policy Type Policy Number Effective Date Expira tion Date ZZZ [employer] MEDICARE ADVANTAGE FFS [id number] MEDICARE - [place] - [facility] [id number] Problems Condition Name Condition Details Condition Category [...] 25 mg tablet 2023-06 00:00: 00 Yes [id number] 25 mg DIRECTED 25 mg DIRECTED (route: oral) Med Classific ation: Central Nervous System Agents chlorpromaz ine 50 mg tablet 2023-06 00:00: 00 Yes [id number] 50 mg BEDTIME 50 mg BEDTIME (route: oral) Med Classific ation: Central Nervous System Agents clonidine HCl 0.1 mg tablet 2023-06 00:00: 00 Yes [id number] 0.1 mg EVERY AM 0.1 mg EVERY AM (route: oral) Med Classific ation: Cardiovas cular Therapy Agents clonidine HCl 0.2 mg tablet 2023-06 00:00: 00 Yes [id number] 0.2 mg BEDTIME 0.2 mg BEDTIME (route: oral) Med Classific ation: Cardiovas cular Therapy Agents famotidine 20 mg tablet 2023-06 00:00: 00 Yes [id number] 20 mg BEDTIME 20 mg BEDTIME (route: oral) Med Classific ation: Gastroint estinal Therapy Agents fluticasone propionate 50 mcg/actuati on nasal spray,suspe nsion 2023-06 00:00: 00 Yes [id number] 50 spray DAILY 50 spray DAILY (route: nasal) Med Classific ation: Respirato ry Therapy Agents Iron (ferrous sulfate) 325 mg (65 mg iron) tablet 2023-06 00:00: 00 Yes [id number] 325 mg DAILY 325 mg DAILY (route: oral) Med Classific ation: Electroly te Balance-N utritiona l Products isosorbide dinitrate 30 mg tablet 2023-06 00:00: 00 Yes [id number] 30 mg DAILY 30 mg DAILY (route: oral) Med Classific ation: Cardiovas cular Therapy Agents metoprolol succinate ER 50 mg tablet,exte nded release 24 hr 2023-06 00:00: 00 Yes [id number] 50 mg DAILY 50 mg DAILY (route: oral) Med Classific ation: Cardiovas cular Therapy Agents mirtazapine 30 mg tablet 2023-06 00:00: 00 Yes [id number] 30 mg BEDTIME 30 mg BEDTIME (route: oral) Med Classific ation: Central Nervous System Agents olanzapine 20 mg tablet 2023-06 00:00: 00 Yes [id number] 20 mg BEDTIME 20 mg BEDTIME (route: oral) Med Classific ation: Central Nervous System Agents prazosin 5 mg capsule 2023-06 00:00: 00 Yes [id number] 5 mg BEDTIME 5 mg BEDTIME (route: oral) Med Classific ation: Cardiovas cular Therapy Agents Protonix 20 mg tablet,marcin yed release 2023-06 00:00: 00 Yes [id number] 20 mg DAILY 20 mg DAILY (route: oral) Med Classific ation: Gastroint estinal Therapy Agents Rexulti 1 mg tablet 2023-06 00:00: 00 Yes [id number] 1 mg DAILY 1 mg CONNIE Y (route: oral) Med Classific ation: Central Nervous System Agents trazodone 150 mg tablet 2023-06 00:00: 00 Yes [id number] 150 mg BEDTIME 150 mg BEDTIME (route: oral) Med Classific ation: Central Nervous System Agents venlafaxine ER 150 mg capsule,ext ended release 24 hr 2023-06 00:00: 00 Yes [id number] 150 mg DAILY 150 mg DAILY (route: oral) Med Classific ation: Central Nervous System Agents Vitamin B-12 1,000 mcg tablet 2023-06 00:00: 00 Yes [id number] 1000 mcg DAILY 1000 mcg DAILY (route: [...] AWARENESS FOR SAFETY AND WILL NOTIFY CLINICAL INSTRUCTIONAL COACH AND PHYSICIAN/PROVIDER WITH ANY CHANGE IN CONDITION. [code = SKILLED NURSE WILL MAINTAIN SITUATIONAL AWARENESS FOR SAFETY AND WILL NOTIFY CLINICAL INSTRUCTIONAL COACH AND PHYSICIAN/PROVIDER WITH ANY CHANGE IN CONDITION.] [...] MEDICATIONS DAILY AND PRE-POUR MEDICATIONS TILL NEXT [facility] VISIT PER MEDICATION LIST. [code = SKILLED NURSE TO ADMINISTER MEDICATIONS DAILY AND PRE-POUR MEDICATIONS TILL NEXT [facility] VISIT PER MEDICATION LIST.] Future Scheduled Test SKILLED NU RSE FOR MEDICATION ADMINISTRATION PER MEDICATION LIST TO BE PERFORMED DAILY [code = SKILLED NURSE FOR MEDICATION ADMINISTRATION PER MEDICATION LIST TO BE PERFORMED DAILY ] Future Scheduled Test SKILLED NU RSE TO PRE-POUR MEDICATION PER MEDICATION LIST TILL NEXT [facility] VISIT [code = SKILLED NURSE TO PRE-POUR MEDICATION PER MEDICATION LIST TILL NEXT [facility] VISIT ] Future Scheduled Test PATIENT MA [...] CARE WILL BE ESTABLISHED THAT MEETS PATIENT'S [facility] NEEDS AND INCLUDES PATIENT GOAL FOR HOME [...] End Date/Time Encounter Type Admission Type Attending [facility] Care Department Encounter ID Discharge Date Discharge Status Discharge Condition Discharge Reason Percent Goals Met 2024-04-30 00:00:00 2024-06-28 00:00:00 Outpatient NEW ADMISSION ANDRE MARY [facility] [id number] 29.41
== END 2024-05-14 08:43 | disposition home or self-care (01) ==
LOC: HO.LAB 08:42
PROVIDERS: PCP Internal Medicine; Visit Provider Internal Medicine
DX: Z13.29 Encounter for screening for other suspected endocrine disorder (principal); Z13.9 Encounter for screening, unspecified; Z13.0 Encounter for screening for diseases of the blood and blood-forming organs and certain disorders involving the immune mechanism; Z13.220 Encounter for screening for lipoid disorders
CPT/HCPCS: 36415; 80053; 80061; 84443; 85025

== ENCOUNTER 2024-08-29 09:12 | Outpatient (AMB) | payer OTHER, SELFPAY ==
--- NOTE | 2024-08-29 09:24 | A.OFFPC_ITS ---
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 Crown Ironer Operator Language: Pluck Separator Name: Used tablet: Derrick [id number] Accompanied by: Self / Same As Patient Allergies aspirin [ASPIRIN] Allergy (Severe, Verified 08/30/24 20:17) ANAPHYLAXIS ibuprofen [From MOTRIN] Allergy (Severe, Verified 08/30/24 20:17) ANAPHYLAXIS Penicillins Allergy (Severe, Verified 08/30/24 20:17) ANAPHYLAXIS asenapine [From SAPHRIS] Allergy (Intermediate, Verified 08/30/24 20:17) ITCHING influenza virus vaccine, specific [FLU VACCINE] Allergy (Intermediate, Verified 08/30/24 20:17) DIZZINESS/SOB/CP quetiapine [From SEROQUEL] Allergy (Intermediate, Verified 08/30/24 20:17) HTN morphine [MORPHINE] Allergy (Unknown, Verified 08/30/24 20:17) Unknown ChlorproMAZINE Allergy (Unknown, Uncoded 08/30/24 20:17) Unknown Clindamycin HCl Allergy (Unknown, Uncoded 08/30/24 20:17) Unknown Tobacco use date assessed: 08/29/24 Fall risk assessment: No Falls in past year Last assessed Fall Risk: 08/29/24 Dental Screening Dental Screen Date: 08/29/24 Did you have a dental visit in the last 12 months?: Yes Did you have a dental problem in the last 6 months where you did not have access to dental care?: No Was dental information given to patient?: Patient has dentist HPI EMILY Dr Ochoa HPI Details Patient is a 73-year-old male with past medical history of chronic idiopathic constipation, hypercholesterolemia, sleep apnea, congestive heart failure, asthma, anemia, high blood pressure, schizophrenia and depression The patient is presenting today to transition of care from Dr. Ochoa, who retired. Patient is presenting with few concerns Needs refill on albuterol sulfate and metoprolol Dizziness: Intermittent, last time 2 days ago. Reports that his blood sugar drops sometimes below 60s in the morning before eating and this could cause him to be dizzy. Reports that after eating in his blood sugar goes up in the 150s to 170s Patient reports that he is not on any blood pressure medication. Encouraged the patient to check his blood sugar when he feels dizzy and he does snack. A1c in office is 5.7% The patient also reports that he was told that his heart rate drops low and this could be causing him to be dizzy as well Patient reports that she has not seen cardiology in a while because it is expensive. Reports that the last time he went he was charged over 700 dollars. Per chart review, patient was seen by [facility] in 2022. The patient does have a history of congestive heart failure. An EKG done in office showed that the patient has a right bundle. This is consistent with his previous EKG. Patient reports that his brother recently passed from heart disease and he was only in his 60s. We will refer the patient to Cardiology C Patient also complains of bilateral lower leg rash/ itchiness Both leg ithciness: triamcinolone 0.1% ordered It was noted that the patient has not refilled a lot of his medications for a while The patient reports that he has not refilled his medication as he was in intermediate He denies shortness of breath, chest pain, heart palpitation or headaches PFSH Medical History Pre-op examination COVID-19 Nausea and vomiting Shortness of breath Anemia Asthma BPH (benign prostatic hyperplasia) Arthritis Back pain History of traumatic head injury Schizophrenia Depression Sleep apnea Elevated cholesterol HTN (hypertension) Surgical History History of surgery Hx of cataract extraction Hx of cystoscopy Hx of cholecystectomy History of gastric surgery History of esophagogastroduodenoscopy (EGD) H/O colonoscopy Family History Mother Cancer Father Prostate cancer Brother No problems noted. Sister Colon cancer Other Mental health disorder Social History Housing: Apartment Alcohol intake: never Patient Tobacco Use Status: Never used Tobacco Tobacco use type: Cigarette e-Cigarette/Vaping Use: Never Used Second Hand Smoke Exposure: No service: No Current occupational status: disabled Cognitive needs: No Hearing needs: No Vision needs: No Questionnaire Thrive Questionnaire Date Thrive assessed: 06/07/23 I am a: Patient What is your living situation today?: I have a steady place to live Within the past 12 months, did the food you bought not last and you didn't have the money to get more?: Never true Within the past 12 months, did you worry whether your food would run out before you got money to buy more?: Never true Do you have trouble paying for medicines?: No Do you have trouble getting transportation to medical appointments?: No Do you have trouble paying your heating and electricity bill?: No Do you have trouble taking care of your child, family member or friend?: No Do you have trouble with day-to-day activities such as bathing, preparing meals, shopping, managing finances, etc.?: No Are you currently unemployed and looking for a job?: No Are you interested in more education?: No Please select the resources that you would like help with: None Currently or been in a relationship where the following occur: No concerns reported THRIVE Score: 0 AUDIT C Alcohol Use Questionnaire (AUDIT-C) 1. How often do you have a drink containing alcohol?: Never 3. How often do you have six or more drinks on one occasion?: Never Total Score: 0 BENY-7 AMB Questionnaire BENY-7 Date BENY - 7 assessed: 06/07/23 Source: Developed by Drs. Sourav Dela Cruz, Camila Lau, Gerard Nuñez and colleagues, with an educational dc from [employer]. Review of Systems Const Denies headache(s) Eyes Denies loss of vision ENT Denies vertigo, Reports dizziness (intermittently), Denies headache(s) and Denies sore throat Card Denies chest pain, Denies leg edema and Denies lightheadedness Resp Denies cough, Denies hemoptysis and Denies wheezing GI Denies abdominal pain, Denies melena, Denies constipation, Denies diarrhea and Denies vomiting Denies dysuria, Denies urinary frequency and Denies urinary urgency Musc Denies arthralgias, Denies joint swelling, Denies numbness and Denies tingling Skin/Breast Reports pruritus and Reports rash (bilateral lower legs) Neuro Denies Abnormal speech present, Denies behavioral changes, Denies vertigo, Reports dizziness (intermittently), Denies headache(s), Denies loss of vision, Denies memory loss, Denies numbness and Denies tingling Psych Denies anxiety, Denies behavioral changes, Denies depression, Denies memory loss and Denies panic attacks Alvarez/Lymph Denies easy bleeding and Denies easy bruising Aller/Immun Denies wheezing Physical exam (Primary Care) Vital Signs: Last Vital Signs Temp 98.3 F 08/29/24 09:28 Pulse 76 08/29/24 09:28 Resp 18 08/29/24 09:28 BP 172/92 H 08/29/24 09:28 Pulse Ox 99 08/29/24 09:28 Oxygen Delivery Method Room Air 08/29/24 09:28 BMI result Body Mass Index 32.1 Tobacco/Smoking Status: Tobacco use Status Tobacco use date assessed 08/29/24 08/29/24 09:44 Patient Tobacco Use Status Never used Tobacco 08/29/24 09:44 Tobacco use type Cigarette 08/29/24 09:44 e-Cigarette/Vaping Use Never Used 08/29/24 09:44 Thrive Assessment: Date of Thrive Assessment Date Thrive assessed 06/07/23 08/29/24 09:26 Currently or been in a relationship where the following occur: No concerns reported Const General: healthy appearing, no acute distress, alert and awake Nutritional Appearance: well nourished Orientation/consciousness: oriented to person, oriented to place and oriented to time HENMT Ears: TM's normal bilaterally General nose exam: Normal nasal mucous membranes and turbinates present Eyes Conjunctivae: conjunctivae normal Sclerae: sclerae normal Pupils: Equal, round and reactive pupils present Neck Neck: Yes no lymphadenopathy and Yes no JVD Thyroid: Thyroid normal Carotids: no bruits Resp Effort & Inspection: normal respiratory effort and not tachypneic Auscultation: no crackles, no rales, no rhonchi and no wheezes Cardio Rate: regular rate Rhythm: regular rhythm Heart sounds: no murmurs and normal S1 and S2 GI Palpation (GI): Soft to palpation, nontender, no hepatomegaly and no splenomegaly Auscultation: normal bowel sounds Skin General skin exam: dry skin and petechiae (bilateral lower extremities) Neuro General: oriented to person, oriented to place and oriented to time Cranial nerves: Yes Equal, round and reactive pupils present Speech: No Abnormal speech present Gait exam (Neuro): Normal gait present Motor exam (neuro): no tremor noted Extrem Right upper extremity: full ROM Left upper extremity: full ROM Right lower extremity: full ROM; no edema Left lower extremity: full ROM; no edema Psych Mental Status: mental status grossly normal Speech and movement: Normal speech and movement present Affect: normal affect Attitude: cooperative Thought process: Normal thought process present Office Procedures EKG 70595-[id number], Complete Results AMB Hemoglobin A1c AMB Hemoglobin A1c 5.9 % Last Edit by Shayna Solorzano CMA on 08/29/24 10:27 Results Reviewed Results Reviewed: Laboratory Last Values Hgb A1c (Clinic) 5.9 % (4.0-6.0) 08/29/24 10:25 Coding Level of Care Code New Pt Level 4 (86327) Diagnoses Dizziness and giddiness R42 Congestive heart failure, unspecified HF chronicity, unspecified heart failure type I50.9 Heart failure chronicity: unspecified Heart failure type: unspecified Sleep apnea, unspecified type G47.30 Sleep apnea type: unspecified type Asthma, unspecified asthma severity, unspecified whether complicated, unspecified whether persistent J45.909 Asthma complication type: unspecified Asthma persistence: unspecified Asthma severity: unspecified severity Rash and nonspecific skin eruption R21 Hypertension, unspecified type I10 Hypertension type: unspecified CPT Codes EKG - CPT: 58224-[id number], Complete ([id number]) Time Spent (min) 43 Assessment & Plan Assessment & Plan (1) Dizziness and giddiness: Code(s): R42 - Dizziness and giddiness Category: Medical Plan: Reports intermittent dizzy. Reports that the last time was 2 days ago. Reports that blood sugar drops below 60 in the mornings before eating. Discussed with the patient to check blood sugar whenever he feels dizzy and to eat a snack if blood sugars go. Patient also has a history of heart failure. Reports that he was told that his heart rate dropped low (in the hospital) and causing him to be dizzy as well. Patient has not follow up with Cardiology in a while. Reports that it is too expensive and he had to pay around 700 dollars on 1 of his visits. We will refer the patient to Cardiology. EKG showed that the patient has a right bundle, which isn't new for the patient. Discussed with the patient that if he is starting to have chest pain he needs to go to the hospital. The patient verbalized that as needed. The patient also has ordered for ferrous sulfate 325 mg daily. Unsure if anemia could be a cause of his dizziness. Labs were ordered for the patient to do as soon as possible. (2) Congestive heart failure: Code(s): I50.9 - Heart failure, unspecified Category: Medical Qualifiers: Heart failure chronicity: unspecified Heart failure type: unspecified Qualified Code(s): I50.9 - Heart failure, unspecified Plan: History of heart failure has not followed up with Cardiology in a while. He is currently on metoprolol 50 mg daily ER. We will refer the patient to Cardiology at [facility] [place] to evaluate (3) Sleep apnea: Comment: uses CPAP Code(s): G47.30 - Sleep apnea, unspecified Category: Medical Qualifiers: Sleep apnea type: unspecified type Qualified Code(s): G47.30 - Sleep apnea, unspecified Plan: Continue CPAP (4) Asthma: Code(s): J45.909 - Unspecified asthma, uncomplicated Category: Medical Qualifiers: Asthma complication type: unspecified Asthma persistence: unspecified Asthma severity: unspecified severity Qualified Code(s): J45.909 - Unspecified asthma, uncomplicated Plan: Albuterol sulfate sulfate 90 mcg inhaler (5) Rash and nonspecific skin eruption: Comment: on shins bilaterally Code(s): R21 - Rash and other nonspecific skin eruption Category: Medical Plan: Triamcinolone acetonide 0.1% topical b.i.d. ordered (6) HTN (hypertension): Code(s): I10 - Essential (primary) hypertension Category: Medical Qualifiers: Hypertension type: unspecified Qualified Code(s): I10 - Essential (primary) hypertension Plan: Blood pressure elevated in office. Refill metoprolol 50 mg ER daily. Reinforced low-sodium diet. The patient to return in 6 weeks to monitor blood pressure. Orders: Orders Comprehensive [place]. Panel Fast 08/29/24 E78.00 - Pure hypercholesterolemia, unspecified, F20.9 - Schizophrenia, unspecified, F32.9 - Major depressive disorder, single episode, unspecified, G47.30 - Sleep apnea, unspecified, I50.9 - Heart failure, unspecified, J45.909 - Unspecified asthma, uncomplicated, R06.02 - Shortness of breath Lipid Panel 08/29/24 E78.00 - Pure hypercholesterolemia, unspecified, F20.9 - Schizophrenia, unspecified, F32.9 - Major depressive disorder, single episode, unspecified, G47.30 - Sleep apnea, unspecified, I50.9 - Heart failure, unspecified, J45.909 - Unspecified asthma, uncomplicated, R06.02 - Shortness of breath TSH reflex Free T4 08/29/24 E78.00 - Pure hypercholesterolemia, unspecified, F20.9 - Schizophrenia, unspecified, F32.9 - Major depressive disorder, single episode, unspecified, G47.30 - Sleep apnea, unspecified, I50.9 - Heart failure, unspecified, J45.909 - Unspecified asthma, uncomplicated, R06.02 - Shortness of breath UA CC w/rflx Micro + Cult 08/29/24 E78.00 - Pure hypercholesterolemia, unspecified, F20.9 - Schizophrenia, unspecified, F32.9 - Major depressive disorder, single episode, unspecified, G47.30 - Sleep apnea, unspecified, I50.9 - Heart failure, unspecified, J45.909 - Unspecified asthma, uncomplicated, R06.02 - Shortness of breath Vitamin D 25-OH Total 08/29/24 E78.00 - Pure hypercholesterolemia, unspecified, F20.9 - Schizophrenia, unspecified, F32.9 - Major depressive disorder, single episode, unspecified, G47.30 - Sleep apnea, unspecified, I50.9 - Heart failure, unspecified, J45.909 - Unspecified asthma, uncomplicated, R06.02 - Shortness of breath AMB EKG-In Office 08/29/24 Z13.6 - Encounter for screening for cardiovascular disorders Complete Blood Count Auto Diff 08/29/24 E78.00 - Pure hypercholesterolemia, unspecified, F20.9 - Schizophrenia, unspecified, F32.9 - Major depressive disorder, single episode, unspecified, G47.30 - Sleep apnea, unspecified, I50.9 - Heart failure, unspecified, J45.909 - Unspecified asthma, uncomplicated, R06.02 - Shortness of breath B Type Natriuretic Peptide 08/29/24 E78.00 - Pure hypercholesterolemia, unspecified, F20.9 - Schizophrenia, unspecified, F32.9 - Major depressive disorder, single episode, unspecified, G47.30 - Sleep apnea, unspecified, I50.9 - Heart failure, unspecified, J45.909 - Unspecified asthma, uncomplicated, R06.02 - Shortness of breath Glucose Fasting 08/29/24 E78.00 - Pure hypercholesterolemia, unspecified, F20.9 - Schizophrenia, unspecified, F32.9 - Major depressive disorder, single episode, unspecified, G47.30 - Sleep apnea, unspecified, I50.9 - Heart failure, unspecified, J45.909 - Unspecified asthma, uncomplicated, R06.02 - Shortness of breath AMB Hemoglobin A1c 08/29/24 Z13.9 - Encounter for screening, unspecified Referrals Cardiology Referral I10 - Essential (primary) hypertension, I50.9 - Heart failure, unspecified Medications: New albuterol sulfate 90 mcg/actuation 2 puffs inhalation Q4-6H PRN 6.7 grams 2RF shortness of breath or wheezing [Blood pressure machine] As directed 1 ea 0RF I10 - Essential (primary) hypertension, I50.9 - Heart failure, unspecified triamcinolone acetonide 0.1% 1 appl topical BID 80 grams 2RF itchy rash Refilled pantoprazole (Protonix) 20 mg PO BID 180 tabs 1RF R12 - Heartburn metoprolol succinate ER 50 mg PO DAILY 90 tabs 3RF I10 - Essential (primary) hypertension
[2024-08-29 09:28] VITALS: BP 172/92; PULSE 76; RESP 18; TEMP 36.8; O2SAT 99; BMI 32.1
== END 2024-08-29 10:32 | disposition home or self-care (01) ==
LOC: HO.HMCH 09:13
PROVIDERS: PCP Internal Medicine
DX: Z13.9 Encounter for screening, unspecified (principal)

== ENCOUNTER → 2024-08-29 09:12 | Outpatient (BNVA) | payer MEDICARE, SELFPAY | PROVIDERS: PCP Internal Medicine | DX: K59.04 Chronic idiopathic constipation (principal); E78.00 Pure hypercholesterolemia, unspecified; G47.30 Sleep apnea, unspecified; I11.0 Hypertensive heart disease with heart failure; I50.9 Heart failure, unspecified; J45.909 Unspecified asthma, uncomplicated; R42 Dizziness and giddiness; R21 Rash and other nonspecific skin eruption; R06.02 Shortness of breath | CPT/HCPCS: 83036; 93005 ==

== ENCOUNTER 2024-09-19 07:39 | Outpatient (REF) | payer MEDICARE, SELFPAY ==
--- OUTSIDE RECORDS SUMMARY | 2024-09-19 07:44 | XMS_ITS | Clinical Summary ---
Author Organization [facility] ity Address [address] [place] [address] Care Team Providers Care Head Of Transport Logistics Name Role Phone Abiodun Wilkins MD Primary Care Provider [phone] Medical History Medical History Date Comments Abdominal bloating DX:Abdominal bloating Epigastric pain DX:Epigastric pa in Nausea and vomiting DX:Nausea an d vomiting Passage of loose stools DX:Passa ge of loose stools Hyperlipidemia DX:Hyperlipidemi a Essential hypertension DX:Essent ial hypertension Social History Tobacco Use Types Packs/Day Years Used Date Smoking Tobacco: Never Smokeless Tobacco: Never Alcohol Use Standard Drinks/Week Comments Never 0 (1 standard drink = 0.6 oz pur e alcohol) Sex and Gender Information Value Date Recorded Sex Assigned at Not on file Legal Sex Male 5:21 PM EST Gender Identity Not on file Sexual Orientation Not on file Obstetrics History Last Filed Vital Signs Vital Sign Reading Time Taken Comments Blood Pressure 114/80 11/14/2021 11:20 AM EDT Pulse 91 11/14/2021 11:20 AM EDT Temperature - - Respiratory Rate - - Oxygen Saturation - - Inhaled Oxygen Concentration - - Weight 92.1 kg (203 lb 1.6 oz) 11/14/2021 11:20 AM EDT Height 175.3 cm (5' 9 ) 11/14/2021 11:20 AM EDT Body Mass Index 29.99 11/14/2021 11:20 AM EDT Plan of Treatment Health Maintenance Due Date Last Done Comments DTaP,Tdap,and Td Vaccines (1 - Tdap) 1970 Pneumococcal Vaccine: 50+ Ye ars (1 of 1 - PCV) 2001 Zoster Vaccines (1 of 2) 2001 RSV Immunization Adult Patie nts (1 - Risk 60-74 years 1-dose series) 2011 Abdominal Aortic Aneurysm (A AA) Screen 05/06/2022 Cholesterol Screening (Lipid Panel) 05/06/2022 Colorectal Cancer Screening: Colonoscopy 05/06/2022 Depression Screening 05/06/2022 Falls Risk Assessment 05/06/2022 Hepatitis C Screening 05/06/2022 Social Influencers of Health Screening 05/06/2022 Hypertension/CHF/CAD Annual BMP Blood Test 05/18/2022 COVID-19 Vaccine ( - 2023-2 5 season) 2024 Influenza Vaccine (Season Ended) 2025 HIB Vaccines Aged Out No longer eligi ble based on patient's age to complete this topic HPV Vaccines Aged Out No longer eligi ble based on patient's age to complete this topic Hepatitis A Vaccines Aged Out No long er eligible based on patient's age to complete this topic Hepatitis B Vaccines Aged Out No long er eligible based on patient's age to complete this topic IPV Vaccines Aged Out No longer eligi ble based on patient's age to complete this topic MMR Vaccines Aged Out No longer eligi ble based on patient's age to complete this topic Meningococcal ACWY Vaccine Aged Out N o longer eligible based on patient's age to complete this topic Meningococcal B Vaccine Aged Out No l onger eligible based on patient's age to complete this topic RSV Immunization Patients Un adrianne 20 months Aged Out No longer eligible b ased on patient's age to complete this topic Varicella Vaccines Aged Out No longer eligible based on patient's age to complete this topic Advance Directives Documents on File Type Date Recorded 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 Health Care Decision (hx) 10/06/2020 AD SCHERER DIRECTIVE Health Care Decision (hx) 10/06/2020 AD SCHERER DIRECTIVE Health Care Decision (hx) 10/06/2020 AD SCHERER DIRECTIVE Health Care Decision (hx) 10/06/2020 AD SCHERER DIRECTIVE Health Care Decision (hx) 10/06/2020 AD SCHERER DIRECTIVE Health Care Decision (hx) 10/06/2020 AD SCHERER DIRECTIVE Health Care Decision (hx) 10/06/2020 AD SCHERER DIRECTIVE Health Care Decision (hx) 10/06/2020 AD SCHERER DIRECTIVE Health Care Decision (hx) 10/06/2020 AD SCHERER DIRECTIVE Health Care Decision (hx) 10/06/2020 AD SCHERER DIRECTIVE Health Care Decision (hx) 03/01/2015 AD SCHERER DIRECTIVE Health Care Decision (hx) 03/01/2015 AD SCHERER DIRECTIVE Health Care Decision (hx) 03/01/2015 AD SCHERER DIRECTIVE Health Care Decision (hx) 03/01/2015 AD SCHERER DIRECTIVE Health Care Decision (hx) 03/01/2015 AD SCHERER DIRECTIVE Health Care Decision (hx) 03/01/2015 AD SCHERER DIRECTIVE Health Care Decision (hx) 03/01/2015 AD SCHERER DIRECTIVE Health Care Decision (hx) 03/01/2015 AD SCHERER DIRECTIVE Health Care Decision (hx) 03/01/2015 AD SCHERER DIRECTIVE Health Care Decision (hx) 02/27/2015 AD SCHERER DIRECTIVE Health Care Decision (hx) 02/27/2015 AD SCHERER DIRECTIVE Health Care Decision (hx) 02/27/2015 AD SCHERER DIRECTIVE Health Care Decision (hx) 02/27/2015 AD SCHERER DIRECTIVE Health Care Decision (hx) 02/27/2015 AD SCHERER DIRECTIVE Health Care Decision (hx) 02/27/2015 AD SCHERER DIRECTIVE Health Care Decision (hx) 02/27/2015 AD SCHERER DIRECTIVE Health Care Decision (hx) 02/27/2015 AD SCHERER DIRECTIVE Health Care Decision (hx) 02/27/2015 AD SCHERER DIRECTIVE Care Teams Head Of Transport Logistics Relationship Specialty Start Date End Date Abiodun Wilkins MD [address] [place] [phone] PCP - General Rheumatology 08/01/21
[2024-09-19 07:53] LABS: MANUAL DIFF FLAG NO
[2024-09-19 08:28] LABS: Basophils Absolute Auto 0.1 X10*3/uL (0.0-0.2); Basophils Percent Auto 0.8 % (0-2); Eosinophils Absolute Auto 0.7 X10*3/uL (0.0-0.4); Eosinophils Percent Auto 10.8 % (0-4); Hematocrit 41.6 % (42.0-52.0); Hemoglobin 14.1 g/dl (14.0-18.0); Imm Gran Abs Auto 0.02 X10*3/uL (0.00-0.03); Imm Gran Pct Auto 0.3 % (0.0-0.4); Lymphocytes Absolute Auto 2.2 X10*3/uL (1.2-4.9); Lymphocytes Percent Auto 32.5 % (20-40); Mean Corpuscular HGB Conc 33.9 g/dl (31.0-36.0); Mean Corpuscular Hemoglobin 31.8 pg (27.0-33.0); Mean Corpuscular Volume 93.7 fL (80.0-98.0); Mean Platelet Volume 10.7 fL (9.4-12.4); Monocytes Absolute Auto 0.6 X10*3/uL (0.1-1.2); Monocytes Percent Auto 8.9 % (2-11); Neutrophils Absolute Auto 3.1 x10*3/uL (2.0-8.3); Neutrophils Percent Auto 46.7 % (45-73); Platelet Count 154 X10*3/uL (160-400); Red Blood Count 4.44 X10*6/uL (4.60-5.80); Red Cell Distribution Width 13.2 % (11.0-16.0); White Blood Count 6.6 X10*3/uL (4.8-10.8)
[2024-09-19 08:29] LABS: Appearance Urine Clear; Color Urine Yellow; Glucose Urine UA Negative (Negative); Leukocyte Esterase Urine Negative (Negative); Nitrite Urine Negative (Negative); PH 6.5 (5.0-9.0); Urine Blood Negative (Negative); Urine Ketones Negative (Negative); Urine Protein Negative (Neg-Trace)
[2024-09-19 08:57] LABS: B Type Natriuretic Peptide 48 pg/mL (<100)
[2024-09-19 08:58] LABS: Alanine Aminotransferase 20 U/L (0-40); Albumin Level 3.7 g/dL (3.5-5.0); Anion Gap 10 (12-20); Aspartate Amino Transferase 33 U/L (5-37); Bilirubin Total 0.4 mg/dL (0.0-1.0); Blood Urea Nitrogen 9 mg/dL (9-16); Calcium 8.6 mg/dL (8.4-10.2); Carbon Dioxide 30 mmol/L (22-29); Chloride 104 mmol/L (96-108); Cholesterol 171 mg/dL (<200); Estimated Glomerular Filt Rate > 60; Glucose Fasting 118 mg/dL (60-99); HDL Cholesterol 49 mg/dL (>40); LDL Cholesterol Calculated 102 mg/dL (<100); Potassium 3.9 mmol/L (3.3-5.1); Sodium 140 mmol/L (135-145); Total Protein 6.1 g/dL (6.5-8.0); Triglycerides 104 mg/dL (<150)
[2024-09-19 09:12] LABS: Alkaline Phosphatase 85 U/L (39-117); TSH reflex Free T4 2.69 uIU/mL (0.32-4.0); Vitamin D 25-OH Total 24.5 ng/mL (>30)
== END 2024-09-19 07:40 | disposition home or self-care (01) ==
LOC: HO.LAB 07:39
DX: E78.00 Pure hypercholesterolemia, unspecified (principal); G47.30 Sleep apnea, unspecified; I50.9 Heart failure, unspecified; R06.02 Shortness of breath; J45.909 Unspecified asthma, uncomplicated; F20.9 Schizophrenia, unspecified; F32.9 Major depressive disorder, single episode, unspecified
CPT/HCPCS: 36415; 80053; 80061; 81003; 82306; 83880; 84443; 85025

== ENCOUNTER 2024-10-10 08:48 | Outpatient (AMB) | payer OTHER, SELFPAY ==
--- OUTSIDE RECORDS SUMMARY | 2024-10-10 09:02 | XMS_ITS | Clinical Summary ---
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
[2024-10-10 09:17] VITALS: BP 154/88; PULSE 72; RESP 18; TEMP 36.7; O2SAT 96; BMI 32.3
--- NOTE | 2024-10-10 09:17 | A.OFFPC_ITS ---
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 Name: Used tablet: Derrick [id number] Accompanied by: Self / Same As Patient Allergies aspirin [ASPIRIN] Allergy (Severe, Verified 10/10/24 18:03) ANAPHYLAXIS ibuprofen [From MOTRIN] Allergy (Severe, Verified 10/10/24 18:03) ANAPHYLAXIS Penicillins Allergy (Severe, Verified 10/10/24 18:03) ANAPHYLAXIS asenapine [From SAPHRIS] Allergy (Intermediate, Verified 10/10/24 18:03) ITCHING influenza virus vaccine, specific [FLU VACCINE] Allergy (Intermediate, Verified 10/10/24 18:03) DIZZINESS/SOB/CP quetiapine [From SEROQUEL] Allergy (Intermediate, Verified 10/10/24 18:03) HTN morphine [MORPHINE] Allergy (Unknown, Verified 10/10/24 18:03) Unknown ChlorproMAZINE Allergy (Unknown, Uncoded 10/10/24 18:03) Unknown Clindamycin HCl Allergy (Unknown, Uncoded 10/10/24 18:03) Unknown Medication List - Last Reconciled 10/10/24 by AARON Tubbs acetaminophen ER (Arthritis Pain Relief (acetaminophen) ER) 650 mg PO BID PRN [Blood pressure machine As directed] blood sugar diagnostic (IroFit G2 strips) test daily blood-glucose meter (IroFit G2) As directed brexpiprazole 2 mg PO DAILY chlorpromazine 100 mg orally 1 tab orally at 4pm and at bedtime; cholecalciferol (vitamin D3) 25 mcg PO DAILY clonidine HCl 0.1 mg PO TID CPAP CPAP supplies CPAP (CPAP Machine/Device) As directed metoprolol succinate ER 50 mg PO DAILY mirtazapine 30 mg PO BEDTIME olanzapine (Zyprexa) 20 mg PO BEDTIME pantoprazole (Protonix) 20 mg PO BID polyethylene glycol 3350 (Miralax) 17 grams PO DAILY prazosin 5 mg PO BEDTIME trazodone 150 mg PO DAILY venlafaxine ER 150 mg PO DAILY Tobacco use date assessed: 10/10/24 Fall risk assessment: No Falls in past year Last assessed Fall Risk: 10/10/24 Dental Screening Dental Screen Date: 10/10/24 Did you have a dental visit in the last 12 months?: Yes Did you have a dental problem in the last 6 months where you did not have access to dental care?: No Was dental information given to patient?: Patient has dentist HPI Annual Exam HPI Details Annual physical Dentist: up to date Eye:up to date Snellen: Right: Left: Corrected vision: glassess STI screening: Colonoscopy: 20 years ago-will refer Pap Smer:n/a PHQ-9:n/a Flu:up to date COVID: x3 Tdap:2022 Diet:regular Exercise:push ups 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 The constipation has been managed with MiraLAX but was previously treated with Linzess; he last had a bowel movement two days ago. He reports nocturia but maintains adequate urine output post-prostate surgery. Right-sided abdominal pain is intermittent and related to an old surgery. He has been working on dietary modifications due to elevated cholesterol levels. The patient recently discovered a low vitamin D level and has been advised to supplement. He maintains regular dental and eye check-ups and practices regular physical activity. He has received three COVID-19 vaccinations and annual flu vaccines. HEALTH MAINTENANCE: - Routine dental examinations - Recent eye examination - Three doses of COVID-19 vaccine, last administered in 2022 - Routine influenza vaccinations - Monitoring and dietary modifications f or hypercholesterolemia - Advised vitamin D supplementation for deficiency [facility] Medical History Pre-op examination COVID-19 Nausea and vomiting Shortness of breath Anemia Asthma BPH (benign prostatic hyperplasia) Arthritis Back pain History of traumatic head injury Schizophrenia Depression Sleep apnea Elevated cholesterol HTN (hypertension) Surgical History History of surgery Hx of cataract extraction Hx of cystoscopy Hx of cholecystectomy History of gastric surgery History of esophagogastroduodenoscopy (EGD) H/O colonoscopy Family History Mother Cancer Father Prostate cancer Brother No problems noted. Sister Colon cancer Other Mental health disorder Social History Housing: Apartment Alcohol intake: never Patient Tobacco Use Status: Never used Tobacco Tobacco use type: Cigarette e-Cigarette/Vaping Use: Never Used Second Hand Smoke Exposure: No service: No Current occupational status: disabled Cognitive needs: No Hearing needs: No Vision needs: Yes Questionnaire PHQ-9 Over the last 2 weeks, how often have you been bothered by any of the following problems? 1. Little interest or pleasure in doing things: not at all 2. Feeling down, depressed, or hopeless: not at all 3. Trouble falling or staying asleep, or sleeping too much: more than half the days 4. Feeling tired or having little energy: more than half the days 5. Poor appetite or overeating: not at all 6. Feeling bad about yourself - or that you are a failure or have let yourself or your family down: not at all 7. Trouble concentrating on things, such as reading the newspaper or watching television: more than half the days 8. Moving or speaking so slowly that other people could have noticed. Or the opposite - being so fidgety or restless that you have been moving around a lot more than usual: more than half the days 9. Thoughts that you would be better off or of hurting yourself in some way: not at all Total score: 8 Depression Screening Interpretation: Positive Depression Screening Done: Yes Source: Developed by Drs. Sourav Dela Cruz, Camila Lau, Gerard Nuñze and colleagues, with an educational dc from [employer]. Thrive Questionnaire Date Thrive assessed: 10/10/24 I am a: Patient What is your living situation today?: I have a steady place to live Within the past 12 months, did the food you bought not last and you didn't have the money to get more?: Never true Within the past 12 months, did you worry whether your food would run out before you got money to buy more?: Never true Do you have trouble paying for medicines?: Yes Do you have trouble getting transportation to medical appointments?: No Do you have trouble paying your heating and electricity bill?: No Do you have trouble taking care of your child, family member or friend?: Yes Do you have trouble with day-to-day activities such as bathing, preparing meals, shopping, managing finances, etc.?: Yes Are you currently unemployed and looking for a job?: Yes Are you interested in more education?: No Please select the resources that you would like help with: None Currently or been in a relationship where the following occur: No concerns reported THRIVE Score: 0 AUDIT C Alcohol Use Questionnaire (AUDIT-C) 1. How often do you have a drink containing alcohol?: Never Total Score: 0 Score Reviewed/Action Taken: No BENY-7 AMB Questionnaire BENY-7 Date BENY - 7 assessed: 10/10/24 Feeling nervous, anxious, or on edge: 0 = Not at all Not being able to stop or control worryin = More than half the days Worrying too much about different things: 2 = More than half the days Trouble relaxin = More than half the days Being so restless that it is hard to sit still: 2 = More than half the days Becoming easily annoyed or irritable: 2 = More than half the days Feeling afraid as if something awful might happen: 2 = More than half the days Total BENY-7 score (0-4 normal; 5-9 mild; 10-14 moderate; 15-21 severe): 12 Source: Developed by Drs. Sourav Dela Cruz, Camila Lau, Gearrd Nuñez and colleagues, with an educational dc from [employer]. Review of Systems Const Details: - Gastrointestinal: Reports constipation, denies current abdominal pain - Genitourinary: Reports increased urinary frequency at night, denies dysuria - Musculoskeletal: Denies current muscle or joint pain - Respiratory: Denies shortness of breath - Cardiovascular: Denies chest pain Denies headache(s) Eyes Denies loss of vision ENT Denies vertigo, Denies dizziness, Denies headache(s) and Denies sore throat Card Denies chest pain, Denies leg edema and Denies lightheadedness Resp Denies cough, Denies hemoptysis and Denies wheezing GI Reports abdominal pain (The epigastric and right lower quadrant), Denies melena, Reports constipation, Denies diarrhea and Denies vomiting Denies dysuria, Reports nocturia (But improved significantly prostate surgery), Denies urinary frequency and Denies urinary urgency Musc Denies arthralgias, Denies joint swelling, Denies numbness and Denies tingling Neuro Denies Abnormal speech present, Denies behavioral changes, Denies vertigo, Denies dizziness, Denies headache(s), Denies loss of vision, Denies memory loss, Denies numbness and Denies tingling Psych Denies anxiety, Denies behavioral changes, Denies depression, Denies memory loss and Denies panic attacks Alvarez/Lymph Denies easy bleeding and Denies easy bruising Aller/Immun Denies wheezing Physical exam (Primary Care) Vital Signs: Last Vital Signs Temp 98.0 F 10/10/24 09:17 Pulse 72 10/10/24 09:17 Resp 18 10/10/24 09:17 BP 154/88 H 10/10/24 09:17 Pulse Ox 96 10/10/24 09:17 Oxygen Delivery Method Room Air 10/10/24 09:17 BMI result Body Mass Index 32.3 Tobacco/Smoking Status: Tobacco use Status Tobacco use date assessed 10/10/24 10/10/24 09:20 Patient Tobacco Use Status Never used Tobacco 10/10/24 09:20 Tobacco use type Cigarette 10/10/24 09:20 e-Cigarette/Vaping Use Never Used 10/10/24 09:20 PHQ-9: PHQ-9 Score PHQ-9: Total score 8 10/10/24 18:08 Depression Screening Interpretation: Positive Thrive Assessment: Date of Thrive Assessment Date Thrive assessed 10/10/24 10/10/24 09:20 Currently or been in a relationship where the following occur: No concerns reported Const General: healthy appearing, no acute distress, alert and awake Nutritional Appearance: well nourished Orientation/consciousness: oriented to person, oriented to place and oriented to time HENMT Ears: TM's normal bilaterally General nose exam: Normal nasal mucous membranes and turbinates present Eyes Conjunctivae: conjunctivae normal Sclerae: sclerae normal Pupils: Equal, round and reactive pupils present Neck Neck: Yes no lymphadenopathy and Yes no JVD Thyroid: Thyroid normal Carotids: no bruits Resp Effort & Inspection: normal respiratory effort and not tachypneic Auscultation: no crackles, no rales, no rhonchi and no wheezes Cardio Rate: regular rate Rhythm: regular rhythm Heart sounds: no murmurs and normal S1 and S2 GI Palpation (GI): Soft to palpation, Tenderness to palpation present (GI) in the epigastrum and in the RLQ, no hepatomegaly and no splenomegaly Auscultation: normal bowel sounds General: Yes no CVA tenderness Back/Spine/Pelvis Back: no CVA tenderness Skin General skin exam: no rashes or lesions noted and dry skin Neuro General: oriented to person, oriented to place, oriented to time and CN's II-XI intact bilaterally Cranial nerves: Yes Equal, round and reactive pupils present Speech: No Abnormal speech present Gait exam (Neuro): Normal gait present Motor exam (neuro): no tremor noted Extrem Right upper extremity: full ROM Left upper extremity: full ROM Right lower extremity: full ROM; no edema Left lower extremity: full ROM; no edema Psych Mental Status: mental status grossly normal Speech and movement: Normal speech and movement present Affect: normal affect Attitude: cooperative Thought process: Normal thought process present Results Reviewed Results Reviewed: Laboratory Tests 09/19/24 07:47 WBC 6.6 RBC 4.44 L Hgb 14.1 Hct 41.6 L MCV 93.7 MCH 31.8 Plt Count 154 L Sodium 140 Potassium 3.9 Chloride 104 Carbon Dioxide 30 H Anion Gap 10 L BUN 9 Creatinine 0.91 Estimated GFR > 60 Fasting Glucose 118 H Calcium 8.6 D Total Bilirubin 0.4 AST 33 ALT 20 Alkaline Phosphatase 85 B-Natriuretic Peptide 48 Total Protein 6.1 L Albumin 3.7 Triglycerides 104 Cholesterol 171 LDL Cholesterol, Calc 102 H HDL Cholesterol 49 25-OH Vitamin D Total 24.5 L TSH 2.69 Coding Level of Care Code Est Pt Prev Care >65y(94240) Diagnoses Annual physical exam Z00.00 Vitamin D deficiency E55.9 Constipation, unspecified constipation type K59.00 Constipation type: unspecified constipation type Abdominal pain, unspecified abdominal location R10.9 Abdominal location: unspecified location Family history of colon cancer Z80.0 Hypercholesteremia E78.00 Sleep apnea, unspecified type G47.30 Sleep apnea type: unspecified type Congestive heart failure, unspecified HF chronicity, unspecified heart failure type I50.9 Heart failure chronicity: unspecified Heart failure type: unspecified Asthma, unspecified asthma severity, unspecified whether complicated, unspecified whether persistent J45.909 Asthma complication type: unspecified Asthma persistence: unspecified Asthma severity: unspecified severity Iron deficiency anemia, unspecified iron deficiency anemia type D50.9 Anemia type: iron deficiency Iron deficiency anemia type: unspecified iron deficiency Hypertension, unspecified type I10 Hypertension type: unspecified Schizophrenia, unspecified type F20.9 Schizophrenia type: unspecified Depression, unspecified depression type F32.A Depression Type: unspecified Time Spent (min) 41 Assessment & Plan Assessment & Plan (1) Annual physical exam: Code(s): Z00.00 - Encounter for general adult medical examination without abnormal findings Category: Medical Plan: Preventative guidelines and recent labs reviewed with patient. He is due for colonoscopy. Up-to-date on eye exam/dental exam/vaccinations. (2) Vitamin D deficiency: Code(s): E55.9 - Vitamin D deficiency, unspecified Category: Medical Plan: Vitamin-D level is low. Reports pain too much for vitamin-D from pharmacy. Encouraged to purchase vitamin D3 OTC (3) Constipation: Code(s): K59.00 - Constipation, unspecified Category: Medical Qualifiers: Constipation type: unspecified constipation type Qualified Code(s): K59.00 - Constipation, unspecified Plan: The patient used to take Linzess. Reports stopped taking it due to diarrhea. MiraLax 17 g ordered. Encouraged p.o. fluids (4) Abdominal pain: Code(s): R10.9 - Unspecified abdominal pain Category: Medical Qualifiers: Abdominal location: unspecified location Qualified Code(s): R10.9 - Unspecified abdominal pain Plan: Complain of abdominal pain in the epigastric and right lower quadrant areas. Abdominal ultrasound ordered. (5) Family history of colon cancer: Comment: sister in 50's Code(s): Z80.0 - Family history of malignant neoplasm of digestive organs Category: Medical Plan: GI referral placed. Patient reports that his last colonoscopy was about 20 years ago. (6) Hypercholesteremia: Code(s): E78.00 - Pure hypercholesterolemia, unspecified Category: Medical Plan: Patient LDL is slightly elevated at 102. Reinforced low- cholesterol/carbohydrate diet and activity as tolerated (7) Sleep apnea: Comment: uses CPAP Code(s): G47.30 - Sleep apnea, unspecified Category: Medical Qualifiers: Sleep apnea type: unspecified type Qualified Code(s): G47.30 - Sleep apnea, unspecified Plan: Continue CPAP (8) Congestive heart failure: Code(s): I50.9 - Heart failure, unspecified Category: Medical Qualifiers: Heart failure chronicity: unspecified Heart failure type: unspecified Qualified Code(s): I50.9 - Heart failure, unspecified Plan: History of heart failure has not followed up with Cardiology in a while. Apparently the patient has not been taking his metoprolol ER 50 mg. Discussed with the patient the importance of taking this medication and the risk of leaving in his blood pressure in a prolonged elevated state. The patient was referred to Cardiology on previous visit and has an appointment pending. (9) Asthma: Code(s): J45.909 - Unspecified asthma, uncomplicated Category: Medical Qualifiers: Asthma complication type: unspecified Asthma persistence: unspecified Asthma severity: unspecified severity Qualified Code(s): J45.909 - Unspecified asthma, uncomplicated Plan: The patient was ordered Albuterol sulfate sulfate 90 mcg inhaler. Apparently, the patient reports that he is not taking this medication and it was canceled by the MA during checking. However, the patient has the inhaler at home and does not want to be refilled at this time. The patient will call the office if he wants the medication to be reordered. (10) Anemia: Code(s): D64.9 - Anemia, unspecified Category: Medical Qualifiers: Anemia type: iron deficiency Iron deficiency anemia type: unspecified iron deficiency Qualified Code(s): D50.9 - Iron deficiency anemia, unspecified Plan: The patient has chronic anemia and was taking iron tablets. Similarly, the patient had this medication canceled out of his list of medication reporting that he is not taking it at this time. His anemia is stable at this time, we will reassess at his next appointment with his scheduled blood work. (11) HTN (hypertension): Code(s): I10 - Essential (primary) hypertension Category: Medical Qualifiers: Hypertension type: unspecified Qualified Code(s): I10 - Essential (primary) hypertension Plan: Blood pressure elevated in office. Refill metoprolol 50 mg ER daily. Reinforced low-sodium diet. (12) Schizophrenia: Code(s): F20.9 - Schizophrenia, unspecified Category: Medical Qualifiers: Schizophrenia type: unspecified Qualified Code(s): F20.9 - Schizophrenia, unspecified Plan: Continue Zyprexa 20 mg at bedtime, prazosin 5 mg at bedtime, paroxysmal positional 2 mg daily, and chlorpromazine as scheduled Follow up with Psychiatry (13) Depression: Code(s): F32.9 - Major depressive disorder, single episode, unspecified Category: Medical Qualifiers: Depression Type: unspecified Qualified Code(s): F32.A - Depression, unspecified Plan: Encouraged CBT Continue dexamethasone 2 mg daily, and mirtazapine 30 mg at bedtime, venlafaxine ER 150 mg daily Denies SI/HI Orders: Orders Complete Blood Count Auto Diff 3 Months D64.9 - Anemia, unspecified, E55.9 - Vitamin D deficiency, unspecified, E78.00 - Pure hypercholesterolemia, unspecified, F20.9 - Schizophrenia, unspecified, I10 - Essential (primary) hypertension, I50.9 - Heart failure, unspecified TSH reflex Free T4 3 Months D64.9 - Anemia, unspecified, E55.9 - Vitamin D deficiency, unspecified, E78.00 - Pure hypercholesterolemia, unspecified, F20.9 - Schizophrenia, unspecified, I10 - Essential (primary) hypertension, I50.9 - Heart failure, unspecified Hemoglobin A1c 3 Months D64.9 - Anemia, unspecified, E55.9 - Vitamin D deficiency, unspecified, E78.00 - Pure hypercholesterolemia, unspecified, F20.9 - Schizophrenia, unspecified, I10 - Essential (primary) hypertension, I50.9 - Heart failure, unspecified Vitamin D 25-OH Total 3 Months D64.9 - Anemia, unspecified, E55.9 - Vitamin D deficiency, unspecified, E78.00 - Pure hypercholesterolemia, unspecified, F20.9 - Schizophrenia, unspecified, I10 - Essential (primary) hypertension, I50.9 - Heart failure, unspecified US abdomen complete Today R10.9 - Unspecified abdominal pain Comprehensive [place]. Panel Fast 3 Months D64.9 - Anemia, unspecified, E55.9 - Vitamin D deficiency, unspecified, E78.00 - Pure hypercholesterolemia, unspecified, F20.9 - Schizophrenia, unspecified, I10 - Essential (primary) hypertension, I50.9 - Heart failure, unspecified Lipid Panel 3 Months D64.9 - Anemia, unspecified, E55.9 - Vitamin D deficiency, unspecified, E78.00 - Pure hypercholesterolemia, unspecified, F20.9 - Schizophrenia, unspecified, I10 - Essential (primary) hypertension, I50.9 - Heart failure, unspecified UA CC w/rflx Micro + Cult 3 Months D64.9 - Anemia, unspecified, E55.9 - Vitamin D deficiency, unspecified, E78.00 - Pure hypercholesterolemia, unspecified, F20.9 - Schizophrenia, unspecified, I10 - Essential (primary) hypertension, I50.9 - Heart failure, unspecified Referrals Gastroenterology Referral Z12.11 - Encounter for screening for malignant neoplasm of colon, Z12.12 - Encounter for screening for malignant neoplasm of rectum Medications: New polyethylene glycol 3350 (Miralax) 17 grams PO DAILY 119 grams 3RF K59.00 - Constipation, unspecified cholecalciferol (vitamin D3) 25 mcg PO DAILY 90 caps 2RF metoprolol succinate ER 50 mg PO DAILY 90 tabs 3RF
== END 2024-10-10 10:10 | disposition home or self-care (01) ==
LOC: HO.HMCH 08:49
PROVIDERS: PCP Internal Medicine
DX: Z00.00 Encounter for general adult medical examination without abnormal findings (principal); I11.0 Hypertensive heart disease with heart failure; F20.9 Schizophrenia, unspecified; I50.9 Heart failure, unspecified; E55.9 Vitamin D deficiency, unspecified; K59.00 Constipation, unspecified; R10.9 Unspecified abdominal pain; Z80.0 Family history of malignant neoplasm of digestive organs; E78.00 Pure hypercholesterolemia, unspecified; G47.30 Sleep apnea, unspecified; J45.909 Unspecified asthma, uncomplicated; D50.9 Iron deficiency anemia, unspecified

== ENCOUNTER → 2024-10-10 08:48 | Outpatient (BNVA) | payer MEDICARE, SELFPAY | PROVIDERS: PCP Internal Medicine ==

== ENCOUNTER 2024-10-24 07:36 | Outpatient (REF) | payer OTHER, SELFPAY ==
--- NOTE | ~2024-10-24 | US_ITS ---
CLINICAL HISTORY: R10.9 - Unspecified abdominal pain --- Additional Notes or Special Instructions: ep igastric and RLQ pain US abdomen complete Comparison: None Findings: The visualized pancreas is normal. The aorta and inferior vena cava are normal caliber. The appearance of the liver suggests fatty infiltration. There is no intrahepatic bile duct dilatation. The common duct is 3.0 mm in diameter. There are no abnormal findings in the gallbladder fossa. There is no sonographic Gusman sign. The main portal vein is antegrade. The right kidney is 10.7 cm in length. The left kidney is 10.8 cm in length. The spleen is normal. No ascites. IMPRESSION: 1. Hepatic steatosis. This document has been electronically signed by: Abiodun Calabrese MD on 10/24/2024 17:30:18
--- OUTSIDE RECORDS SUMMARY | 2024-10-24 07:38 | XMS_ITS | Clinical Summary ---
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
== END 2024-10-24 07:37 | disposition home or self-care (01) ==
LOC: HO.US 07:36
PROVIDERS: PCP Internal Medicine
DX: R10.9 Unspecified abdominal pain (principal)
CPT/HCPCS: 76700

== ENCOUNTER → 2024-10-24 07:39 | Outpatient (BNV) | payer OTHER, SELFPAY | PROVIDERS: PCP Internal Medicine; Visit Provider Specialist | DX: R10.9 Unspecified abdominal pain (principal) | CPT/HCPCS: 76700 ==

== ENCOUNTER 2024-12-03 08:38 | Outpatient (AMB) | payer MEDICARE, SELFPAY ==
--- OUTSIDE RECORDS SUMMARY | 2024-12-03 08:42 | XMS_ITS | Clinical Summary ---
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
[2024-12-03 08:47] VITALS: BP 140/68; PULSE 67; BMI 33.0
--- NOTE | 2024-12-03 08:47 | A.OFFVIS_ITS ---
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 Population Health Manager Required: Yes Population Health Manager Name: [id number] Allergies aspirin (ASPIRIN) Allergy (Severe, Verified 10/10/24 18:03) ANAPHYLAXIS ibuprofen (From MOTRIN) Allergy (Severe, Verified 10/10/24 18:03) ANAPHYLAXIS Penicillins Allergy (Severe, Verified 10/10/24 18:03) ANAPHYLAXIS asenapine (From SAPHRIS) Allergy (Intermediate, Verified 10/10/24 18:03) ITCHING influenza virus vaccine, specific (FLU VACCINE) Allergy (Intermediate, Verified 10/10/24 18:03) DIZZINESS/SOB/CP quetiapine (From SEROQUEL) Allergy (Intermediate, Verified 10/10/24 18:03) HTN morphine (MORPHINE) Allergy (Unknown, Verified 10/10/24 18:03) Unknown ChlorproMAZINE Allergy (Unknown, Uncoded 10/10/24 18:03) Unknown Clindamycin HCl Allergy (Unknown, Uncoded 10/10/24 18:03) Unknown Medication List - Last Reconciled 12/03/24 by Judah Bautista MD acetaminophen ER (Arthritis Pain Relief (acetaminophen) ER) 650 mg PO BID PRN [Blood pressure machine As directed] blood sugar diagnostic (Saberr G2 strips) test daily blood-glucose meter (Saberr G2) As directed brexpiprazole 2 mg PO DAILY chlorpromazine 100 mg orally 1 tab orally at 4pm and at bedtime; cholecalciferol (vitamin D3) 25 mcg PO DAILY clonidine HCl 0.1 mg PO TID CPAP CPAP supplies CPAP (CPAP Machine/Device) As directed metoprolol succinate ER 50 mg PO DAILY mirtazapine 30 mg PO BEDTIME olanzapine (Zyprexa) 20 mg PO BEDTIME pantoprazole (Protonix) 20 mg PO BID polyethylene glycol 3350 (Miralax) 17 grams PO DAILY prazosin 5 mg PO BEDTIME trazodone 150 mg PO DAILY venlafaxine ER 150 mg PO DAILY HPI Comments Details: Bill is here for cardiac consultation. Previously seen at [facility]. Those records were reviewed. It seems there is a question of bradycardia/questionable heart failure. With regard to the bradycardia, patient has brought a list and that has beta-blockers listed. Hence not entirely clear what this is about. With regard to question of congestive heart failure, he is not on any regular diuretics. He denies any exertional shortness of breath and there is no overt swelling of extremities. He denies any history of coronary disease, myocardial infarction or cardiomyopathy in the past. Random episodes of dizziness. Sounds very nonspecific. [facility] Medical History Pre-op examination COVID-19 Nausea and vomiting Shortness of breath Anemia Asthma BPH (benign prostatic hyperplasia) Arthritis Back pain History of traumatic head injury Schizophrenia Depression Sleep apnea Elevated cholesterol HTN (hypertension) Surgical History History of surgery Hx of cataract extraction Hx of cystoscopy Hx of cholecystectomy History of gastric surgery History of esophagogastroduodenoscopy (EGD) H/O colonoscopy Family History Mother Cancer Father Prostate cancer Brother No problems noted. Sister Colon cancer Other Mental health disorder Social History Housing: Apartment Alcohol intake: never Patient Tobacco Use Status: Never used Tobacco Tobacco use type: Cigarette e-Cigarette/Vaping Use: Never Used Second Hand Smoke Exposure: No service: No Current occupational status: disabled Cognitive needs: No Hearing needs: No Vision needs: Yes Review of Systems Const Denies weakness ENT Reports dizziness Card Denies chest pain, Denies chest pain with activity, Denies syncope, Denies rapid heart rate, Denies pedal edema, Denies edema, Denies leg edema, Denies lightheadedness, Denies palpitations, Denies dyspnea, Denies dyspnea on exertion and Denies orthopnea Resp Denies cough, Denies dyspnea and Denies dyspnea on exertion GI Denies hematochezia and Denies change in stool character Musc Denies abnormal gait, Denies muscle cramps, Denies muscle weakness, Denies numbness, Denies radiating pain into limb and Denies tingling Neuro Denies abnormal gait, Reports dizziness, Denies syncope, Denies numbness, Denies tingling and Denies weakness Endo Denies palpitations Physical Exam Vital Signs: Last Vital Signs Pulse 67 12/03/24 08:47 BP 140/68 H 12/03/24 08:47 BMI result Body Mass Index 33.0 Const General: comfortable and no acute distress Orientation/consciousness: patient oriented x3 HEENT Other: Unremarkable Head: Yes normal to inspection Neck Neck: Yes normal visual inspection Chest Chest palpation & inspection: normal inspection of the chest Resp Auscultation: clear to auscultation bilaterally Cardio Palpation: normal PMI Heart sounds: S1 normal heart sound present, S2 normal heart sound present, no gallops, no murmurs and no rubs GI Palpation (GI): Soft to palpation Back/Spine/Pelvis Other: unremarkable Skin General skin exam: no rashes or lesions noted Neuro General: patient oriented x3 Extrem General: Yes normal to inspection Psych Mental Status: mental status grossly normal Assessment & Plan Assessment & Plan (1) Bradycardia: Code(s): R00.1 - Bradycardia, unspecified Category: Medical (2) Congestive heart failure: Code(s): I50.9 - Heart failure, unspecified Category: Medical Qualifiers: Heart failure chronicity: unspecified Heart failure type: unspecified Qualified Code(s): I50.9 - Heart failure, unspecified Plan Available cardiac data reviewed. Coronary CTA from 2020-no hemodynamically significant CAD. A prior echocardiogram from [facility] with LVEF of 60-65%, stated normal diastolic function, normal left atrial size and no significant valvular findings. Overall, vague descriptions of bradycardia and congestive heart failure but no objective data to support this. We will check a Holter to see if indeed there is any profound bradycardia or pauses. Any case, even if present, the 1st step would be to actually stop the beta-blockers. With regard to congestive heart failure, no clinical evidence of the same. We will recheck an echocardiogram. Discussion Notes I discussed with the patient the need for further evaluation of his bradycardia through an echocardiogram and Holter monitoring. The patient was informed about the purpose of these tests to monitor heart function and rhythm. Patient was informed and verbally consented to the use of an ambient scribe for clinic note documentation during this visit. Orders: Orders ECG 3 day holter monitor Today R00.1 - Bradycardia, unspecified CA echo transthoracic complete Today I50.9 - Heart failure, unspecified Patient Instructions: - Follow up with the ordered echocardiogram and Holter monitor tests. - Report any new or worsening symptoms to the healthcare provider immediately. Coding Level of Care Code New Pt Level 3 (55039) Diagnoses Bradycardia R00.1 Congestive heart failure, unspecified HF chronicity, unspecified heart failure type I50.9 Heart failure chronicity: unspecified Heart failure type: unspecified
== END 2024-12-03 09:12 | disposition home or self-care (01) ==
LOC: HO.HCS 08:39
PROVIDERS: Visit Provider Internal Medicine
DX: R00.1 Bradycardia, unspecified (principal); I50.9 Heart failure, unspecified
CPT/HCPCS: 99203

== ENCOUNTER → 2024-12-03 08:38 | Outpatient (BNVA) | payer MEDICARE, SELFPAY | PROVIDERS: Visit Provider Internal Medicine | DX: R00.1 Bradycardia, unspecified (principal); I50.9 Heart failure, unspecified; Z79.899 Other long term (current) drug therapy | CPT/HCPCS: 99202 ==

== ENCOUNTER 2025-01-02 07:14 | Outpatient (REF) | payer MEDICARE, SELFPAY ==
--- OUTSIDE RECORDS SUMMARY | 2025-01-02 07:18 | XMS_ITS | Patient Health Record ---
Author Organization [facility] Address [address] [place] [address] Care Team Providers Care Athlete Marketing Agent Name Role Phone Tanner CHIU, Debbie Primary Care Provider Unavail able Sourav Pendleton Unavailable [phone] Allergies Allergen (clinical drug ingredient) Drug/Non Drug Allergy documented on EMR Reaction Allergy Type Onset Date Status aspirin Aspirin Unknown Drug Allergy Active Reason For Referral No Information Medications Medication SIG (Take, Route, Frequency, Duration) Notes Start Date End Date Status S[employer] Active traZODone HCl 100 MG 1 tablet at bedtime Orally Once a day Active Cholestyramine 4 GM/DOSE 1 scoop in a gl ass of water or oj Orally QD or BID for diarrhea for 30 day(s) 03/03/2014 Active Venlafaxine HCl ER 150 MG 1 capsule with food Orally Once a day Active VESIcare 5 MG 1 tablet Orally Once a day Active Problems Problem Type SNOMED Code ICD Code Onset Dates Problem Status W/U Status Risk Notes Problem Diarrhea (82271593) Diarrhea (787.91) Active confirmed Plan Of Treatment No Information Insurance Providers Payer Name Payer Address Payer Phone Subscriber Number Group Number Insured Name Patient Relationship to Insured Coverage Start Date Coverage End Date [employer] [id number] [place] [address] [id number] ROXANN SMITH Self - patient is the insured Medical (General) History Medical History History ICD Code back pain anxiety depression schizophrenia colon polyps 02/2007-neg colonoscopy excep t for hyperplastic polyps and neg EGD except for a HH Denies NC,DM,CVA,Lung disease,renal dise ase Surgical History Surgery Date(Month/Year) Ulcer surgery with a B-I > 30 yrs ago [facility] Back surgery
[2025-01-02 07:30] LABS: MANUAL DIFF FLAG NO
[2025-01-02 08:14] LABS: Hematocrit 42.6 % (42.0-52.0); Hemoglobin 15.1 g/dl (14.0-18.0); Imm Gran Abs Auto 0.03 X10*3/uL (0.00-0.03); Imm Gran Pct Auto 0.4 % (0.0-0.4); Lymphocytes Absolute Auto 2.4 X10*3/uL (1.2-4.9); Mean Corpuscular HGB Conc 35.4 g/dl (31.0-36.0); Mean Corpuscular Hemoglobin 32.2 pg (27.0-33.0); Mean Corpuscular Volume 90.8 fL (80.0-98.0); NRBC Abs Auto 0.000 X10*3/uL (0.0-0.012); NRBC Pct Auto 0.0 /100WBC (0.0-0.2); Platelet Count 170 X10*3/uL (160-400); Red Blood Count 4.69 X10*6/uL (4.60-5.80); White Blood Count 7.5 X10*3/uL (4.8-10.8)
[2025-01-02 08:26] LABS: Hemoglobin A1C 161.5548 umol/L; Total Hemoglobin (HGBA1C) 4010.6517 umol/L
[2025-01-02 08:28] LABS: Appearance Urine Clear; Glucose Urine UA Negative (Negative); PH 6.0 (5.0-9.0); Specific Gravity - Urine 1.015 (1.005-1.025)
[2025-01-02 08:57] LABS: Alanine Aminotransferase 24 U/L (0-40); Albumin Level 4.3 g/dL (3.5-5.0); Alkaline Phosphatase 69 U/L (39-117); Anion Gap 11 (12-20); Aspartate Amino Transferase 27 U/L (5-37); Blood Urea Nitrogen 13 mg/dL (9-16); Calcium 8.6 mg/dL (8.4-10.2); Carbon Dioxide 28 mmol/L (22-29); Chloride 105 mmol/L (96-108); Cholesterol 171 mg/dL (<200); Estimated Glomerular Filt Rate > 60; HDL Cholesterol 47 mg/dL (>40); Potassium 3.5 mmol/L (3.3-5.1); Sodium 140 mmol/L (135-145); Total Protein 6.4 g/dL (6.5-8.0); Triglycerides 127 mg/dL (<150)
== END 2025-01-02 07:15 | disposition home or self-care (01) ==
LOC: HO.LAB 07:14
DX: I11.0 Hypertensive heart disease with heart failure (principal); I50.9 Heart failure, unspecified; E78.00 Pure hypercholesterolemia, unspecified; F20.9 Schizophrenia, unspecified; D64.9 Anemia, unspecified; E55.9 Vitamin D deficiency, unspecified
CPT/HCPCS: 36415; 80053; 80061; 81003; 82306; 83036; 84443; 85025

== ENCOUNTER 2025-01-09 09:02 | Outpatient (AMB) | payer MEDICARE, SELFPAY ==
[2025-01-09 09:03] VITALS: BP 160/70; PULSE 54; RESP 18; TEMP 35.5; O2SAT 96; BMI 32.0
--- NOTE | 2025-01-09 09:03 | A.OFFPC_ITS ---
Vital Signs 01/09/25 09:03 01/09/25 09:41 Height 5 ft 5 in Weight 192 lb 2 oz BMI 32.0 BP 160/70 H 156/88 H Blood Pressure Location Lt brachial Lt brachial Position Sitting Sitting Respiration 18 Pulse 54 Pulse Source Pulse Oximeter Temp 96 F L Temp Source Temporal Artery Scan Pulse Oximetry (%) 96 Oxygen Delivery Method Room Air Intake Visit Reasons: htn/DM/anemia Industrial Relations Commissioner Required: Yes Industrial Relations Commissioner Language: [employer]enger T[employer] Inspector Name: [id number]/Emperatriz Accompanied by: Self / Same As Patient Allergies aspirin (ASPIRIN) Allergy (Severe, Verified 01/09/25 09:38) ANAPHYLAXIS ibuprofen (From MOTRIN) Allergy (Severe, Verified 01/09/25 09:04) ANAPHYLAXIS Penicillins Allergy (Severe, Verified 01/09/25 09:04) ANAPHYLAXIS asenapine (From SAPHRIS) Allergy (Intermediate, Verified 01/09/25 09:04) ITCHING influenza virus vaccine, specific (FLU VACCINE) Allergy (Intermediate, Verified 01/09/25 09:04) DIZZINESS/SOB/CP quetiapine (From SEROQUEL) Allergy (Intermediate, Verified 01/09/25 09:04) HTN morphine (MORPHINE) Allergy (Unknown, Verified 01/09/25 09:04) Unknown ChlorproMAZINE Allergy (Unknown, Uncoded 10/10/24 18:03) Unknown Clindamycin HCl Allergy (Unknown, Uncoded 10/10/24 18:03) Unknown Medication List - Last Reconciled 01/09/25 by AARON Tubbs acetaminophen ER (Arthritis Pain Relief (acetaminophen) ER) 650 mg PO BID PRN amlodipine 5 mg PO DAILY [Blood pressure machine As directed] blood sugar diagnostic (Daily Deals for Moms G2 strips) test daily blood-glucose meter (Daily Deals for Moms G2) As directed brexpiprazole 2 mg PO DAILY chlorpromazine 100 mg orally 1 tab orally at 4pm and at bedtime; cholecalciferol (vitamin D3) 25 mcg PO DAILY clonidine HCl 0.1 mg PO TID CPAP CPAP supplies CPAP (CPAP Machine/Device) As directed metoprolol succinate ER 50 mg PO DAILY mirtazapine 30 mg PO BEDTIME olanzapine (Zyprexa) 20 mg PO BEDTIME pantoprazole (Protonix) 20 mg PO BID polyethylene glycol 3350 (Miralax) 17 grams PO DAILY prazosin 5 mg PO BEDTIME trazodone 150 mg PO DAILY venlafaxine ER 150 mg PO DAILY Tobacco use date assessed: 01/09/25 Fall risk assessment: No Falls in past year Last assessed Fall Risk: 01/09/25 Dental Screening Dental Screen Date: 01/09/25 Did you have a dental visit in the last 12 months?: Yes Did you have a dental problem in the last 6 months where you did not have access to dental care?: No Was dental information given to patient?: Patient has dentist HPI htn/DM/anemia HPI Details The patient is a 74-year-old male presenting with abdominal pain and hypertension management. The abdominal pain has been present for approximately four months, described as intermittent and radiating to the leg. The pain is located in the right lower area. The patient reports the pain comes and goes, suggesting it is not related to the appendix. The patient experiences gastrointestinal symptoms, including diarrhea in the mornings followed by constipation later in the day. These symptoms have been consistent, with diarrhea occurring after breakfast and constipation following subsequent meals. The patient also reports symptoms of gastroesophageal reflux disease, including a burning sensation daily. The patient is taking Protonix but may not be adhering to the recommended timing of administration, which could affect symptom control. Hypertension is noted, with blood pressure readings remaining high despite medication adherence. The patient monitors blood pressure at home, which was also elevated this morning. The patient has a GI appointment coming up to reevaluate his complaints. [facility] Medical History Pre-op examination COVID-19 Nausea and vomiting Shortness of breath Anemia Asthma BPH (benign prostatic hyperplasia) Arthritis Back pain History of traumatic head injury Schizophrenia Depression Sleep apnea Elevated cholesterol HTN (hypertension) Surgical History History of surgery Hx of cataract extraction Hx of cystoscopy Hx of cholecystectomy History of gastric surgery History of esophagogastroduodenoscopy (EGD) H/O colonoscopy Family History Mother Cancer Father Prostate cancer Brother No problems noted. Sister Colon cancer Other Mental health disorder Social History Housing: Apartment Alcohol intake: never Patient Tobacco Use Status: Never used Tobacco Tobacco use type: Cigarette e-Cigarette/Vaping Use: Never Used Second Hand Smoke Exposure: No service: No Current occupational status: disabled Cognitive needs: No Hearing needs: No Vision needs: Yes Questionnaire PHQ-9 Over the last 2 weeks, how often have you been bothered by any of the following problems? 1. Little interest or pleasure in doing things: not at all 2. Feeling down, depressed, or hopeless: not at all 3. Trouble falling or staying asleep, or sleeping too much: more than half the days 4. Feeling tired or having little energy: more than half the days 5. Poor appetite or overeating: not at all 6. Feeling bad about yourself - or that you are a failure or have let yourself or your family down: not at all 7. Trouble concentrating on things, such as reading the newspaper or watching television: more than half the days 8. Moving or speaking so slowly that other people could have noticed. Or the opposite - being so fidgety or restless that you have been moving around a lot more than usual: more than half the days 9. Thoughts that you would be better off or of hurting yourself in some way: not at all Total score: 8 Depression Screening Interpretation: Positive Depression Screening Done: Yes Source: Developed by Drs. Sourav Dela Cruz, Camila Lau, Gerard Nuñez and colleagues, with an educational dc from [employer]. Thrive Questionnaire Date Thrive assessed: 01/09/25 I am a: Patient What is your living situation today?: I have a steady place to live Within the past 12 months, did the food you bought not last and you didn't have the money to get more?: Never true Within the past 12 months, did you worry whether your food would run out before you got money to buy more?: Never true Do you have trouble paying for medicines?: Yes Do you have trouble getting transportation to medical appointments?: No Do you have trouble paying your heating and electricity bill?: No Do you have trouble taking care of your child, family member or friend?: Yes Do you have trouble with day-to-day activities such as bathing, preparing meals, shopping, managing finances, etc.?: Yes Are you currently unemployed and looking for a job?: Yes Are you interested in more education?: No Please select the resources that you would like help with: None Currently or been in a relationship where the following occur: No concerns reported THRIVE Score: 0 AUDIT C Alcohol Use Questionnaire (AUDIT-C) 1. How often do you have a drink containing alcohol?: Never 3. How often do you have six or more drinks on one occasion?: Never Total Score: 0 Score Reviewed/Action Taken: No BENY-7 AMB Questionnaire BENY-7 Date BENY - 7 assessed: 01/09/25 Feeling nervous, anxious, or on edge: 0 = Not at all Not being able to stop or control worryin = More than half the days Worrying too much about different things: 2 = More than half the days Trouble relaxin = More than half the days Being so restless that it is hard to sit still: 2 = More than half the days Becoming easily annoyed or irritable: 2 = More than half the days Feeling afraid as if something awful might happen: 2 = More than half the days Total BENY-7 score (0-4 normal; 5-9 mild; 10-14 moderate; 15-21 severe): 12 Source: Developed by Drs. Sourav Dela Cruz, Camila Lau, Gerard Nuñez and colleagues, with an educational dc from [employer]. Review of Systems Const Denies headache(s) Eyes Denies loss of vision ENT Denies vertigo, Denies dizziness, Denies headache(s) and Denies sore throat Card Denies chest pain, Denies leg edema and Denies lightheadedness Resp Denies cough, Denies hemoptysis and Denies wheezing GI Denies abdominal pain, Denies melena, Denies constipation, Denies diarrhea and Denies vomiting Denies dysuria, Denies urinary frequency and Denies urinary urgency Musc Denies arthralgias, Denies joint swelling, Denies numbness and Denies tingling Neuro Denies Abnormal speech present, Denies behavioral changes, Denies vertigo, Denies dizziness, Denies headache(s), Denies loss of vision, Denies memory loss, Denies numbness and Denies tingling Psych Denies anxiety, Denies behavioral changes, Denies depression, Denies memory loss and Denies panic attacks Alvarez/Lymph Denies easy bleeding and Denies easy bruising Aller/Immun Denies wheezing Physical exam (Primary Care) Vital Signs: Last Vital Signs Temp 96 F L 01/09/25 09:03 Pulse 54 01/09/25 09:03 Resp 18 01/09/25 09:03 BP 156/88 H 01/09/25 09:41 Pulse Ox 96 01/09/25 09:03 Oxygen Delivery Method Room Air 01/09/25 09:03 BMI result Body Mass Index 32.0 Tobacco/Smoking Status: Tobacco use Status Tobacco use date assessed 01/09/25 01/09/25 09:12 Patient Tobacco Use Status Never used Tobacco 01/09/25 09:12 Tobacco use type Cigarette 01/09/25 09:12 e-Cigarette/Vaping Use Never Used 01/09/25 09:12 PHQ-9: PHQ-9 Score PHQ-9: Total score 8 01/09/25 15:30 Depression Screening Interpretation: Positive Thrive Assessment: Date of Thrive Assessment Date Thrive assessed 01/09/25 01/09/25 09:12 Currently or been in a relationship where the following occur: No concerns reported Const General: healthy appearing, no acute distress, alert and awake Nutritional Appearance: well nourished Orientation/consciousness: oriented to person, oriented to place and oriented to time HENMT Ears: TM's normal bilaterally General nose exam: Normal nasal mucous membranes and turbinates present Eyes Conjunctivae: conjunctivae normal Sclerae: sclerae normal Pupils: Equal, round and reactive pupils present Neck Neck: Yes no lymphadenopathy and Yes no JVD Thyroid: Thyroid normal Carotids: no bruits Resp Effort & Inspection: normal respiratory effort and not tachypneic Auscultation: no crackles, no rales, no rhonchi and no wheezes Cardio Rate: regular rate Rhythm: regular rhythm Heart sounds: no murmurs and normal S1 and S2 GI Palpation (GI): Soft to palpation, nontender, no hepatomegaly and no splenomegaly Auscultation: normal bowel sounds Skin General skin exam: no rashes or lesions noted and dry skin Neuro General: oriented to person, oriented to place and oriented to time Cranial nerves: Yes Equal, round and reactive pupils present Speech: No Abnormal speech present Gait exam (Neuro): Normal gait present Motor exam (neuro): no tremor noted Extrem Right upper extremity: full ROM Left upper extremity: full ROM Right lower extremity: full ROM; no edema Left lower extremity: full ROM; no edema Psych Mental Status: mental status grossly normal Speech and movement: Normal speech and movement present Affect: normal affect Attitude: cooperative Thought process: Normal thought process present Results Reviewed Results Reviewed: Laboratory Tests 01/02/25 01/02/25 07:26 07:28 WBC 7.5 RBC 4.69 Hgb 15.1 Hct 42.6 MCH 32.2 MCHC 35.4 RDW 13.2 Plt Count 170 MPV 10.8 Sodium 140 Potassium 3.5 Chloride 105 Carbon Dioxide 28 Anion Gap 11 L BUN 13 Creatinine 1.10 Estimated GFR > 60 Fasting Glucose 94 Estimat Average Glucose 120 Hemoglobin A1c % 5.8 Calcium 8.6 Total Bilirubin 1.0 AST 27 ALT 24 Alkaline Phosphatase 69 Total Protein 6.4 L Albumin 4.3 Triglycerides 127 Cholesterol 171 LDL Cholesterol, Calc 99 HDL Cholesterol 47 25-OH Vitamin D Total 35.8 TSH 1.49 Urine Color Yellow Urine Appearance Clear Urine pH 6.0 Ur Specific Park 1.015 Urine Protein Trace Urine Glucose (UA) Negative Urine Ketones Trace Urine Blood Negative Urine Nitrite Negative Ur Leukocyte Esterase Negative Coding Level of Care Code Est Pt Level 4 (84083) Diagnoses Depression, unspecified depression type F32.A Depression Type: unspecified Schizophrenia, unspecified type F20.9 Schizophrenia type: unspecified Hypertension, unspecified type I10 Hypertension type: unspecified Congestive heart failure, unspecified HF chronicity, unspecified heart failure type I50.9 Heart failure chronicity: unspecified Heart failure type: unspecified Hypercholesteremia E78.00 Vitamin D deficiency E55.9 Chronic idiopathic constipation K59.04 Right lower quadrant pain R10.31 Sleep apnea, unspecified type G47.30 Sleep apnea type: unspecified type Asthma, unspecified asthma severity, unspecified whether complicated, unspecified whether persistent J45.909 Asthma complication type: unspecified Asthma persistence: unspecified Asthma severity: unspecified severity Iron deficiency anemia, unspecified iron deficiency anemia type D50.9 Anemia type: iron deficiency Iron deficiency anemia type: unspecified iron deficiency Diarrhea, unspecified type R19.7 Diarrhea type: unspecified type Time Spent (min) 41 Assessment & Plan Assessment & Plan (1) Depression: Code(s): F32.9 - Major depressive disorder, single episode, unspecified Category: Medical Qualifiers: Depression Type: unspecified Qualified Code(s): F32.A - Depression, unspecified (2) Schizophrenia: Code(s): F20.9 - Schizophrenia, unspecified Category: Medical Qualifiers: Schizophrenia type: unspecified Qualified Code(s): F20.9 - Schizophrenia, unspecified (3) HTN (hypertension): Code(s): I10 - Essential (primary) hypertension Category: Medical Qualifiers: Hypertension type: unspecified Qualified Code(s): I10 - Essential (primary) hypertension (4) Congestive heart failure: Code(s): I50.9 - Heart failure, unspecified Category: Medical Qualifiers: Heart failure chronicity: unspecified Heart failure type: unspecified Qualified Code(s): I50.9 - Heart failure, unspecified (5) Hypercholesteremia: Code(s): E78.00 - Pure hypercholesterolemia, unspecified Category: Medical (6) Vitamin D deficiency: Code(s): E55.9 - Vitamin D deficiency, unspecified Category: Medical (7) Chronic idiopathic constipation: Code(s): K59.04 - Chronic idiopathic constipation Category: Medical (8) Right lower quadrant pain: Code(s): R10.31 - Right lower quadrant pain Category: Medical (9) Sleep apnea: Comment: uses CPAP Code(s): G47.30 - Sleep apnea, unspecified Category: Medical Qualifiers: Sleep apnea type: unspecified type Qualified Code(s): G47.30 - Sleep apnea, unspecified (10) Asthma: Code(s): J45.909 - Unspecified asthma, uncomplicated Category: Medical Qualifiers: Asthma complication type: unspecified Asthma persistence: unspecified Asthma severity: unspecified severity Qualified Code(s): J45.909 - Unspecified asthma, uncomplicated (11) Anemia: Code(s): D64.9 - Anemia, unspecified Category: Medical Qualifiers: Anemia type: iron deficiency Iron deficiency anemia type: unspecified iron deficiency Qualified Code(s): D50.9 - Iron deficiency anemia, unspecified (12) Diarrhea: Code(s): R19.7 - Diarrhea, unspecified Category: Medical Qualifiers: Diarrhea type: unspecified type Qualified Code(s): R19.7 - Diarrhea, unspecified Plan The plan includes managing the patient's hypertension by adding amlodipine 5 mg to better control blood pressure, as current medications are insufficient. The patient is advised to continue monitoring blood pressure at home and return in one week for a nurse check-up. For gastrointestinal symptoms, a stool sample will be collected to check for parasites, and an ultrasound will be scheduled to further investigate abdominal pain. The patient is reminded to adhere to the timing of Protonix administration to improve symptom control. A colonoscopy is scheduled for further evaluation, and the patient is encouraged to complete all lab work as soon as possible. Continue CPAP; reports compliance KUB ordered to evaluate abdomen. Continue MiraLax 17 g daily. Continue Zyprexa 20 mg at bedtime, prazosin 5 mg at bedtime, brexpiprazole 2 mg daily, and chlorpromazine follow up with psychiatry as scheduled History of heart failure has not followed up with Cardiology in a while. Apparently the patient has not been taking his metoprolol ER 50 mg. Discussed with the patient the importance of taking this medication and the risk of leaving in his blood pressure in a prolonged elevated state. The patient was referred to Cardiology on previous visit and has been seen and is being work up. Patient was informed and verbally consented to the use of an ambient scribe for clinic note documentation during this visit. Orders: Orders CRP High Sensitivity Today R10.31 - Right lower quadrant pain, R19.7 - Diarrhea, unspecified Erythrocyte Sedimentation Rate Today R10.31 - Right lower quadrant pain, R19.7 - Diarrhea, unspecified Amylase Today R10.31 - Right lower quadrant pain, R19.7 - Diarrhea, unspecified Leukocytes Stool Qualitative Today R10.31 - Right lower quadrant pain, R19.7 - Diarrhea, unspecified Cyclospora & Isospora Stool Today R10.31 - Right lower quadrant pain, R19.7 - Diarrhea, unspecified Ova and Parasite Today R10.31 - Right lower quadrant pain, R19.7 - Diarrhea, unspecified Comprehensive [place]. Panel Fast 3 Months D50.9 - Iron deficiency anemia, unspecified, E55.9 - Vitamin D deficiency, unspecified, E78.00 - Pure hypercholesterolemia, unspecified, F20.9 - Schizophrenia, unspecified, F32.A - Depression, unspecified, G47.30 - Sleep apnea, unspecified, I10 - Essential (primary) hypertension, I50.9 - Heart failure, unspecified, J45.909 - Unspecified asthma, uncomplicated, K59.04 - Chronic idiopathic constipation, K76.0 - Fatty (change of) liver, not elsewhere classified, R00.1 - Bradycardia, unspecified, R06.02 - Shortness of breath, R11.2 - Nausea with vomiting, unspecified TSH reflex Free T4 3 Months D50.9 - Iron deficiency anemia, unspecified, E55.9 - Vitamin D deficiency, unspecified, E78.00 - Pure hypercholesterolemia, unspecified, F20.9 - Schizophrenia, unspecified, F32.A - Depression, unspecified, G47.30 - Sleep apnea, unspecified, I10 - Essential (primary) hypertension, I50.9 - Heart failure, unspecified, J45.909 - Unspecified asthma, uncomplicated, K59.04 - Chronic idiopathic constipation, K76.0 - Fatty (change of) liver, not elsewhere classified, R00.1 - Bradycardia, unspecified, R06.02 - Shortness of breath, R11.2 - Nausea with vomiting, unspecified Microalbumin, Random (w Creat) 3 Months D50.9 - Iron deficiency anemia, unspecified, E55.9 - Vitamin D deficiency, unspecified, E78.00 - Pure hypercholesterolemia, unspecified, F20.9 - Schizophrenia, unspecified, F32.A - Depression, unspecified, G47.30 - Sleep apnea, unspecified, I10 - Essential (primary) hypertension, I50.9 - Heart failure, unspecified, J45.909 - Unspecified asthma, uncomplicated, K59.04 - Chronic idiopathic constipation, K76.0 - Fatty (change of) liver, not elsewhere classified, R00.1 - Bradycardia, unspecified, R06.02 - Shortness of breath, R11.2 - Nausea with vomiting, unspecified Transglutaminase Ab IgG Today R10.31 - Right lower quadrant pain, R19.7 - Diarrhea, unspecified Lipase Today R10.31 - Right lower quadrant pain, R19.7 - Diarrhea, unspecified Complete Blood Count Auto Diff 3 Months D50.9 - Iron deficiency anemia, unspecified, E55.9 - Vitamin D deficiency, unspecified, E78.00 - Pure hypercholesterolemia, unspecified, F20.9 - Schizophrenia, unspecified, F32.A - Depression, unspecified, G47.30 - Sleep apnea, unspecified, I10 - Essential (primary) hypertension, I50.9 - Heart failure, unspecified, J45.909 - Unspecified asthma, uncomplicated, K59.04 - Chronic idiopathic constipation, K76.0 - Fatty (change of) liver, not elsewhere classified, R00.1 - Bradycardia, unspecified, R06.02 - Shortness of breath, R11.2 - Nausea with vomiting, unspecified Lipid Panel 3 Months D50.9 - Iron deficiency anemia, unspecified, E55.9 - Vitamin D deficiency, unspecified, E78.00 - Pure hypercholesterolemia, unspecified, F20.9 - Schizophrenia, unspecified, F32.A - Depression, unspecified, G47.30 - Sleep apnea, unspecified, I10 - Essential (primary) hypertension, I50.9 - Heart failure, unspecified, J45.909 - Unspecified asthma, uncomplicated, K59.04 - Chronic idiopathic constipation, K76.0 - Fatty (change of) liver, not elsewhere classified, R00.1 - Bradycardia, unspecified, R06.02 - Shortness of breath, R11.2 - Nausea with vomiting, unspecified UA CC w/rflx Micro + Cult 3 Months D50.9 - Iron deficiency anemia, unspecified, E55.9 - Vitamin D deficiency, unspecified, E78.00 - Pure hypercholesterolemia, unspecified, F20.9 - Schizophrenia, unspecified, F32.A - Depression, unspecified, G47.30 - Sleep apnea, unspecified, I10 - Essential (primary) hypertension, I50.9 - Heart failure, unspecified, J45.909 - Unspecified asthma, uncomplicated, K59.04 - Chronic idiopathic constipation, K76.0 - Fatty (change of) liver, not elsewhere classified, R00.1 - Bradycardia, unspecified, R06.02 - Shortness of breath, R11.2 - Nausea with vomiting, unspecified Vitamin D 25-OH Total 3 Months D50.9 - Iron deficiency anemia, unspecified, E55.9 - Vitamin D deficiency, unspecified, E78.00 - Pure hypercholesterolemia, unspecified, F20.9 - Schizophrenia, unspecified, F32.A - Depression, unspecified, G47.30 - Sleep apnea, unspecified, I10 - Essential (primary) hypertension, I50.9 - Heart failure, unspecified, J45.909 - Unspecified asthma, uncomplicated, K59.04 - Chronic idiopathic constipation, K76.0 - Fatty (change of) liver, not elsewhere classified, R00.1 - Bradycardia, unspecified, R06.02 - Shortness of breath, R11.2 - Nausea with vomiting, unspecified Vitamin B12 and Folate 3 Months D50.9 - Iron deficiency anemia, unspecified, E55.9 - Vitamin D deficiency, unspecified, E78.00 - Pure hypercholesterolemia, unspecified, F20.9 - Schizophrenia, unspecified, F32.A - Depression, unspecified, G47.30 - Sleep apnea, unspecified, I10 - Essential (primary) hypertension, I50.9 - Heart failure, unspecified, J45.909 - Unspecified asthma, uncomplicated, K59.04 - Chronic idiopathic constipation, K76.0 - Fatty (change of) liver, not elsewhere classified, R00.1 - Bradycardia, unspecified, R06.02 - Shortness of breath, R11.2 - Nausea with vomiting, unspecified Hemoglobin A1c 3 Months D50.9 - Iron deficiency anemia, unspecified, E55.9 - Vitamin D deficiency, unspecified, E78.00 - Pure hypercholesterolemia, unspecified, F20.9 - Schizophrenia, unspecified, F32.A - Depression, unspecified, G47.30 - Sleep apnea, unspecified, I10 - Essential (primary) hypertension, I50.9 - Heart failure, unspecified, J45.909 - Unspecified asthma, uncomplicated, K59.04 - Chronic idiopathic constipation, K76.0 - Fatty (change of) liver, not elsewhere classified, R00.1 - Bradycardia, unspecified, R06.02 - Shortness of breath, R11.2 - Nausea with vomiting, unspecified XR KUB Today K59.04 - Chronic idiopathic constipation, R10.31 - Right lower quadrant pain, R19.7 - Diarrhea, unspecified Medications: New amlodipine 5 mg PO DAILY 30 tabs 3RF
--- OUTSIDE RECORDS SUMMARY | 2025-01-09 09:13 | XMS_ITS | Patient Health Record ---
Author Organization [facility] Address [address] [place] [address] Care Team Providers Care Batting Machine Operator Insulation Name Role Phone Tanner CHIU, Debbie Primary Care Provider Unavail able Sourav Pendleton Unavailable [phone] Allergies Allergen (clinical drug ingredient) Drug/Non Drug [...] Status W/U Status Risk Notes Problem Diarrhea (19510022) Diarrhea (787.91) Active confirmed Plan Of Treatment No Information Insurance Providers Payer Name Payer Address Payer Phone Subscriber Number Group Number Insured Name Patient Relationship to Insured Coverage Start Date Coverage End Date [employer] [address] [place] [address] [id number] ROXANN SMITH Self - patient is the insured Medical (General) History Medical History History ICD Code back pain anxiety depression schizophrenia colon polyps 02/2007-neg colonoscopy excep t for hyperplastic polyps and neg EGD except for a HH Denies IN,DM,CVA,Lung disease,renal dise ase Surgical History Surgery Date(Month/Year) Ulcer surgery with a B-I > 30 yrs ago [facility] Back surgery
--- OUTSIDE RECORDS SUMMARY | 2025-01-09 09:13 | XMS_ITS | Clinical Summary ---
Author Organization [facility] ity Address [address] [place] [address] Care Team Providers Care Bingo Attendant Name Role Phone Abiodun Wilkins MD Primary Care Provider +1- [phone] Medical History Medical History Date Comments Abdominal [...] Panel) 05/06/2022 Colorectal Cancer Screening: Colonoscopy 05/06/2022 Falls Risk Assessment 05/06/2022 Hepatitis C Screening 05/06/2022 Social Influencers of Health Screening 05/06/2022 Hypertension/CHF/CAD Annual BMP Blood Test 05/18/2022 COVID-19 Vaccine (1 - 2023-2 5 season) 2024 Depression Screening 06/04/2024 Influenza Vaccine (#1) 2025 HIB Vaccines Aged Out No longer [...] Documents on File Type Date Recorded Patient Bilingual Case Manager Expl anation Health Care Decision (hx) 10/06/2020 AD CSHERER DIRECTIVE Health Care Decision (hx) 10/06/2020 AD [...] (hx) 02/27/2015 AD SCHERER DIRECTIVE Care Teams Bingo Attendant Relationship Specialty Start Date End Date Abiodun Wilkins MD [address] [place] [phone] PCP - General Rheumatology 08/01/21
[2025-01-09 09:41] VITALS: BP 156/88
== END 2025-01-09 10:18 | disposition home or self-care (01) ==
LOC: HO.HMCH 09:02
PROVIDERS: PCP Internal Medicine
DX: F32.A Depression, unspecified (principal); F20.9 Schizophrenia, unspecified; I10 Essential (primary) hypertension; I50.9 Heart failure, unspecified; E78.00 Pure hypercholesterolemia, unspecified; E55.9 Vitamin D deficiency, unspecified; K59.04 Chronic idiopathic constipation; R10.31 Right lower quadrant pain; G47.30 Sleep apnea, unspecified; J45.909 Unspecified asthma, uncomplicated; D50.9 Iron deficiency anemia, unspecified; R19.7 Diarrhea, unspecified

== ENCOUNTER → 2025-01-09 09:02 | Outpatient (BNVA) | payer MEDICARE, SELFPAY | PROVIDERS: PCP Internal Medicine | DX: I11.0 Hypertensive heart disease with heart failure (principal); I50.9 Heart failure, unspecified; R10.9 Unspecified abdominal pain; R19.7 Diarrhea, unspecified; K59.00 Constipation, unspecified; K21.9 Gastro-esophageal reflux disease without esophagitis; F32.A Depression, unspecified; F20.9 Schizophrenia, unspecified; E55.9 Vitamin D deficiency, unspecified; E78.00 Pure hypercholesterolemia, unspecified; K59.04 Chronic idiopathic constipation; R10.31 Right lower quadrant pain; G47.30 Sleep apnea, unspecified; J45.909 Unspecified asthma, uncomplicated; D50.9 Iron deficiency anemia, unspecified; K76.0 Fatty (change of) liver, not elsewhere classified | CPT/HCPCS: 96127; 99212 ==

== ENCOUNTER → 2025-01-15 09:01 | Outpatient (REF) | payer MEDICARE, SELFPAY ==
--- NOTE | 2025-01-15 09:04 | HM_ITS ---
* Total monitoring time 3 days. * Underlying rhythm is sinus with an average rate of 65/Min. * Rare supraventricular ectopy. * Rare ventricular ectopy. Short run of idioventricular rhythm, 5 beats. * No significant pauses or high-grade AV blocks. * No patient markers or diary events. MTDD
--- NOTE | 2025-01-15 09:04 | CA_ITS ---
Transthoracic Echocardiogram Patient (Last, First, Middle): Bill Edmonsdon L Gender: Male Date of : 1950 Age: 74 Procedure Date: 01/15/2025 Procedure Type: Transthoracic Echocardiogram Location: OP Height: 165.1 cm Weight: 87.09 kg BSA: 1.94 m2 Heart Rate: bpm BP: 142 / 78 mmHg Grounds Maintenance Supervisor: TO Referring MD: Judah Bautista MD Delivery Truck Driver: Steve Montgomery MD Symptoms: I50.9 - Heart failure, unspecified Study Quality: Adequate ECG Rhythm: Sinus Conclusions: - 1. Normal LV ejection fraction 50-55% with impaired relaxation filling pattern 2. Mildly dilated left atrium 3. Cardiac valvular Dopplers within normal limits 4. Mildly dilated ascending aorta 5. No gross pericardial effusion Findings Left Ventricle Normal left ventricular cavity size. There is normal left ventricular wall thickness. The left ventricular systolic function is low normal. The visually estimated ejection fraction is between 50-55%. Spectral Doppler is indicative of an impaired relaxation filling pattern. E/E prime ratio is between 8 and 15 consistent with indeterminate filling pressures. Right Ventricle Normal right ventricular cavity size and systolic function. Atria The left atrium is mildly dilated. There is no evidence of interatrial shunt. The right atrium is normal in size. Aortic Valve The aortic valve structure and function is likely normal. There is no aortic valve stenosis. There is no aortic valve regurgitation. Mitral Valve There is mild anterior and posterior mitral leaflet thickening. There is trace mitral valve regurgitation. There is no mitral valve stenosis. Pulmonic Valve The pulmonic valve is likely normal. There is trace pulmonic valve regurgitation. Tricuspid Valve Normal tricuspid valve structure. Tricuspid regurgitation envelope is inadequate for calculation of right ventricular systolic pressure. Normal right atrial pressure. Great Vessels The pulmonary artery was not well visualized. There is mild dilatation of the ascending aorta measuring 3.80 cm. Venous The inferior vena cava is normal in size and collapses greater than 50% with inspiration. Pericardium/Pleural There is no evidence of pericardial effusion. Prior Study Comparison no previous study in the last 5 years for comparison Measurements 2D Linear Measurements IVSd: 0.86 0.6-0.9/0.6-1.0 cm LVIDd: 5.47 3.9-5.3/4.2-5.9 cm LVIDd Index: 2.82 2.4-3.2/2.2-3.1 cm/m2 LVIDs: 3.87 2.0-3.6 cm LVPWd: 0.81 0.7-1.1 cm LA Diam: 3.50 2.7-3.8/3.0-4.0 cm LAIDs Index: 1.80 1.5-2.3 cm/m2 LV Mass: 209.14 67-162/88-224 g LV Mass Index: 107.80 43-95/49-115 g/m2 LVOT Diam: 2.50 3.0+(-)1.3 cm 2D Systolic Function EF 4C: 50.80 >55% EF 2C: 52.80 >55% EF BiP: 52.40 >55% Mitral Valve MV Pk E: 0.44 MV PK A: 0.64 MV Decel Time: 238.00 E/A: 0.70 E'Lateral: 5.87 E'Medial: 4.24 E/E' Med: 10.40 E/E' Lat: 7.50 PHT: 70.00 MVA PHT: 3.14 Decel [place]: 1.85 Aortic Valve AoV Pk Talib: 1.19 AoV Mn Talib: 0.83 AoV VTI: 0.27 AoV Pk Grad: 6.00 Aov Mn Grad: 3.00 AYDE Cont.VTI: 2.90 LVOT LVOT Pk Talib: 0.76 LVOT Mn Talib: 0.47 LVOT VTI: 0.16 LVOT Pk Grad: 2.00 LVOT Mn Grad: 1.00 LVOT Diam: 2.50 LVOT Area: 4.91 Diastolic Function MV Pk E: 0.44 MV Pk A: 0.64 E/A: 0.70 E'Medial: 4.24 E/E' Med: 10.40 E' Laterial: 5.87 E/E' Lat: 7.50 Right Ventricle TAPSE (mm): 21.70 TVS' Talib: 10.60 Tricuspid Valve RA Press: 3.00 Great Vessels Aorta Sinus of Valsalva: 3.68 2.0-3.[address] [place]: 3.18 1.7-3.4 cm Ao Asc: 3.80 2.1-3.4 cm Updated in Other Vendor System with Status of Final Steve Montgomery MD electronically signed on 01/15/2025 4:10:55 PM with status of Final
--- OUTSIDE RECORDS SUMMARY | 2025-01-15 09:19 | XMS_ITS | Clinical Summary ---
Author Organization [facility] ity Address [address] [place] [address] Care Team Providers Care Permit Coordinator Name Role Phone Abiodun Wilkins MD Primary Care Provider +1- [phone] Medical History Medical History Date Comments Abdominal [...] Documents on File Type Date Recorded Patient Sales Support Advisor Expl anation Health Care Decision (hx) 10/06/2020 [...] (hx) 02/27/2015 AD SCHERER DIRECTIVE Care Teams Permit Coordinator Relationship Specialty Start Date End Date Abiodun Wilkins MD [address] [place] [phone] PCP - General Rheumatology 08/01/21
--- OUTSIDE RECORDS SUMMARY | 2025-01-15 09:19 | XMS_ITS | Patient Health Record ---
Author Organization [facility] Address [address] [place] [address] Care Team Providers Care Meat Seafood Associate Name Role Phone Tanner CHIU, Debbie Primary Care Provider Unavail able Sourav Pendleton Unavailable [phone] Allergies Allergen (clinical drug ingredient) Drug/Non Drug [...] Status W/U Status Risk Notes Problem Diarrhea (98662464) Diarrhea (787.91) Active confirmed Plan Of Treatment No Information Insurance Providers Payer Name Payer Address Payer Phone Subscriber Number Group Number Insured Name Patient Relationship to Insured Coverage Start Date Coverage End Date [employer] [address] [place] [address] [id number] ROXANN SMITH Self - patient is the insured Medical (General) History Medical History History ICD Code back pain anxiety depression schizophrenia colon polyps 02/2007-neg colonoscopy excep t for hyperplastic polyps and neg EGD except for a HH Denies CA,DM,CVA,Lung disease,renal dise ase Surgical History Surgery Date(Month/Year) Ulcer surgery with a B-I > 30 yrs ago [facility]Y Back surgery
== END ==
LOC: HO.CARD 09:01
PROVIDERS: Visit Provider Internal Medicine
DX: R00.1 Bradycardia, unspecified (principal); I50.9 Heart failure, unspecified
CPT/HCPCS: 93242; 93306

== ENCOUNTER → 2025-01-15 09:04 | Outpatient (BNV) | payer MEDICARE, SELFPAY | PROVIDERS: Visit Provider Internal Medicine Cardiovascular Disease | DX: I50.9 Heart failure, unspecified (principal) | CPT/HCPCS: 93306 ==

== ENCOUNTER 2025-01-29 11:06 | Outpatient (AMB) | payer MEDICARE, SELFPAY ==
--- NOTE | 2025-01-29 11:13 | A.OFFVIS_ITS ---
Vital Signs 01/29/25 11:25 Height 5 ft 8 in Weight 196 lb BMI 29.8 BP 130/72 Blood Pressure Location Rt brachial Position Sitting Pulse 46 L Pulse Source Pulse Oximeter Pulse Oximetry (%) 98 Oxygen Delivery Method Room Air Intake Visit Reasons: Colonoscopy screening Intake Note: New pt for recall colo screening. CC; C.O. epigastric pain intermittently. Pt denies any additional sx at this time. Anesthesiologist/Physician Required: Yes Anesthesiologist/Physician Services: Anesthesiologist/Physician Present Anesthesiologist/Physician Name: Derrick [id number] Information Interpreted: clinical only Accompanied by: Self / Same As Patient Allergies aspirin (ASPIRIN) Allergy (Severe, Verified 01/29/25 11:13) ANAPHYLAXIS ibuprofen (From MOTRIN) Allergy (Severe, Verified 01/29/25 11:13) ANAPHYLAXIS Penicillins Allergy (Severe, Verified 01/29/25 11:13) ANAPHYLAXIS asenapine (From SAPHRIS) Allergy (Intermediate, Verified 01/29/25 11:13) ITCHING influenza virus vaccine, specific (FLU VACCINE) Allergy (Intermediate, Verified 01/29/25 11:13) DIZZINESS/SOB/CP quetiapine (From SEROQUEL) Allergy (Intermediate, Verified 01/29/25 11:13) HTN morphine (MORPHINE) Allergy (Unknown, Verified 01/29/25 11:13) Unknown ChlorproMAZINE Allergy (Unknown, Uncoded 01/29/25 11:13) Unknown Clindamycin HCl Allergy (Unknown, Uncoded 01/29/25 11:13) Unknown Medication List - Last Reconciled 01/29/25 by ANN Banda acetaminophen ER (Arthritis Pain Relief (acetaminophen) ER) 650 mg PO BID PRN amlodipine 5 mg PO DAILY aripiprazole (Abilify) 2 mg PO DAILY [Blood pressure machine As directed] blood sugar diagnostic (CyberSense G2 strips) test daily blood-glucose meter (CyberSense G2) As directed cholecalciferol (vitamin D3) 25 mcg PO DAILY clonidine HCl 0.1 mg PO TID CPAP CPAP supplies CPAP (CPAP Machine/Device) As directed ferrous sulfate 325 mg PO DAILY metoprolol succinate ER 50 mg PO DAILY olanzapine (Zyprexa) 20 mg PO BEDTIME pantoprazole (Protonix) 20 mg PO BID prazosin 5 mg PO BEDTIME trazodone 150 mg PO DAILY venlafaxine ER 150 mg PO DAILY HPI HPI Colonoscopy screening: Details: Assessment & Plan (1) Nausea and vomiting: Code(s): R11.2 - Nausea with vomiting, unspecified Category: Medical (2) Chronic idiopathic constipation: Code(s): K59.04 - Chronic idiopathic constipation Category: Medical Plan [facility] #[id number] With the addition of bid pantoprazole, he is now doing well! We were not able to get the famotidine. Now with the LInzess he is satisfied with his GI regimen. He is aware of his colonoscopy date. He already has an appt to see me after the colonoscopy He will call if he needs me prior to then. COLONOSCOPY Scheduled for 03/31/2024 APPARENTLY THE PATIENT CANCEL THIS PROCEDURE BIOPSY CORREPONDENCE On 03/26/24 @ 14:37 Janna Browning Wrote To G[facility] Surgical Schedulers noted, ov cancled. Janna Browning completed item. On 03/26/24 @ 14:29 Javed Mock Wrote To Gastro Surgical Schedulers I called patient to review prep instructions for Saturday 03/[address] Todd. Patient said he has to cancel procedure because he has to go to court. I advised for the patient to call back and reschedule when he is able to. I notified Christy in the OR. gore stitcher utilized, Jomar, #[id number]. TODAY'S VISIT [facility] #Lucia Live There are no prior problems with anesthesia or sedation His asthma is well controlled and he has a hx of CHF and no insight into how well this is controlled, he shows me he has nitrogylcerin for heart pain. 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 He has had cardiac tests at [facility]. He will now need cardiac clearance. No ID problems. He says his father had CRC at age 50. His sister has an a cancer that required urgery but he does not know the exact type. Kosovan # PFSH Medical History (Updated 01/29/25 @ 12:20 by ANN Banda) Pre-op examination Chronic idiopathic constipation Annual physical exam Encounter for colorectal cancer screening Constipation COVID-19 Nausea and vomiting Shortness of breath Anemia Asthma BPH (benign prostatic hyperplasia) Arthritis Back pain History of traumatic head injury Schizophrenia Depression Sleep apnea Elevated cholesterol HTN (hypertension) Surgical History History of surgery Hx of cataract extraction Hx of cystoscopy Hx of cholecystectomy History of gastric surgery History of esophagogastroduodenoscopy (EGD) H/O colonoscopy Family History Mother Cancer Father Prostate cancer Brother No problems noted. Sister Colon cancer Other Mental health disorder Social History Housing: Apartment Alcohol intake: never Patient Tobacco Use Status: Never used Tobacco Tobacco use type: Cigarette e-Cigarette/Vaping Use: Never Used Second Hand Smoke Exposure: No service: No Current occupational status: disabled Cognitive needs: No Hearing needs: No Vision needs: Yes Review of Systems Const Denies fatigue, Denies fever(s), Denies night sweats, Denies poor appetite and D enies weight loss ENT Reports Normal hearing present, Denies dental pain, Denies dysphagia, Reports dizziness, Denies hearing loss, Denies mouth pain, Denies odynophagia, Denies throat swelling, Denies tongue swelling and Reports other (Dentition adequate) Card Reports no additional complaints Resp Reports no additional complaints GI Details: Reports abdominal pain, Denies melena, Reports bloating, Denies hematochezia, Denies constipation, Denies GI cramping, Denies dysphagia, Denies excessive flatus, Denies early satiety, Reports heartburn, Reports diarrhea, Reports nausea, Denies odynophagia, Reports vomiting and Denies hematemesis Skin/Breast Denies pruritus, Denies lesions, Denies rash and Denies jaundice Neuro Reports Normal hearing present, Denies Abnormal speech present and Reports dizziness Psych Reports visual hallucinations (Although this is currently controlled), Reports hallucinations (Although this is currently controlled), Denies homicidal i deation and Denies suicidal ideation Endo Denies fatigue Aller/Immun Denies throat swelling and Denies tongue swelling Physical Exam Vital Signs: Last Vital Signs Pulse 46 L 01/29/25 11:25 BP 130/72 01/29/25 11:25 Pulse Ox 98 01/29/25 11:25 Oxygen Delivery Method Room Air 01/29/25 11:25 BMI result Body Mass Index 29.8 Const General: cooperative, no acute distress, well developed and well groomed Nutritional Appearance: well nourished, obese and overweight Orientation/consciousness: oriented to person, oriented to place and oriented to time Limitations: language barrier and other limitations HEENT Head: Yes normocephalic and Yes atraumatic Eyes General: appearance normal, both eyes and all related structures Pupils: Equal, round and reactive pupils present Neck Neck: Yes normal visual inspection and Yes no lymphadenopathy Thyroid: Thyroid normal Resp Effort & Inspection: normal respiratory effort and able to speak in complete sentences Auscultation: clear to auscultation bilaterally Cardio Rate: regular rate Rhythm: regular rhythm Heart sounds: Normal, physiologic split S2 sound present Peripheral pulses: radial pulses present and posterior tibial pulses present GI Inspection: No distended, No Abdominal panniculus present and Yes obesity Palpation (GI): Soft to palpation, nontender, no guarding, not rigid and No hep atosplenomegaly present Percussion: Yes normal to percussion Auscultation: normal bowel sounds Rectal Exam - Male: Yes deferred Skin General skin exam: no rashes or lesions noted, turgor normal, skin not dry, no jaundice, No spider nevi and no striae Rashes: no rashes Nails: normal Neuro General: oriented to person, oriented to place and oriented to time Cranial nerves: Yes Equal, round and reactive pupils present and Yes Normal hearing present Speech: No Abnormal speech present Extrem General: Yes normal to inspection, No clubbing, No cyanosis and No edema Psych Appearance: grossly normal and well kempt Mental Status: mental status grossly normal Speech and movement: Normal speech and movement present Affect: Blunted affect present Attitude: cooperative Thought process: not confabulating, logical and Tangential thought process present Thought content: Normal thought content present Insight: Poor insight present (Psych) Judgement: Poor judgement present (Psych) Assessment & Plan Assessment & Plan (1) Pre-op examination: Code(s): Z01.818 - Encounter for other preprocedural examination Category: Medical (2) Nausea and vomiting: Code(s): R11.2 - Nausea with vomiting, unspecified Category: Medical (3) Abdominal pain: Code(s): R10.9 - Unspecified abdominal pain Category: Medical Qualifiers: Abdominal location: unspecified location Qualified Code(s): R10.9 - Unspecified abdominal pain (4) Diarrhea: Code(s): R19.7 - Diarrhea, unspecified Category: Medical Qualifiers: Diarrhea type: unspecified type Qualified Code(s): R19.7 - Diarrhea, unspecified (5) Nausea and vomiting: Code(s): R11.2 - Nausea with vomiting, unspecified Category: Medical Plan - The patient is a 74-year-old male presenting with upper gastric pain, vomiting, and diarrhea. He also has exacerbating remitting schizophrenia which has complicated our ability to get him in for colonoscopy screening. In fact recently she had a severe exacerbation with hallucinations and was arrested and briefly in snf which was quickly dismissed by the corporate relations manager once his psychiatric history was uncovered. Also his has left him so his social supports are more limited but he says that he has a stable living condition now. - Reports a colicky pain developing 15 minutes postprandially with a recurrent nature, identified right above the belly button area. This will last for many hours. Ranges from 5/10 to 10/10. - Emphasizes recent changes in bowel habits with morning diarrhea transitioning to more solid stools by midday. - Notes repeated postprandial vomiting occurring 30 minutes after meals, since this is of new onset over the past 2 months I wonder if it is a side effect related to changes in his psychiatric medications. - he is concerned that his pantoprazole is not being absorbed because of the vomiting as he will see it, pull at times. - Comorbidity management includes ongoing hypertension treated with metoprolol, amlodipine clonidine and prazosin. Apparently there has been some difficulty getting this controlled. The patient denies that he has been noncompliant with these medications. - Relates prior surgical history of cholecystectomy due to past gallbladder disease. This could have some affect on his stooling. - Family medical history is significant for cancer, noting colon cancer in the father and another unspecified type in the sister. While I consider doing Cologuard for his colon screening given his upper GI symptoms he likely needs an endoscopy so we might as well order an endoscopy/col onoscopy combination. He feels that he will be able to prep for this and show up for the appointment because he is more stable and his psychiatric status at this time. Because of the new onset diarrhea I sent him to get some lab work today that was initially ordered by his primary care provider including some stool studies. This will help us in the differential diagnosis going forward. I want him to bring all of his medicines the next visit so I can see what he is taking and make sure I know which medicines he seems to be objecting to. To try to help him with nausea and vomiting I am going to prescribe Zofran ODT 3 times a day. Return office visit in 2 weeks to evaluate the medications and what tests we have at that time. This is a particularly long visit given the patient's complex social and psychiatric contributing factors in his ability to give us a good history of his current condition. Unfortunately he is not well acquainted with the names of his medications and has limited social support. Orders: Orders EGD/Virden Combo - GI Use Only Today R10.9 - Unspecified abdominal pain, R11.2 - Nausea with vomiting, unspecified, R19.7 - Diarrhea, unspecified, Z01.818 - Encounter for other preprocedural examination Ova and Parasite Today R10.31 - Right lower quadrant pain, R19.7 - Diarrhea, unspecified Lipase Today R10.31 - Right lower quadrant pain, R19.7 - Diarrhea, unspecified CRP High Sensitivity Today R10.31 - Right lower quadrant pain, R19.7 - Diarrhea, unspecified XR KUB Today K59.04 - Chronic idiopathic constipation, R10.31 - Right lower quadrant pain, R19.7 - Diarrhea, unspecified CDiff Gene PCR Today R19.7 - Diarrhea, unspecified Transglutaminase Ab IgG Today R10.31 - Right lower quadrant pain, R19.7 - Diarrhea, unspecified Amylase Today R10.31 - Right lower quadrant pain, R19.7 - Diarrhea, unspecified Cyclospora & Isospora Stool Today R10.31 - Right lower quadrant pain, R19.7 - Diarrhea, unspecified Leukocytes Stool Qualitative Today R10.31 - Right lower quadrant pain, R19.7 - Diarrhea, unspecified Medications: New sodium,potassium,mag sulfates 17.5-3.13-1.6 gram (Suprep Bowel Prep Kit) 480 mL orally; FOR COLONOSCOPY PREP 354 mL 0RF ondansetron 4 mg PO BID PRN 60 tabs 3RF nausea and vomiting R11.2 - Nausea with vomiting, unspecified Refilled pantoprazole (Protonix) 20 mg PO BID 180 tabs 1RF R12 - Heartburn Coding Level of Care Code Est Pt Level 4 (29755) Diagnoses Pre-op examination Z01.818 Nausea and vomiting R11.2 Abdominal pain, unspecified abdominal location R10.9 Abdominal location: unspecified location Diarrhea, unspecified type R19.7 Diarrhea type: unspecified type Time Spent (min) 39
[2025-01-29 11:25] VITALS: BP 130/72; PULSE 46; O2SAT 98; BMI 29.8
--- OUTSIDE RECORDS SUMMARY | 2025-01-29 12:28 | XMS_ITS | Patient Health Record ---
Author Organization [facility] Address [address] [place] [address] Care Team Providers Care Plastic Top Assembler Name Role Phone Tanner CHIU, Debbie Primary Care Provider Unavail able Sourav Pendleton Unavailable [phone] Allergies Allergen (clinical drug ingredient) Drug/Non Drug [...] Status W/U Status Risk Notes Problem Diarrhea (74763943) Diarrhea (787.91) Active confirmed Plan Of Treatment No Information Insurance Providers Payer Name Payer Address Payer Phone Subscriber Number Group Number Insured Name Patient Relationship to Insured Coverage Start Date Coverage End Date [employer] [address] [facility] [address] [place] [address] [phone] [id number] ROXANN SMITH Self - patient is the insured Medical (General) History Medical History History ICD Code back pain anxiety depression schizophrenia colon polyps 02/2007-neg colonoscopy excep t for hyperplastic polyps and neg EGD except for a HH Denies VT,DM,CVA,Lung disease,renal dise ase Surgical History Surgery Date(Month/Year) Ulcer surgery with a B-I > 30 yrs ago CCY Back surgery
--- OUTSIDE RECORDS SUMMARY | 2025-01-29 12:28 | XMS_ITS | Clinical Summary ---
Author Organization [facility] ity Address [address] [place] [address] Care Team Providers Care Utility Hand Name Role Phone Abiodun Wilkins MD Primary Care Provider +1- [phone] Medical History Medical History Date Comments Abdominal [...] Documents on File Type Date Recorded Patient Radiology Manager Expl anation Health Care Decision (hx) [...] (hx) 02/27/2015 AD SCHERER DIRECTIVE Care Teams Utility Hand Relationship Specialty Start Date End Date Abiodun Wilkins MD [address] [place] [phone] PCP - General Rheumatology 08/01/21
== END 2025-01-29 12:34 | disposition home or self-care (01) ==
LOC: HO.HGI 11:07
PROVIDERS: Visit Provider Nurse Practitioner
DX: R11.2 Nausea with vomiting, unspecified (principal); R10.9 Unspecified abdominal pain; R19.7 Diarrhea, unspecified; Z80.0 Family history of malignant neoplasm of digestive organs
CPT/HCPCS: 99214

== ENCOUNTER → 2025-01-29 11:06 | Outpatient (BNVA) | payer MEDICARE, SELFPAY | PROVIDERS: Visit Provider Nurse Practitioner | DX: Z01.818 Encounter for other preprocedural examination (principal); R11.2 Nausea with vomiting, unspecified; R10.9 Unspecified abdominal pain; R19.7 Diarrhea, unspecified | CPT/HCPCS: 99212 ==

== ENCOUNTER 2025-01-30 07:56 | Outpatient (REF) | payer MEDICARE, SELFPAY ==
--- NOTE | ~2025-01-30 | XR_ITS ---
EXAMINATION: XR ABDOMEN 1 VIEW (KUB) HISTORY: K59.04 - Chronic idiopathic constipation COMPARISON: There are no prior studies available for comparison. FINDINGS: Three supine views of the abdomen are submitted. The bowel gas pattern is unremarkable, without evidence of mechanical obstruction. There is a moderate amount of stool throughout the colon. There are scattered surgical clips in the upper abdomen. There are phleboliths in the pelvis. There are no abnormal soft tissue masses. There is degenerative disc disease of the spine. XR/XR KUB IMPRESSION: Moderate amount of stool throughout the colon. Electronically signed by: Sourav Parikh MD 01/30/2025 08:43 AM EDT
--- OUTSIDE RECORDS SUMMARY | 2025-01-30 08:00 | XMS_ITS | Clinical Summary ---
Author Organization [facility] ity Address [address] [place] [address] Care Team Providers Care Garment Manufacturing Supervisor Name Role Phone Abiodun Wilkins MD Primary Care Provider +1- [phone] Medical History Medical History Date Comments Abdominal [...] Documents on File Type Date Recorded Patient Pig Conveyor Operator Expl anation Health Care Decision (hx) [...] (hx) 02/27/2015 AD SCHERER DIRECTIVE Care Teams Garment Manufacturing Supervisor Relationship Specialty Start Date End Date Abiodun Wilkins MD [address] [place] [phone] PCP - General Rheumatology 08/01/21
--- OUTSIDE RECORDS SUMMARY | 2025-01-30 08:00 | XMS_ITS | Patient Health Record ---
Author Organization [facility] Address [address] [place] [address] Care Team Providers Care Cotton Program Technician Name Role Phone Tanner CHIU, Debbie Primary Care Provider Unavail able Sourav Pendleton Unavailable [phone] Allergies Allergen (clinical drug ingredient) Drug/Non Drug [...] Status W/U Status Risk Notes Problem Diarrhea (11933141) Diarrhea (787.91) Active confirmed Plan Of Treatment No Information Insurance Providers Payer Name Payer Address Payer Phone Subscriber Number Group Number Insured Name Patient Relationship to Insured Coverage Start Date Coverage End Date [employer] [address] [address] [facility] [address] [place] [address] [phone] [id number] ROXANN SMITH Self - patient is the [...]
[2025-01-30 09:22] LABS: Amylase 147 U/L (28-100); Lipase 12 U/L (8-78)
[2025-01-30 10:36] LABS: Leukocytes Stool Qualitative NEGATIVE (NEGATIVE)
[2025-01-30 12:32] LABS: CDiff Gene PCR NEGATIVE (Negative)
[2025-02-03 18:52] LABS: Transglutaminase Ab IgG <1.0 U/mL
== END 2025-01-30 07:57 | disposition home or self-care (01) ==
LOC: HO.LAB 07:56
PROVIDERS: Visit Provider Nurse Practitioner
DX: K59.04 Chronic idiopathic constipation (principal); R19.7 Diarrhea, unspecified; R10.31 Right lower quadrant pain
CPT/HCPCS: 36415; 74018; 82150; 83690; 86141; 86364; 87015; 87177; 87207; 87209; 87493; 89055

== ENCOUNTER → 2025-01-30 08:16 | Outpatient (BNV) | payer MEDICARE, SELFPAY | PROVIDERS: Visit Provider Radiology Diagnostic Radiology | DX: K59.04 Chronic idiopathic constipation (principal) | CPT/HCPCS: 74018 ==

== ENCOUNTER 2025-02-12 10:05 | Outpatient (AMB) | payer MEDICARE, SELFPAY ==
--- NOTE | 2025-02-12 10:40 | A.OFFVIS_ITS ---
Vital Signs 02/12/25 10:42 Height 5 ft 8 in Weight 197 lb 1.492 oz BMI 30.0 Intake Visit Reasons: 2 week follow up meds,labs, Xray Intake Note: Bill presents in office today in follow up of labs and X-ray. CC: Patient reports doing better from epigastric pain. Denies having any new GI symptoms or concerns today. Apartment Hotel Manager Required: Yes Apartment Hotel Manager Language: Ethiopian Allergies aspirin (ASPIRIN) Allergy (Severe, Verified 02/12/25 11:06) ANAPHYLAXIS ibuprofen (From MOTRIN) Allergy (Severe, Verified 02/12/25 11:06) ANAPHYLAXIS Penicillins Allergy (Severe, Verified 02/12/25 11:06) ANAPHYLAXIS asenapine (From SAPHRIS) Allergy (Intermediate, Verified 02/12/25 11:06) ITCHING quetiapine (From SEROQUEL) Allergy (Intermediate, Verified 02/12/25 11:06) HTN morphine (MORPHINE) Allergy (Unknown, Verified 02/12/25 11:06) Unknown ChlorproMAZINE Allergy (Unknown, Uncoded 01/29/25 11:13) Unknown Clindamycin HCl Allergy (Unknown, Uncoded 01/29/25 11:13) Unknown HPI HPI 2 week follow up meds,labs, Xray: Details: Assessment & Plan (1) Nausea and vomiting: Code(s): R11.2 - Nausea with vomiting, unspecified Category: Medical (2) Chronic idiopathic constipation: Code(s): K59.04 - Chronic idiopathic constipation Category: Medical Plan Ethiopian #[id number] With the addition of bid pantoprazole, he is now doing well! We were not able to get the famotidine. Now with the LInzess he is satisfied with his GI regimen. He is aware of his colonoscopy date. He already has an appt to see me after the colonoscopy He will call if he needs me prior to then. COLONOSCOPY Scheduled for 03/31/2024 APPARENTLY THE PATIENT CANCEL THIS PROCEDURE BIOPSY CORREPONDENCE On 03/26/24 @ 14:37 Janna Browning Wrote To [facility] Schedulers noted, ov cancled. Han [place] completed item. On 03/26/24 @ 14:29 Javed Mock Wrote To [facility] Schedulers I called patient to review prep instructions for Saturday 03/[address] Todd. Patient said he has to cancel procedure because he has to go to court. I advised for the patient to call back and reschedule when he is able to. I notified Christy in the OR. hydro generation manager utilized, Jomar, #[id number]. LABS Laboratory Tests 01/30/25 08:00 Stool Leukocytes, Qual NEGATIVE Stl Isospora & Cyclospora NEGATIVE ABD XR 01/30/2025 FINDINGS: Three supine views of the abdomen are submitted. The bowel gas pattern is unremarkable, without evidence of mechanical obstruction. There is a moderate amount of stool throughout the colon. There are scattered surgical clips in the upper abdomen. There are phleboliths in the pelvis. There are no abnormal soft tissue masses. There is degenerative disc disease of the spine. XR/XR KUB IMPRESSION: Moderate amount of stool throughout the colon. TODAY'S VISIT Ethiopian #V LIVE He continues on pantoprazole and Linzess. Ethiopian # PFS Medical History Pre-op examination Chronic idiopathic constipation Annual physical exam Encounter for colorectal cancer screening Constipation COVID-19 Nausea and vomiting Shortness of breath Anemia Asthma BPH (benign prostatic hyperplasia) Arthritis Back pain History of traumatic head injury Schizophrenia Depression Sleep apnea Elevated cholesterol HTN (hypertension) Surgical History History of surgery Hx of cataract extraction Hx of cystoscopy Hx of cholecystectomy History of gastric surgery History of esophagogastroduodenoscopy (EGD) H/O colonoscopy Family History Mother Cancer Father Prostate cancer Brother No problems noted. Sister Colon cancer Other Mental health disorder Social History Housing: Apartment Alcohol intake: never Patient Tobacco Use Status: Never used Tobacco Tobacco use type: Cigarette e-Cigarette/Vaping Use: Never Used Second Hand Smoke Exposure: No service: No Current occupational status: disabled Cognitive needs: No Hearing needs: No Vision needs: Yes Review of Systems Const Denies fatigue, Denies fever(s), Denies night sweats, Denies poor appetite and Denies weight loss ENT Reports Normal hearing present, Denies dental pain, Denies dysphagia, Denies hearing loss, Denies mouth pain, Denies odynophagia, Denies throat swelling, Denies tongue swelling and Reports other (Dentition adequate) Card Reports no additional complaints Resp Reports no additional complaints GI Details: Denies abdominal pain, Denies melena, Denies bloating, Denies hematochezia, Reports constipation, Denies GI cramping, Denies dysphagia, Denies excessive flatus, Denies early satiety, Reports heartburn, Denies diarrhea, Denies nausea, Denies odynophagia, Denies vomiting and Denies hematemesis Skin/Breast Denies pruritus, Denies lesions, Denies rash and Denies jaundice Neuro Reports Normal hearing present and Denies Abnormal speech present Endo Denies fatigue Aller/Immun Denies throat swelling and Denies tongue swelling Physical Exam Vital Signs: BMI result Body Mass Index 30.0 Const General: cooperative, no acute distress, well developed and well groomed Nutritional Appearance: well nourished and obese Orientation/consciousness: oriented to person, oriented to place and oriented to time Limitations: language barrier HEENT Head: Yes normocephalic and Yes atraumatic Eyes General: appearance normal, both eyes and all related structures Pupils: Equal, round and reactive pupils present Neck Neck: Yes normal visual inspection and Yes no lymphadenopathy Thyroid: Thyroid normal Resp Effort & Inspection: normal respiratory effort and able to speak in complete sentences Auscultation: clear to auscultation bilaterally Cardio Rate: regular rate Rhythm: regular rhythm Heart sounds: Normal, physiologic split S2 sound present Peripheral pulses: radial pulses present and posterior tibial pulses present GI Inspection: No distended, No Abdominal panniculus present and Yes obesity Palpation (GI): Soft to palpation, nontender, no guarding, not rigid and No hepatosplenomegaly present Percussion: Yes normal to percussion Auscultation: normal bowel sounds Rectal Exam - Male: Yes deferred Skin General skin exam: no rashes or lesions noted, turgor normal, skin not dry, no jaundice, No spider nevi and no striae Rashes: no rashes Nails: normal Neuro General: oriented to person, oriented to place and oriented to time Cranial nerves: Yes Equal, round and reactive pupils present and Yes Normal hearing present Speech: No Abnormal speech present Extrem General: Yes normal to inspection, No clubbing, No cyanosis and No edema Psych Appearance: grossly normal and well kempt Mental Status: mental status grossly normal Speech and movement: Normal speech and movement present Affect: normal affect Attitude: cooperative Thought process: Normal thought process present and not confabulating Thought content: Normal thought content present Insight: Limited insight present (Psych) Judgement: Limited judgement present (Psych) Assessment & Plan Assessment & Plan (1) Family history of colon cancer: Comment: sister in 50's Code(s): Z80.0 - Family history of malignant neoplasm of digestive organs Category: Medical (2) Asthma: Code(s): J45.909 - Unspecified asthma, uncomplicated Category: Medical Qualifiers: Asthma complication type: unspecified Asthma persistence: unspecified Asthma severity: unspecified severity Qualified Code(s): J45.909 - Unspecified asthma, uncomplicated (3) Sleep apnea: Comment: uses CPAP Code(s): G47.30 - Sleep apnea, unspecified Category: Medical Qualifiers: Sleep apnea type: unspecified type Qualified Code(s): G47.30 - Sleep apnea, unspecified (4) Congestive heart failure: Code(s): I50.9 - Heart failure, unspecified Category: Medical Qualifiers: Heart failure chronicity: unspecified Heart failure type: unspecified Qualified Code(s): I50.9 - Heart failure, unspecified Plan Ethiopian #V LIVE He continues on pantoprazole and Linzess. - The patient is a 74-year-old male presenting with constipation. - Symptoms initiated a week prior with difficulty in stooling despite the sensation to evacuate. - Previously had normal bowel motions, once daily. - No changes reported in medication or vitamin use. - Consumes a diet primarily of chicken, rice, beans, eggs intermittently, soups, indicating low fiber. - X-ray findings suggest constipation; recent stool tests were negative for infections or parasites. - Denies changes in fluid intake. The patient reports a diet primarily comprising chicken, rice, beans, occasional eggs, and soups, reflecting low fiber content. No recent dietary changes were noted. He did not mention any food allergies or restrictions. He consumes juices alongside meals. There was no indication of new medication or vitamin intake. - X-rays: Indicate possible constipation - Stool Tests: Negative for parasites and infection - Start fiber supplement with generic Metamucil, 1-2 times per day. - Purchase from [employer] or [employer] at an approximate cost of $13.00 per bottle. - Increase dietary fiber intake. - Schedule follow-up in three weeks for evaluation. Coding Level of Care Code Est Pt Level 3 (56349) Diagnoses Family history of colon cancer Z80.0 Asthma, unspecified asthma severity, unspecified whether complicated, unspecified whether persistent J45.909 Asthma complication type: unspecified Asthma persistence: unspecified Asthma severity: unspecified severity Sleep apnea, unspecified type G47.30 Sleep apnea type: unspecified type Congestive heart failure, unspecified HF chronicity, unspecified heart failure type I50.9 Heart failure chronicity: unspecified Heart failure type: unspecified
--- OUTSIDE RECORDS SUMMARY | 2025-02-12 12:17 | XMS_ITS | Patient Health Record ---
Author Organization [facility] Address [address] [place] [address] Care Team Providers Care Polyethylene Combiner Name Role Phone Tanner CHIU, Debbie Primary Care Provider Unavail able Sourav Pendleton Unavailable [phone] Allergies Allergen (clinical drug ingredient) Drug/Non Drug [...] Status W/U Status Risk Notes Problem Diarrhea (35093853) Diarrhea (787.91) Active confirmed Plan Of Treatment No Information Insurance Providers Payer Name Payer Address Payer Phone Subscriber Number Group Number Insured Name Patient Relationship to Insured Coverage Start Date Coverage End Date [employer] [address] [place] [address] [id number] ROXANN SMITH Self - patient is the insured Medical (General) History Medical History History ICD Code back pain anxiety depression schizophrenia colon polyps 02/2007-neg colonoscopy excep t for hyperplastic polyps and neg EGD except for a HH Denies MD,DM,CVA,Lung disease,renal dise ase Surgical History Surgery Date(Month/Year) Ulcer surgery with a B-I > 30 yrs ago CCY Back surgery
--- OUTSIDE RECORDS SUMMARY | 2025-02-12 12:17 | XMS_ITS | Clinical Summary ---
Author Organization [facility] ity Address [address] [place] [address] Care Team Providers Care Vascular Ultrasound Technologist Name Role Phone Abiodun Wilkins MD Primary Care Provider [phone]- [phone] Medical History Medical History Date Comments Abdominal [...] 05/06/2022 Hypertension/CHF/CAD Annual BMP Blood Test 05/18/2022 Depression Screening 06/04/2024 COVID-19 Vaccine (1 - 2023-2 5 season) 2025 Influenza Vaccine (#1) 2025 HIB Vaccines Aged [...] Documents on File Type Date Recorded Patient Talent Director Expl anation Health Care Decision (hx) 10/06/2020 [...] (hx) 02/27/2015 AD SCHERER DIRECTIVE Care Teams Vascular Ultrasound Technologist Relationship Specialty Start Date End Date Abiodun Wilkins MD [address] [place] [phone] PCP - General Rheumatology 08/01/21
== END 2025-02-12 11:24 | disposition home or self-care (01) ==
LOC: HO.HGI 10:06
PROVIDERS: Visit Provider Nurse Practitioner
DX: Z80.0 Family history of malignant neoplasm of digestive organs (principal); J45.909 Unspecified asthma, uncomplicated; G47.30 Sleep apnea, unspecified; I50.9 Heart failure, unspecified
CPT/HCPCS: 99213

== ENCOUNTER → 2025-02-12 10:05 | Outpatient (BNVA) | payer MEDICARE, SELFPAY | PROVIDERS: Visit Provider Nurse Practitioner | DX: K59.04 Chronic idiopathic constipation (principal); J45.909 Unspecified asthma, uncomplicated; G47.30 Sleep apnea, unspecified; I11.0 Hypertensive heart disease with heart failure; I50.9 Heart failure, unspecified; Z80.0 Family history of malignant neoplasm of digestive organs | CPT/HCPCS: 99212 ==

== ENCOUNTER 2025-03-06 10:25 | Outpatient (AMB) | payer MEDICARE, SELFPAY ==
[2025-03-06 10:27] VITALS: BP 151/61; PULSE 61; BMI 29.3
--- NOTE | 2025-03-06 10:27 | MHC.OFFVIS ---
Vital Signs 03/06/25 10:27 Height 5 ft 8 in Weight 192 lb 10.944 oz BMI 29.3 BP 151/61 H Blood Pressure Location Rt brachial Position Sitting Pulse 61 Intake Visit Reasons: Follow up 3wks constipation Intake Note: Patient in office today for follow up of constipation. CC: Patient reports doing well and states that the medication Jaz prescribed him has been working very well. Financial Sales Assistant Required: Yes Financial Sales Assistant Language: Kazakh Accompanied by: Self / Same As Patient Allergies aspirin (ASPIRIN) Allergy (Severe, Verified 03/06/25 10:45) ANAPHYLAXIS ibuprofen (From MOTRIN) Allergy (Severe, Verified 03/06/25 10:45) ANAPHYLAXIS Penicillins Allergy (Severe, Verified 03/06/25 10:45) ANAPHYLAXIS asenapine (From SAPHRIS) Allergy (Intermediate, Verified 03/06/25 10:45) ITCHING quetiapine (From SEROQUEL) Allergy (Intermediate, Verified 03/06/25 10:45) HTN morphine (MORPHINE) Allergy (Unknown, Verified 03/06/25 10:45) Unknown ChlorproMAZINE Allergy (Unknown, Uncoded 01/29/25 11:13) Unknown Clindamycin HCl Allergy (Unknown, Uncoded 01/29/25 11:13) Unknown Medication List - Last Reconciled 03/06/25 by ANN Banda albuterol sulfate 90 mcg/actuation 2 puffs inhalation Q4-6H PRN amlodipine 5 mg PO DAILY aripiprazole (Abilify) 2 mg PO DAILY [Blood pressure machine As directed] blood sugar diagnostic (M-SIX G2 strips) test daily blood-glucose meter (M-SIX G2) As directed cholecalciferol (vitamin D3) 25 mcg PO DAILY clonidine HCl 0.1 mg PO TID CPAP CPAP supplies CPAP (CPAP Machine/Device) As directed ferrous sulfate 325 mg PO DAILY mecobalamin (vitamin B12) 1,000 mcg PO DAILY metoprolol succinate ER 50 mg PO DAILY mirtazapine 30 mg PO BEDTIME olanzapine (Zyprexa) 20 mg PO BEDTIME ondansetron 4 mg PO BID PRN pantoprazole (Protonix) 20 mg PO BID prazosin 5 mg PO BEDTIME sodium,potassium,mag sulfates 17.5-3.13-1.6 gram (Suprep Bowel Prep Kit) 480 mL orally; FOR COLONOSCOPY PREP trazodone 150 mg PO DAILY venlafaxine ER 150 mg PO DAILY wheat dextrin (Best Fiber) 1.5 grams PO BID HPI HPI Follow up 3wks constipation: Details: Assessment & Plan (1) Family history of colon cancer: Comment: sister in 50's Code(s): Z80.0 - Family history of malignant neoplasm of digestive organs Category: Medical (2) Asthma: Code(s): J45.909 - Unspecified asthma, uncomplicated Category: Medical Qualifiers: Asthma complication type: unspecified Asthma persistence: unspecified Asthma severity: unspecified severity Qualified Code(s): J45.909 - Unspecified asthma, uncomplicated (3) Sleep apnea: Comment: uses CPAP Code(s): G47.30 - Sleep apnea, unspecified Category: Medical Qualifiers: Sleep apnea type: unspecified type Qualified Code(s): G47.30 - Sleep apnea, unspecified (4) Congestive heart failure: Code(s): I50.9 - Heart failure, unspecified Category: Medical Qualifiers: Heart failure chronicity: unspecified Heart failure type: unspecified Qualified Code(s): I50.9 - Heart failure, unspecified Plan Kazakh #V LIVE He continues on pantoprazole and Linzess. - The patient is a 74-year-old male presenting with constipation. - Symptoms initiated a week prior with difficulty in stooling despite the sensation to evacuate. - Previously had normal bowel motions, once daily. - No changes reported in medication or vitamin use. - Consumes a diet primarily of chicken, rice, beans, eggs intermittently, soups, indicating low fiber. - X-ray findings suggest constipation; recent stool tests were negative for infections or parasites. - Denies changes in fluid intake. The patient reports a diet primarily comprising chicken, rice, beans, occasional eggs, and soups, reflecting low fiber content. No recent dietary changes were noted. He did not mention any food allergies or restrictions. He consumes juices alongside meals. There was no indication of new medication or vitamin intake. - X-rays: Indicate possible constipation - Stool Tests: Negative for parasites and infection - Start fiber supplement with generic Metamucil, 1-2 times per day. - Purchase from [employer] or [employer] at an approximate cost of $13.00 per bottle. - Increase dietary fiber intake. - Schedule follow-up in three weeks for evaluation. TODAYS VISIT Kazakh # PFSH Medical History (Updated 03/06/25 @ 10:53 by ANN Banda) Chronic idiopathic constipation Nausea and vomiting Abdominal pain Right lower quadrant pain Diarrhea Pre-op examination Annual physical exam Encounter for colorectal cancer screening Constipation COVID-19 Shortness of breath Anemia Asthma BPH (benign prostatic hyperplasia) Arthritis Back pain History of traumatic head injury Schizophrenia Depression Sleep apnea Elevated cholesterol HTN (hypertension) Surgical History History of surgery Hx of cataract extraction Hx of cystoscopy Hx of cholecystectomy History of gastric surgery History of esophagogastroduodenoscopy (EGD) H/O colonoscopy Family History Mother Cancer Father Prostate cancer Brother No problems noted. Sister Colon cancer Other Mental health disorder Social History Housing: Apartment Alcohol intake: never Patient Tobacco Use Status: Never used Tobacco Tobacco use type: Cigarette e-Cigarette/Vaping Use: Never Used Second Hand Smoke Exposure: No service: No Current occupational status: disabled Cognitive needs: No Hearing needs: No Vision needs: Yes Review of Systems Const Denies fatigue, Denies fever(s), Denies night sweats, Denies poor appetite and Denies weight loss ENT Reports Normal hearing present, Denies dental pain, Denies dysphagia, Denies hearing loss, Denies mouth pain, Denies odynophagia, Denies throat swelling, Denies tongue swelling and Reports other (Dentition adequate) Card Reports no additional complaints Resp Reports no additional complaints GI Details: Denies abdominal pain, Denies melena, Denies bloating, Denies hematochezia, Reports constipation, Denies GI cramping, Denies dysphagia, Denies excessive flatus, Denies early satiety, Reports heartburn, Denies diarrhea, Denies nausea, Denies odynophagia, Denies vomiting and Denies hematemesis Skin/Breast Denies pruritus, Denies lesions, Denies rash and Denies jaundice Neuro Reports Normal hearing present and Denies Abnormal speech present Endo Denies fatigue Aller/Immun Denies throat swelling and Denies tongue swelling Physical Exam Vital Signs: BMI result Body Mass Index 29.3 Const General: cooperative, no acute distress, well developed and well groomed Nutritional Appearance: average body habitus and well nourished Orientation/consciousness: oriented to person, oriented to place and oriented to time Limitations: language barrier HEENT Head: Yes normocephalic and Yes atraumatic Eyes General: appearance normal, both eyes and all related structures Pupils: Equal, round and reactive pupils present Neck Neck: Yes normal visual inspection and Yes no lymphadenopathy Thyroid: Thyroid normal Resp Effort & Inspection: normal respiratory effort and able to speak in complete sentences Auscultation: clear to auscultation bilaterally Cardio Rate: regular rate Rhythm: regular rhythm Heart sounds: Normal, physiologic split S2 sound present Peripheral pulses: radial pulses present and posterior tibial pulses present GI Inspection: No distended and No Abdominal panniculus present Palpation (GI): Soft to palpation, nontender, no guarding, not rigid and No hepatosplenomegaly present Percussion: Yes normal to percussion Auscultation: normal bowel sounds Rectal Exam - Male: Yes deferred Skin General skin exam: no rashes or lesions noted, turgor normal, skin not dry, no jaundice, No spider nevi and no striae Rashes: no rashes Nails: normal Neuro General: oriented to person, oriented to place and oriented to time Cranial nerves: Yes Equal, round and reactive pupils present and Yes Normal hearing present Speech: No Abnormal speech present Extrem General: Yes normal to inspection, No clubbing, No cyanosis and No edema Psych Appearance: grossly normal and well kempt Mental Status: mental status grossly normal Speech and movement: Normal speech and movement present Affect: normal affect Attitude: cooperative Thought process: Normal thought process present and not confabulating Thought content: Normal thought content present Insight: Limited insight present (Psych) Judgement: Limited judgement present (Psych) Assessment & Plan Assessment & Plan (1) GERD (gastroesophageal reflux disease): Code(s): K21.9 - Gastro-esophageal reflux disease without esophagitis Category: Medical Plan Kazakh # He continues on pantoprazole and Linzess. However, with the addition of the fiber he has not needed the Linzess so instead we will continue only with the pantoprazole and the fiber. He has not yet been called for his EGD/colonoscopy but we have not gotten up to the January set of folks so I know this is not abnormal. Return office visit in 6 months EGD/colonoscopy Biopsy Medications: Refilled pantoprazole (Protonix) 20 mg PO BID 180 tabs 1RF R12 - Heartburn Coding Level of Care Code Est Pt Level 3 (96581) Diagnoses GERD (gastroesophageal reflux disease) K21.9
--- OUTSIDE RECORDS SUMMARY | 2025-03-06 11:19 | XMS_ITS | Patient Health Record ---
Author Organization [facility] Address [address] [place] [address] Care Team Providers Care Ice Cream Freezer Helper Name Role Phone Tanner CHIU, Debbie Primary Care Provider Unavail able Sourav Pendleton Unavailable [phone] Allergies Allergen (clinical drug ingredient) Drug/Non Drug [...] Status W/U Status Risk Notes Problem Diarrhea (21641961) Diarrhea (787.91) Active confirmed Plan Of Treatment No Information Insurance Providers Payer Name Payer Address Payer Phone Subscriber Number Group Number Insured Name Patient Relationship to Insured Coverage Start Date Coverage End Date [employer] [address] [place] [address] [phone] [id number] ROXANN SMITH Self - patient is the insured Medical (General) History Medical History History ICD Code back pain anxiety depression schizophrenia colon polyps 02/2007-neg colonoscopy excep t for hyperplastic polyps and neg EGD except for a HH Denies OR,DM,CVA,Lung disease,renal dise ase Surgical History Surgery Date(Month/Year) Ulcer surgery with a B-I > 30 yrs ago CCY Back surgery
--- OUTSIDE RECORDS SUMMARY | 2025-03-06 11:19 | XMS_ITS | Clinical Summary ---
Author Organization [facility] ity Address [address] [place] [address] Care Team Providers Care Ring Striker Name Role Phone Abiodun Wilkins MD Primary Care Provider +1- [phone] Medical History Medical History Date Comments Abdominal [...] 2001 Zoster Vaccines (1 of 2) 2001 Depression Screening 06/04/2024 COVID-19 Vaccine ( - 2023-2 5 season) 2025 Influenza Vaccine (#1) 2025 RSV Immunization Adult Patie nts (1 - 1-dose 75+ series) 2026 HIB Vaccines Aged Out No longer eligi [...] Documents on File Type Date Recorded Patient Character Impersonator Expl anation Health Care Decision (hx) 10/06/2020 [...] DIRECTIVE Health Care Decision (hx) 10/06/2020 AD SCHERRE DIRECTIVE Health Care Decision (hx) 10/06/2020 AD [...] (hx) 02/27/2015 AD SCHERER DIRECTIVE Care Teams Ring Striker Relationship Specialty Start Date End Date Abiodun Wilkins MD [address] [place] [phone] PCP - General Rheumatology 08/01/21
== END 2025-03-06 10:53 | disposition home or self-care (01) ==
LOC: HO.HGI 10:26
PROVIDERS: Visit Provider Nurse Practitioner
DX: K21.9 Gastro-esophageal reflux disease without esophagitis (principal)
CPT/HCPCS: 99213

== ENCOUNTER → 2025-03-06 10:25 | Outpatient (BNVA) | payer MEDICARE, SELFPAY | PROVIDERS: Visit Provider Nurse Practitioner | DX: K21.9 Gastro-esophageal reflux disease without esophagitis (principal); K59.00 Constipation, unspecified; Z80.0 Family history of malignant neoplasm of digestive organs | CPT/HCPCS: 99212 ==

== ENCOUNTER 2025-04-13 08:18 | Outpatient (AMB) | payer MEDICARE, SELFPAY ==
--- NOTE | 2025-04-13 08:27 | A.OFFPC_ITS ---
Vital Signs 04/13/25 08:28 Height 5 ft 8 in Weight 193 lb 4 oz BMI 29.4 BP 140/82 H Blood Pressure Location Lt brachial Position Sitting Pulse 56 Pulse Source Pulse Oximeter Temp 97.3 F Temp Source Temporal Artery Scan Pulse Oximetry (%) 96 Oxygen Delivery Method Room Air Intake Visit Reasons: 3 mo htn/chf/gerd/depression Intake Note: Patient is here to follow up on HTN, CHF, GERD, Depression. 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: Account Services Manager Name: [id number]/Regulo Information Interpreted: non-clinical & clinical Customer Service Representative: Not Required per policy Accompanied by: Self / Same As Patient Allergies aspirin (ASPIRIN) Allergy (Severe, Verified 04/13/25 08:37) ANAPHYLAXIS ibuprofen (From MOTRIN) Allergy (Severe, Verified 04/13/25 08:37) ANAPHYLAXIS Penicillins Allergy (Severe, Verified 04/13/25 08:37) ANAPHYLAXIS asenapine (From SAPHRIS) Allergy (Intermediate, Verified 04/13/25 08:37) ITCHING quetiapine (From SEROQUEL) Allergy (Intermediate, Verified 04/13/25 08:37) HTN morphine (MORPHINE) Allergy (Unknown, Verified 04/13/25 08:37) Unknown ChlorproMAZINE Allergy (Unknown, Uncoded 04/13/25 08:37) Unknown Clindamycin HCl Allergy (Unknown, Uncoded 04/13/25 08:37) Unknown Medication List - Last Reconciled 04/13/25 by AARON Tubbs albuterol sulfate 90 mcg/actuation 2 puffs inhalation Q4-6H PRN amlodipine 5 mg PO DAILY aripiprazole (Abilify) 2 mg PO DAILY [Blood pressure machine As directed] blood sugar diagnostic (rubberit G2 strips) test daily blood-glucose meter (rubberit G2) As directed cholecalciferol (vitamin D3) 25 mcg PO DAILY clonidine HCl 0.1 mg PO TID CPAP CPAP supplies CPAP (CPAP Machine/Device) As directed ferrous sulfate 325 mg PO DAILY mecobalamin (vitamin B12) 1,000 mcg PO DAILY metoprolol succinate ER 50 mg PO DAILY mirtazapine 30 mg PO BEDTIME olanzapine (Zyprexa) 20 mg PO BEDTIME ondansetron 4 mg PO BID PRN pantoprazole (Protonix) 20 mg PO BID prazosin 5 mg PO BEDTIME sodium,potassium,mag sulfates 17.5-3.13-1.6 gram (Suprep Bowel Prep Kit) 480 mL orally; FOR COLONOSCOPY PREP trazodone 150 mg PO DAILY venlafaxine ER 150 mg PO DAILY wheat dextrin (Best Fiber) 1.5 grams PO BID Tobacco use date assessed: 04/13/25 Fall risk assessment: No Falls in past year Last assessed Fall Risk: 04/13/25 Dental Screening Dental Screen Date: 01/09/25 HPI 3 mo htn/chf/gerd/depression HPI Details The patient is 75 year old male presenting for htn/chf/GERD/depression, sleep apnea Reports that he is feeling ok-Reports that he did not know that he had to recheck labs for this appointment A1c 6.0%. The patient is a 75-year-old male presenting for a follow-up visit for chronic disease management. He did not complete the requested follow-up blood work prior to the visit, stating he was unaware it was needed. The patient reports having only five pills remaining of amlodipine and is requesting a refill. He also reports being completely out of his Albuterol inhaler for asthma. Regarding his chronic conditions, he monitors his blood pressure at home with readings around 130 to 150 mmHg, but notes it does not get very high since starting medication. He continues to use his CPAP machine. Previously reported symptoms of dizziness and constipation have resolved. For health maintenance, a colonoscopy was previously ordered, but the patient states he was never contacted by the facility to schedule the procedure. Denies chest pain, shortness of breath heart palpitation or dizziness Denies abdominal pain or change in bowel habits Denies urinary symptoms PFSH Medical History Chronic idiopathic constipation Nausea and vomiting Abdominal pain Right lower quadrant pain Diarrhea Pre-op examination Annual physical exam Encounter for colorectal cancer screening Constipation COVID-19 Shortness of breath Anemia Asthma BPH (benign prostatic hyperplasia) Arthritis Back pain History of traumatic head injury Schizophrenia Depression Sleep apnea Elevated cholesterol HTN (hypertension) Surgical History History of surgery Hx of cataract extraction Hx of cystoscopy Hx of cholecystectomy History of gastric surgery History of esophagogastroduodenoscopy (EGD) H/O colonoscopy Family History Mother Cancer Father Prostate cancer Brother No problems noted. Sister Colon cancer Other Mental health disorder Social History Housing: Apartment Alcohol intake: never Patient Tobacco Use Status: Never used Tobacco Tobacco use type: Cigarette e-Cigarette/Vaping Use: Never Used Second Hand Smoke Exposure: No service: No Current occupational status: disabled Cognitive needs: No Hearing needs: No Vision needs: Yes Questionnaire PHQ-9 Over the last 2 weeks, how often have you been bothered by any of the following problems? Depression Screening Interpretation: Positive Depression Screening Done: Yes Source: Developed by Drs. Sourav Dela Cruz, Camila Lau, Gerard Nuñez and colleagues, with an educational dc from [employer]. Thrive Questionnaire Date Thrive assessed: 10/10/24 I am a: Patient What is your living situation today?: I have a steady place to live Within the past 12 months, did the food you bought not last and you didn't have the money to get more?: Never true Within the past 12 months, did you worry whether your food would run out before you got money to buy more?: Never true Do you have trouble paying for medicines?: Yes Do you have trouble getting transportation to medical appointments?: No Do you have trouble paying your heating and electricity bill?: No Do you have trouble taking care of your child, family member or friend?: Yes Do you have trouble with day-to-day activities such as bathing, preparing meals, shopping, managing finances, etc.?: Yes Are you currently unemployed and looking for a job?: Yes Are you interested in more education?: No Please select the resources that you would like help with: None Currently or been in a relationship where the following occur: No concerns reported THRIVE Score: 0 BENY-7 AMB Questionnaire BENY-7 Date BENY - 7 assessed: 01/09/25 Source: Developed by Drs. Sourav Dela Cruz, Gerard Quezada and colleagues, with an educational dc from [employer]. Review of Systems Const Denies headache(s) Eyes Denies loss of vision ENT Denies vertigo, Denies dizziness, Denies headache(s) and Denies sore throat Card Denies chest pain, Denies leg edema and Denies lightheadedness Resp Denies cough, Denies hemoptysis and Denies wheezing GI Denies abdominal pain, Denies melena, Denies constipation, Denies diarrhea and Denies vomiting Denies dysuria, Denies urinary frequency and Denies urinary urgency Musc Denies arthralgias, Denies joint swelling, Denies numbness and Denies tingling Neuro Denies Abnormal speech present, Denies behavioral changes, Denies vertigo, Denies dizziness, Denies headache(s), Denies loss of vision, Denies memory loss, Denies numbness and Denies tingling Psych Denies anxiety, Denies behavioral changes, Denies depression, Denies memory loss and Denies panic attacks Alvarez/Lymph Denies easy bleeding and Denies easy bruising Aller/Immun Denies wheezing Physical exam (Primary Care) Vital Signs: Last Vital Signs Temp 97.3 F 04/13/25 08:28 Pulse 56 04/13/25 08:28 BP 130/60 04/13/25 08:28 Pulse Ox 96 04/13/25 08:28 Oxygen Delivery Method Room Air 04/13/25 08:28 BMI result Body Mass Index 29.4 Tobacco/Smoking Status: Tobacco use Status Tobacco use date assessed 04/13/25 04/13/25 08:32 Patient Tobacco Use Status Never used Tobacco 04/13/25 08:32 Tobacco use type Cigarette 04/13/25 08:32 e-Cigarette/Vaping Use Never Used 04/13/25 08:32 Depression Screening Interpretation: Positive Thrive Assessment: Date of Thrive Assessment Date Thrive assessed 10/10/24 04/13/25 08:32 Currently or been in a relationship where the following occur: No concerns reported Const General: healthy appearing, no acute distress, alert and awake Nutritional Appearance: well nourished Orientation/consciousness: oriented to person, oriented to place and oriented to time HENMT Ears: TM's normal bilaterally General nose exam: Normal nasal mucous membranes and turbinates present Eyes Conjunctivae: conjunctivae normal Sclerae: sclerae normal Pupils: Equal, round and reactive pupils present Neck Neck: Yes no lymphadenopathy and Yes no JVD Thyroid: Thyroid normal Carotids: no bruits Resp Effort & Inspection: normal respiratory effort and not tachypneic Auscultation: no crackles, no rales, no rhonchi and no wheezes Cardio Rate: regular rate Rhythm: regular rhythm Heart sounds: no murmurs and normal S1 and S2 GI Palpation (GI): Soft to palpation, nontender, no hepatomegaly and no splenomegaly Auscultation: normal bowel sounds Skin General skin exam: no rashes or lesions noted and dry skin Neuro General: oriented to person, oriented to place and oriented to time Cranial nerves: Yes Equal, round and reactive pupils present Speech: No Abnormal speech present Gait exam (Neuro): Normal gait present Motor exam (neuro): no tremor noted Extrem Right upper extremity: full ROM Left upper extremity: full ROM Right lower extremity: full ROM; no edema Left lower extremity: full ROM; no edema Psych Mental Status: mental status grossly normal Speech and movement: Normal speech and movement present Affect: normal affect Attitude: cooperative Thought process: Normal thought process present Results AMB Hemoglobin A1c AMB Hemoglobin A1c 6.0 % Last Edit by DARREN Rucker on 04/13/25 09:03 Coding Diagnoses Depression, unspecified depression type F32.A Depression Type: unspecified Schizophrenia, unspecified type F20.9 Schizophrenia type: unspecified Hypertension, unspecified type I10 Hypertension type: unspecified Congestive heart failure, unspecified HF chronicity, unspecified heart failure type I50.9 Heart failure type: unspecified Heart failure chronicity: unspecified Hypercholesteremia E78.00 Vitamin D deficiency E55.9 Chronic idiopathic constipation K59.04 Right lower quadrant pain R10.31 Sleep apnea, unspecified type G47.30 Sleep apnea type: unspecified type Asthma, unspecified asthma severity, unspecified whether complicated, unspecified whether persistent J45.909 Asthma severity: unspecified severity Asthma persistence: unspecified Asthma complication type: unspecified Iron deficiency anemia, unspecified iron deficiency anemia type D50.9 Anemia type: iron deficiency Iron deficiency anemia type: unspecified iron deficiency Diarrhea, unspecified type R19.7 Diarrhea type: unspecified type Assessment & Plan Assessment & Plan (1) Depression: Code(s): F32.9 - Major depressive disorder, single episode, unspecified Category: Medical Qualifiers: Depression Type: unspecified Qualified Code(s): F32.A - Depression, unspecified (2) Schizophrenia: Code(s): F20.9 - Schizophrenia, unspecified Category: Medical Qualifiers: Schizophrenia type: unspecified Qualified Code(s): F20.9 - Schizophrenia, unspecified (3) HTN (hypertension): Code(s): I10 - Essential (primary) hypertension Category: Medical Qualifiers: Hypertension type: unspecified Qualified Code(s): I10 - Essential ( primary) hypertension (4) Congestive heart failure: Code(s): I50.9 - Heart failure, unspecified Category: Medical Qualifiers: Heart failure type: unspecified Heart failure chronicity: unspecified Qualified Code(s): I50.9 - Heart failure, unspecified (5) Hypercholesteremia: Code(s): E78.00 - Pure hypercholesterolemia, unspecified Category: Medical (6) Vitamin D deficiency: Code(s): E55.9 - Vitamin D deficiency, unspecified Category: Medical (7) Chronic idiopathic constipation: Code(s): K59.04 - Chronic idiopathic constipation Category: Medical (8) Right lower quadrant pain: Code(s): R10.31 - Right lower quadrant pain Category: Medical (9) Sleep apnea: Comment: uses CPAP Code(s): G47.30 - Sleep apnea, unspecified Category: Medical Qualifiers: Sleep apnea type: unspecified type Qualified Code(s): G47.30 - Sleep apnea, unspecified (10) Asthma: Code(s): J45.909 - Unspecified asthma, uncomplicated Category: Medical Qualifiers: Asthma severity: unspecified severity Asthma persistence: unspecified Asthma complication type: unspecified Qualified Code(s): J45.909 - Unspecified asthma, uncomplicated (11) Anemia: Code(s): D64.9 - Anemia, unspecified Category: Medical Qualifiers: Anemia type: iron deficiency Iron deficiency anemia type: unspecified iron deficiency Qualified Code(s): D50.9 - Iron deficiency anemia, unspecified (12) Diarrhea: Code(s): R19.7 - Diarrhea, unspecified Category: Medical Qualifiers: Diarrhea type: unspecified type Qualified Code(s): R19.7 - Diarrhea, unspecified Plan The plan includes managing the patient's hypertension by adding amlodipine 5 mg to better control blood pressure, as current medications are insufficient. The patient is advised to continue monitoring blood pressure at home and return in one week for a nurse check-up. For gastrointestinal symptoms, a stool sample will be collected to check for parasites, and an ultrasound will be scheduled to further investigate abdominal pain. The patient is reminded to adhere to the timing of Protonix administration to improve symptom control. A colonoscopy is scheduled for further evaluation, and the patient is encouraged to complete all lab work as soon as possible. Continue CPAP; reports compliance KUB ordered to evaluate abdomen. Continue MiraLax 17 g daily. Continue Zyprexa 20 mg at bedtime, prazosin 5 mg at bedtime, brexpiprazole 2 mg daily, and chlorpromazine follow up with psychiatry as scheduled History of heart failure has not followed up with Cardiology in a while. Apparently the patient has not been taking his metoprolol ER 50 mg. Discussed with the patient the importance of taking this medication and the risk of leaving in his blood pressure in a prolonged elevated state. The patient was referred to Cardiology on previous visit and has been seen and is being work up. Patient was informed and verbally consented to the use of an ambient scribe for clinic note documentation during this visit. Orders: Orders AMB Hemoglobin A1c Today Z13.9 - Encounter for screening, unspecified Medications: New albuterol sulfate 90 mcg/actuation 2 puffs inhalation Q4-6H PRN 8.5 grams 3RF wheezing Refilled amlodipine 5 mg PO DAILY 90 tabs 3RF
[2025-04-13 08:28] VITALS: BP 140/82; PULSE 56; TEMP 36.3; O2SAT 96; BMI 29.4
== END 2025-04-13 09:07 | disposition home or self-care (01) ==
LOC: HO.HMCH 08:20
PROVIDERS: PCP Internal Medicine
DX: Z13.9 Encounter for screening, unspecified (principal)

== ENCOUNTER → 2025-04-13 08:18 | Outpatient (BNVA) | payer MEDICARE, SELFPAY | PROVIDERS: PCP Internal Medicine | DX: I11.0 Hypertensive heart disease with heart failure (principal); I50.9 Heart failure, unspecified; F32.A Depression, unspecified; F20.9 Schizophrenia, unspecified; E78.00 Pure hypercholesterolemia, unspecified; E55.9 Vitamin D deficiency, unspecified; K59.04 Chronic idiopathic constipation; G47.30 Sleep apnea, unspecified; J45.909 Unspecified asthma, uncomplicated; D50.9 Iron deficiency anemia, unspecified; R19.7 Diarrhea, unspecified; E53.8 Deficiency of other specified B group vitamins; R10.31 Right lower quadrant pain | CPT/HCPCS: 83036; 99212 ==